=== PATIENT | male | born 1950 | race Caucasian/White ===

== ENCOUNTER 2018-01-07 09:46 | Outpatient (CLI) | payer BC, MEDICARE ==
--- NOTE | 2018-01-07 16:00 | MRI ---
MRI LUMBAR SPINE WITHOUT CONTRAST: HISTORY: Low back pain radiating down the right leg. FINDINGS: Vertebral body heights are maintained. There is a Schmorl's node at the superior endplate of the L4- L5 vertebral body. There are focal areas of slightly decreased T1 and increased T2 signal in the ann-marie tebral bodies at multiple levels, likely atypical hemangiomas. These are present in the setting of d iffuse T1 hypointensity. The conus medullaris ends at the L1 level. There are facet hypertrophic ch anges, most prominent at the L3-L4, L4-L5, and L5-S1 levels. No focal disk herniation, central canal stenosis, or neural foraminal stenosis is identified. The paraspinal musculature is normal. Incidental note is made of a 2.8 cm probably cystic mass arising from the left kidney. A 2 cm probabl e cyst is also seen in the left kidney. IMPRESSION: 1. Diffuse T1 hypointensity of the bone marrow may be due to anemia or infiltrative or neoplastic di sorders. 2. No evidence of focal disk herniation, central canal stenosis, or neural foraminal stenosis. 3. Left renal masses, likely cysts. Evaluation with bilateral renal ultrasound is recommended. This study was interpreted in consultation with Dr. Speedy Delgado, who concurs. POS: [facility]
== END 2018-01-07 09:47 | disposition home or self-care (01) ==
LOC: SCSMRI 09:46
PROVIDERS: ATTEND Internal Medicine
DX: M54.41 Lumbago with sciatica, right side (principal); R93.7 Abnormal findings on diagnostic imaging of other parts of musculoskeletal system; N28.89 Other specified disorders of kidney and ureter
CPT/HCPCS: 72148

== ENCOUNTER 2018-01-15 18:34 | Inpatient (IN) | payer BC, MEDICARE ==
[2018-01-15] MEDS ORDERED: Ondansetron ODT 4 MG TAB SL PRN (22:13)
[2018-01-15] MEDS ORDERED: Acetaminophen 325 MG TAB PO PRN (22:13)
[2018-01-15] MEDS ORDERED: Ondansetron HCl/PF 4 MG/2 ML Vial IVP PRN (22:13)
[2018-01-15 22:19] VITALS: BMI 33.0
[2018-01-15] MEDS ORDERED: hydrALAZINE 20 MG/ML VIAL SLOW IVP PRN (23:27)
[2018-01-16] MEDS ORDERED: Sodium Chloride 0.9% 1,000 ML IV SCH (02:00)
[2018-01-16] MEDS ORDERED: Prevnar 13-Val Conj/PF 0.5 ML SYRINGE IM ONE ×2 (09:00→13:00)
[2018-01-16] MEDS ORDERED: Nitroglycerin 0.4 MG TAB (25 Tab Bottle) SL PRN (09:16)
[2018-01-16] MEDS ORDERED: traZODone HCl 50 MG TAB PO PRN (09:16)
[2018-01-16] MEDS ORDERED: Calcium Carbonate 500 MG ChewTAB PO PRN (09:16)
[2018-01-16] MEDS ORDERED: Diabetic Tussin 200 MG/10 ML UDCUP PO PRN (09:16)
[2018-01-16] MEDS ORDERED: traMADol HCl 50 MG TAB PO PRN (09:16)
[2018-01-16] MEDS ORDERED: Mag-Al 1200 mg/1200 mg/30 ML UDCUP PO PRN (09:16)
[2018-01-16] MEDS ORDERED: Benzonatate 100 MG CAP PO PRN (09:16)
[2018-01-16] MEDS ORDERED: cloNIDine 0.1 MG TAB PO PRN (09:16)
[2018-01-16] MEDS ORDERED: Loratadine 10 MG TAB PO PRN (09:16)
[2018-01-16] MEDS ORDERED: hydrALAZINE 20 MG/ML VIAL SLOW IVP PRN (09:16)
[2018-01-16] MEDS ORDERED: Ondansetron HCl/PF 4 MG/2 ML Vial IVP PRN (09:16)
[2018-01-16] MEDS ORDERED: Amlodipine 5 MG TAB PO SCH (09:30)
[2018-01-16] MEDS ORDERED: traMADol HCl 50 MG TAB PO SCH (09:30)
[2018-01-16] MEDS ORDERED: Hydrochlorothiazide 25 MG TAB PO SCH (09:45)
[2018-01-16] MEDS ORDERED: Vancomycin HCl 1.5 GM in Sodium Chloride 0.9% 250 ML 300 ML IVPB SCH (10:15)
[2018-01-16 10:28] LABS: ALT (SGPT) 86 U/L (8-55); AST (SGOT) 26 U/L (5-34); Albumin 3.3 g/dL (3.4-4.8); Alkaline Phosphatase 144 U/L (40-150); Anion Gap 11 mmol/L (10-20); BUN (Urea Nitrogen) 15 mg/dL (8.4-25.7); Bilirubin, Total 2.2 mg/dL (0.2-1.2); Calc. Creatinine Clearance 120 mL/min (70-130); Calcium 9.4 mg/dL (7.8-10.44); Carbon Dioxide 26 mmol/L (23-31); Chloride 102 mmol/L (98-107); Estimated GFR-MDRD Greater than 90; Globulin 3.2 g/dL (2.4-3.5); Glucose 133 mg/dL (80-115); Magnesium 2.1 mg/dL (1.6-2.6); Potassium 4.1 mmol/L (3.5-5.1); Protein, Total 6.5 g/dL (5.8-8.1); Sodium 135 mmol/L (136-145)
[2018-01-16 10:33] LABS: Band 1 % (5-11); Hemoglobin 13.5 g/dL (14.0-18.0); Lymphocytes 5 % (21-51); MDiff Complete? YES; Mean Corpuscular HGB CONC 31.9 g/dL (32.0-36.0); Mean Corpuscular Hemoglobin 29.8 pg (27.0-31.0); Mean Corpuscular Volume 93.2 fL (78.0-98.0); Mean Platelet Volume 8.8 fL (7.4-10.4); Monocytes 25 % (0-10); Neutrophil 69 % (42-75); PLT Morphology Comment PLT SLIGHTLY DECREASED; Platelet Count 114 thou/uL (130-400); RBC Distribution Width 13.6 % (11.5-14.5); Red Blood Cell (RBC) Count 4.53 mill/uL (4.70-6.10); White Blood Cell (WBC) Count 20.6 thou/uL (4.8-10.8)
--- NOTE | 2018-01-16 10:38 | HP ---
DATE OF ADMISSION: 01/16/2018 PRIMARY CARE PHYSICIAN: Evna Flynn M.D. CHIEF COMPLAINT: Fatigue, fever, abdominal pain and night sweats of 4 days duration. HISTORY OF PRESENTING ILLNESS: Mr. Calle is a very pleasant 67-year-old male with past medical histo ry of enlarged prostate, status post prostate biopsy, otherwise healthy, who came to the emergency ro om in [place] with the above-mentioned complaint. History is mainly obtained by the patient himsel f and records from [place] and our own emergency room reviewed extensively. According to Ms. Calle, he has been feeling fine up until Friday that was about 4 days ago. On morning, he woke up feeling really tired and fatigued. Since then he has been having on and of f high grade fevers as well as a dull abdominal pain that is diffuse in nature. He is constipated si nce then as well. He also noticed that he has been having excessive night sweats. He denies any rec ent weight gain or weight loss. 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 He denies any risk factors for HIV or hepatitis. He does report that about few weeks ago, he sneezed too hard and instantly felt a pull on one of the back muscles. Since then he has been having some pain that is traveling down to his leg. He has bee n treated with multiple rounds of steroids by his primary care physician as well as pain medications and it is somewhat better. He also underwent a lumbar spinal MRI on 01/07/2018 for this complaint an d it was negative for any disk herniation, central canal stenosis or neural foraminal stenosis. Left renal mass is likely cysts were seen. However, there is a diffuse T1 hypointensity of the bone deena ow, which may be due to anemia versus infiltrative process versus neoplasm. In the [place] emergency room, his initial examination showed leukocytosis with WBC count of 23,[address] scan of the abdomen and pelvis was done and I do not have the results of the test, but it stat es that it showed hypodense lesions in the spleen with phlegmonous changes characteristic of abscess. He received vancomycin and Rocephin and 2 liters normal saline in [place] and was transferred to our facility. In our emergency room upon presentation, he was hypertensive with blood pressure of 176/81, otherwise hemodynamically stable, temperature 98.3. He was stable and is now being admitted for further evalu ation and care. He has received pneumococcal vaccine since then and more IV fluids. He denies any chest pain, shortness of breath, cough, rhinorrhea, or sore throat. He denies any bloo d in his stools or black tarry stools. He denies any muscle weakness or paresthesias. He denies any headache or vision changes. Blood cultures were obtained over at the outside Emergency Room. PAST MEDICAL HISTORY: Benign prostatic hypertrophy. PAST SURGICAL HISTORY: Prostate biopsy. SOCIAL HISTORY: He works in a residential and quit smoking about 50 years ago. He does occasionally smoke a cigar or two a day. No history of drug or alcohol abuse. FAMILY HISTORY: Significant for valve replacement and lung cancer in his father who was also a smoke r. He also had atherosclerotic disease. No family history of any cancer, bleeding or clotting disor ders. ALLERGIES: PENICILLIN. CURRENT MEDICATIONS: Tamsulosin 0.4 mg daily, Benicar 40/12.5 one tablet daily. REVIEW OF SYSTEMS: A 12 point review of systems was done. It is negative except for those mentioned in the history and physical. LABORATORY DATA AND IMAGING DATA: Labs are reviewed from the [place] [facility]. His CBC wyatt ws WBCs of 27.20, hemoglobin 15.4, platelet 142, neutrophils 73%. Serum chemistry shows sodium 135, potassium 4, chloride 98, bicarbonate 25, anion gap 16. Blood sugar 101, BUN 17, creatinine 0.9, bentley cium 10.35, total bilirubin 2.8, alkaline phosphate is elevated to 159. AST and ALT are normal. Tot al protein is 7.6 with 3.7 grams per deciliter of the albumin. Lactic acid is less than 1.5, CK-MB i s 0.60, troponin 0.015. Urinalysis unremarkable. Chest x-ray report is negative for any acute cardi opulmonary process. Twelve lead EKG by my review shows normal sinus rhythm without any acute ST or T -wave changes. QTC is 469 milliseconds. PHYSICAL EXAMINATION: VITAL SIGNS: Most recent T-max of 99.7, heart rate 80, respirations 20, saturating 91% on room air, blood pressure 148/70. GENERAL APPEARANCE: No acute distress. He does appear ill and sweaty, but otherwise no acute distre ss. HEENT: Mucous membrane is moist and pink. No oropharyngeal exudate or erythema. No candidiasis. N o oral thrush. No scleral icterus. No conjunctival pallor. Head is normocephalic, atraumatic. Pup ils are equal, reactive to light and accommodation. NECK: Supple without any lymphadenopathy, JVD or bruit. CHEST: Clear to auscultation without any wheezing, rales or rhonchi. CARDIOVASCULAR: Rate and rhythm is regular without any murmur, rubs or gallops. ABDOMEN: Tender to palpation diffusely without any obvious bruises. EXTREMITIES: Free of any cyanosis, clubbing, or edema. BACK/MUSCULOSKELETAL: No point tenderness to spinal examination. No CVA tenderness. NEUROLOGIC: Examination is nonfocal. SKIN: Free of any rashes or bruises. I feel warm and dry to touch. PSYCHIATRIC: Normal affect. IMPRESSION AND PLAN: 1. Sepsis, likely secondary to splenic abscess. Bacteremia is suspected from an unknown source. Th e patient will be started on broad spectrum empiric IV antibiotics and we will repeat the labs includ ing CBC, CMP, magnesium, phosphorus. Check for HIV status as well. Check for urinalysis. We will also repeat the blood cultures. Given the possibility of bacteremia; infective endocarditis will als o be ruled out by a transthoracic echocardiogram. Clinical suspicion is low as there is no delta sig ns or symptoms to suggest endocarditis. Possibility of osteomyelitis versus diskitis can also not be ruled out, especially given the fact that he had even hypodensities seen in the lumbar spine. He mi ght need MRI of the thoracic and cervical spine as well. We will consult Infectious Disease, Dr. Ed evans for further recommendations with regards to that. I am trying to get the read of the CT scan done at the [place] [facility] for our EMR. Continue symptomatic and supportive care. 2. Hypertension. Resume his home medication of olmesartan/hydrochlorothiazide and add p.r.n. antihy pertensives. 3. Benign prostatic hypertrophy. Continue Flomax. 4. Code status: FULL CODE. Discussed with the patient. 5. Deep venous thrombosis and gastrointestinal prophylaxis and p.r.n. medications. DISPOSITION: Mr. Calle is currently being admitted for sepsis and splenic abscess of unknown origin. Estimated length of stay is at least 2-3 midnights. He is hemodynamically stable. Further managem ent will depend upon his clinical course in the hospital.
[2018-01-16 10:47] LABS: HIV (1/2) Antibody/Antigen Non-Reactive (NonReactive); HIV 1/2 INDEX 0.12 S/CO (<1.00)
[2018-01-16 10:53] LABS: Bilirubin Negative (Negative); Blood, Urine Negative (Negative); Clarity CLEAR (Clear); Glucose, Urine (Dipstick) Negative (Negative); Leukocyte Negative (Negative); Nitrite Negative (Negative); Protein, Urine (Dipstick) Negative (Neg-Trace); Specific Gravity, Urine 1.007 (1.002-1.036)
[2018-01-16 10:55] LABS: Bacteria/HPF None Seen HPF (None Seen); Hyaline Casts/LPF 0-3 HYALINE CAST LPF (0-3 Hyaline); Pathc Cast-AUWi Flag 0.14 (0-2.49); RBC/HPF 0-3 HPF (0-3); Squamous Epithelial None Seen HPF (0-3); WBC/HPF None Seen HPF (0-3)
[2018-01-16] MEDS ORDERED: VANCOMYCIN IVPB PRN (11:57)
[2018-01-16] MEDS ORDERED: Meropenem 1 GM in Sodium Chloride 0.9% 100 ML IVPB SCH (12:00)
[2018-01-16] MEDS: HYDROcodone/Acetaminophen 5/325 mg Tablet PO PRN ×2 (14:23→20:59)
[2018-01-16] MEDS: Sodium Chloride 0.9% 1,000 ML IV SCH ×2 (14:27→18:35)
[2018-01-16] MEDS: MEROPENEM 1 GM/50 ML 1 GM in Premix Bag 1 BAG IVPB SCH (19:35)
[2018-01-16] MEDS ORDERED: Vancomycin HCl 1 GM in Premix Bag 1 BAG IVPB SCH (21:00)
[2018-01-16] MEDS: Acetaminophen 325 MG TAB PO PRN (21:12)
[2018-01-16] MEDS: Vancomycin HCl 1.5 GM in Sodium Chloride 0.9% 250 ML 300 ML IVPB SCH (22:05)
--- NOTE | 2018-01-16 22:19 | CON ---
DATE OF CONSULTATION: 01/16/2018 REASON FOR CONSULTATION: Splenic lesions. HISTORY OF PRESENT ILLNESS: A 67-year-old with a history of BPH with a recent prostate biopsy with b enign pathology, who has developed fairly sudden onset of general malaise, fever, sweats, and abdomin al pain across the upper abdomen and left flank for the past 4 days and some respiratory symptoms, th e week prior to this with some sneezing and felt to have pulled some of his back muscles. He has rec eived corticosteroids for management of his presumed muscle sprain. He also had a lumbar spine MRI, which was not remarkable. He went to [place] [facility], because of this new development and i nitial evaluation showed white cell count 23,[address] of abdomen and pelvis, which demonstrated h ypodense lesions in the spleen. I do not have copy of the study, so other details are not available at this time. Patient has been given broad spectrum coverage and transferred. He is awake and alert . Family in the room with patient. He appears to be in no acute distress, but chronically ill, feel ing unwell. No headaches, visual symptoms, sore throat, odynophagia, dysphagia. No toothache, no ba ck pain, no dyspnea or cough. No diarrhea, no genitourinary symptoms, no joint symptoms or skin diso rder. No neurological symptoms. PAST MEDICAL HISTORY: BPH, prostate biopsy with benign pathology. SOCIAL HISTORY: Works as a general practitioner. Former smoker, quit 50 years ago. FAMILY HISTORY: Not remarkable. ALLERGIES: PENICILLIN with rash. CURRENT MEDICATIONS: Maalox, Tessalon, Dulcolax, Tums, Catapres, Lovenox, Robitussin, Apresoline, hy drochlorothiazide, Claritin, Ativan, meropenem, nitroglycerin, Senokot, vancomycin. PHYSICAL EXAMINATION: VITAL SIGNS: T-max 99.7, blood pressure 140/70, pulse 80, respirations 20, O2 sat 92%. SKIN: Not remarkable. No lymphadenopathy. HEENT: Ocular movements conjugate. Sclerae white. Pupils are equal, conjunctivae normal. Nasal pa ssages are patent. Oral cavity not remarkable. NECK: Supple. LUNGS: Symmetric air entry without any wheezing or crackles. HEART: S1, S2, regular rate without murmurs. There is tenderness in the left flank back area. I wo uld say at least moderate and sometimes marked tenderness. ABDOMEN: Not distended, no ascites. No bladder distention. : No genital abnormalities. EXTREMITIES: No joint inflammatory activity. Pulses are 1+ in dorsalis pedis. Plantar responses ar e flexure, moves extremities equally. NEUROLOGIC: Cognitive function appears to be intact. LABORATORY DATA: White cell count 20.6, hemoglobin 13.5, platelets 140,000 with 69% neutrophils, 1% bands, 5% lymphocytes, 25% monocytes. Sodium 135, creatinine 0.83, glucose 133. Bilirubin 2.2, ALT 86, albumin 3.3. Urinalysis normal. HIV nonreactive. Influenza was nonreactive. The images from [facility] CT done in [place] are not available yet and lumbar spine MRI done on 01/07/2018 with left renal masses likely cysts, diffuse T1 hypointensity bone marrow, possible anemia or infiltrative or neopla stic disorder. ASSESSMENT: 1. Benign prostatic hypertrophy. 2. Abnormalities on CT of abdomen indicative of splenic abscess. 3. Neutrophilia and fever of acute onset. DISCUSSION: Differential diagnosis includes splenic abscesses secondary to various infectious etiolo gies. Splenic abscesses are usually either hematogenous or secondary to contiguous spread from organ s in the vicinity of the spleen including possibility of kidney, pancreas, and colon. In the episode of hematogenous dissemination, the usual culprits include Staphylococcus aureus, Gram-negative rods, Bartonella, Salmonella, Brucella, and Mycobacterium tuberculosis. Contiguous spread typically with enteropathogens and anaerobes. Ideally, one would like to do a percutaneous aspirate for cultures to identify the organism and I would recommend that consultation with Radiology. Echocardiogram has al ready been performed. I do not see the interpretation yet of the echo, but if blood cultures remain negative, then though endocarditis would be unlikely. Continue current antimicrobials for the time b eisuzi.
[2018-01-17] MEDS: Acetaminophen 325 MG TAB PO PRN (02:19)
[2018-01-17] MEDS: MEROPENEM 1 GM/50 ML 1 GM in Premix Bag 1 BAG IVPB SCH ×3 (03:25→19:39)
[2018-01-17 05:35] LABS: Anion Gap 8 mmol/L (10-20); BUN (Urea Nitrogen) 12 mg/dL (8.4-25.7); Calc. Creatinine Clearance 123 mL/min (70-130); Calcium 8.8 mg/dL (7.8-10.44); Carbon Dioxide 30 mmol/L (23-31); Chloride 103 mmol/L (98-107); Estimated GFR-MDRD Greater than 90; Glucose 120 mg/dL (80-115); Potassium 3.6 mmol/L (3.5-5.1); Sodium 137 mmol/L (136-145)
[2018-01-17 06:15] LABS: Hemoglobin 12.1 g/dL (14.0-18.0); Hypochromia SLIGHT = 6-15 cells (100X) (0-5/hpf); Lymphocytes 5 % (21-51); MDiff Complete? YES; Mean Corpuscular HGB CONC 30.7 g/dL (32.0-36.0); Mean Corpuscular Hemoglobin 28.6 pg (27.0-31.0); Mean Corpuscular Volume 93.2 fL (78.0-98.0); Mean Platelet Volume 8.8 fL (7.4-10.4); Monocytes 30 % (0-10); Neutrophil 65 % (42-75); PLT Morphology Comment Appears Decreased; Platelet Count 98 thou/uL (130-400); RBC Distribution Width 13.2 % (11.5-14.5); Red Blood Cell (RBC) Count 4.22 mill/uL (4.70-6.10); White Blood Cell (WBC) Count 21.5 thou/uL (4.8-10.8)
[2018-01-17] MEDS: Hydrochlorothiazide 25 MG TAB PO SCH (08:51)
[2018-01-17] MEDS: Tamsulosin HCl 0.4 MG CAP PO SCH (08:52)
[2018-01-17] MEDS: Enoxaparin Sodium 40 MG/0.4 ML SYRINGE SC SCH (08:52)
[2018-01-17] MEDS ORDERED: Amlodipine 5 MG TAB PO SCH (09:00)
[2018-01-17] MEDS: HYDROcodone/Acetaminophen 5/325 mg Tablet PO PRN ×3 (09:55→20:26)
[2018-01-17] MEDS: Vancomycin HCl 1.5 GM in Sodium Chloride 0.9% 250 ML 300 ML IVPB SCH ×2 (11:37→22:36)
[2018-01-17] MEDS: Sodium Chloride 0.9% 1,000 ML IV SCH (17:00)
[2018-01-17] MEDS: Bisacodyl 5 MG TAB PO PRN (20:30)
[2018-01-17 22:29] LABS: Vancomycin, Trough 9.9 ug/mL
[2018-01-18] MEDS: Lorazepam 1 MG TAB PO PRN ×2 (00:44→12:09)
[2018-01-18] MEDS: HYDROcodone/Acetaminophen 5/325 mg Tablet PO PRN ×5 (00:44→21:55)
[2018-01-18] MEDS: MEROPENEM 1 GM/50 ML 1 GM in Premix Bag 1 BAG IVPB SCH ×3 (03:11→19:22)
[2018-01-18] MEDS: Sodium Chloride 0.9% 1,000 ML IV SCH ×2 (06:02→21:59)
[2018-01-18] MEDS: Vancomycin HCl 1.5 GM in Sodium Chloride 0.9% 250 ML 300 ML IVPB SCH ×3 (07:38→23:54)
[2018-01-18] MEDS: Hydrochlorothiazide 25 MG TAB PO SCH (07:40)
[2018-01-18] MEDS: Tamsulosin HCl 0.4 MG CAP PO SCH (07:40)
[2018-01-18] MEDS: Enoxaparin Sodium 40 MG/0.4 ML SYRINGE SC SCH (07:41)
[2018-01-18 09:31] LABS: Hemoglobin 12.2 g/dL (14.0-18.0); Mean Corpuscular HGB CONC 32.2 g/dL (32.0-36.0); Mean Corpuscular Hemoglobin 30.2 pg (27.0-31.0); Mean Corpuscular Volume 93.6 fL (78.0-98.0); Mean Platelet Volume 9.1 fL (7.4-10.4); Platelet Count 90 thou/uL (130-400); RBC Distribution Width 13.1 % (11.5-14.5); Red Blood Cell (RBC) Count 4.03 mill/uL (4.70-6.10); White Blood Cell (WBC) Count 13.5 thou/uL (4.8-10.8)
[2018-01-18 09:48] LABS: Anion Gap 9 mmol/L (10-20); BUN (Urea Nitrogen) 10 mg/dL (8.4-25.7); Calc. Creatinine Clearance 123 mL/min (70-130); Carbon Dioxide 30 mmol/L (23-31); Chloride 101 mmol/L (98-107); Estimated GFR-MDRD Greater than 90; Glucose 102 mg/dL (80-115); Potassium 3.4 mmol/L (3.5-5.1); Sodium 137 mmol/L (136-145)
[2018-01-18 10:07] LABS: Band 2 % (5-11); Hypochromia SLIGHT = 6-15 cells (100X) (0-5/hpf); Large Platelets SLIGHT; Lymphocytes 8 % (21-51); MDiff Complete? YES; Monocytes 30 % (0-10); Neutrophil 58 % (42-75); PLT Morphology Comment Appears Decreased; Polychromasia SLIGHT = 2-3 cells (100X) (0-2/hpf); Reactive Lymphocytes 2 % (0-10)
[2018-01-18] MEDS: Senokot 8.6 MG TAB PO PRN (12:09)
--- NOTE | 2018-01-18 18:52 | RAD ---
KUB AND UPRIGHT AND PA CHEST: HISTORY: Splenic abscess. Sepsis. Increased abdominal pain. COMPARISON: CT study from 01/15/2018. FINDINGS: ABDOMEN: The bowel gas pattern shows air within some mildly distended small bowel loops and some gas eous distention in the colon. No free air is demonstrated. No radiopaque calculi are visualized. CHEST: Heart size is within normal limits. There are some linear parenchymal changes within the rig ht base, suggesting some minimal atelectasis. No confluent infiltrate. Calcified hilar lymph nodes are noted. IMPRESSION: Gaseous distention of the abdomen without signs of obstruction. POS: [facility]
[2018-01-18 23:47] LABS: Vancomycin, Trough 19.9 ug/mL
[2018-01-19] MEDS: Lorazepam 1 MG TAB PO PRN (03:58)
[2018-01-19] MEDS: HYDROcodone/Acetaminophen 5/325 mg Tablet PO PRN ×3 (03:58→21:24)
[2018-01-19] MEDS: MEROPENEM 1 GM/50 ML 1 GM in Premix Bag 1 BAG IVPB SCH ×3 (04:01→19:37)
[2018-01-19 04:45] LABS: Anion Gap 16 mmol/L (10-20); BUN (Urea Nitrogen) 13 mg/dL (8.4-25.7); Calc. Creatinine Clearance 118 mL/min (70-130); Calcium 9.8 mg/dL (7.8-10.44); Carbon Dioxide 28 mmol/L (23-31); Chloride 98 mmol/L (98-107); Estimated GFR-MDRD 89; Glucose 104 mg/dL (80-115); Potassium 3.6 mmol/L (3.5-5.1); Sodium 138 mmol/L (136-145)
[2018-01-19 04:50] LABS: Hemoglobin 13.1 g/dL (14.0-18.0); Hypochromia SLIGHT = 6-15 cells (100X) (0-5/hpf); Lymphocytes 5 % (21-51); MDiff Complete? YES; Mean Corpuscular HGB CONC 31.7 g/dL (32.0-36.0); Mean Corpuscular Hemoglobin 29.7 pg (27.0-31.0); Mean Corpuscular Volume 93.8 fL (78.0-98.0); Mean Platelet Volume 9.6 fL (7.4-10.4); Monocytes 22 % (0-10); Neutrophil 73 % (42-75); PLT Morphology Comment Appears Adequate; Platelet Count 131 thou/uL (130-400); Red Blood Cell (RBC) Count 4.42 mill/uL (4.70-6.10); White Blood Cell (WBC) Count 13.9 thou/uL (4.8-10.8)
[2018-01-19] MEDS: Enoxaparin Sodium 40 MG/0.4 ML SYRINGE SC SCH (08:32)
[2018-01-19] MEDS: Vancomycin HCl 1.25 GM in Sodium Chloride 0.9% 250 ML 250 ML IVPB SCH ×3 (08:32→23:41)
[2018-01-19] MEDS: Hydrochlorothiazide 25 MG TAB PO SCH (08:33)
[2018-01-19] MEDS: Tamsulosin HCl 0.4 MG CAP PO SCH (08:33)
[2018-01-19] MEDS: Bisacodyl 5 MG TAB PO PRN (08:35)
--- NOTE | 2018-01-19 08:55 | PDOC.PN ---
- Subjective Encounter Start Date: 01/17/18 Encounter Start Time: 12:50 -: old records requested/rev Pt seen and examined, chart reviewed inits entirety, this is my first visit with this patient follow up for splenic lesions, thought be abscesses. Seen by ID, Meropenem continued. Dr Hsieh favors getting a biopsy or aspirate. Pt has tmax decreasing, 100.1 overnight. abs pain persists, controlled somewhat. NO N/V, no CP or SOB, no Diarrhea. No BM since last friday All systems reviewed and neg x as above - Objective Resuscitation Status: Resuscitation Status FULL:Full Resuscitation MAR Reviewed: Yes Vital Signs & Weight: Vital Signs (12 hours) Temp Pulse Resp BP Pulse Ox 01/19/18 07:35 98.3 F 74 14 135/77 93 L Weight Weight 223 lb 4.8 oz I&O: 01/18/18 01/19/18 01/20/18 06:59 06:59 06:59 Intake Total 4730 4085 Output Total 3600 3775 Balance 1130 310 Result Diagrams: 01/19/18 03:56 01/19/18 03:56 Additional Labs: WBC 20.1 to 21.5. Radiology Reviewed by me: Yes EKG Reviewed by me: Yes Phys Exam - Physical Examination Constitutional: NAD HEENT: PERRLA, moist MMs, sclera anicteric, oral pharynx no lesions Neck: no nodes, no JVD, supple, full ROM Respiratory: no wheezing, no rales, no rhonchi, clear to auscultation bilateral Cardiovascular: RRR, no significant murmur, no rub Gastrointestinal: positive bowel sounds tense, distended and tympanitic, mild diffuse tenderness, no rebound Musculoskeletal: edema present Neurological: non-focal, normal sensation, moves all 4 limbs Lymphatic: no nodes Psychiatric: normal affect, A&O x 3 Skin: no rash, normal turgor, cap refill <2 seconds Dx/Plan (1) Splenic abscess Code(s): D73.3 - ABSCESS OF SPLEEN Status: Acute Comment: meropenem, BCx neg to date, [facility] (2) Sepsis Code(s): A41.9 - SEPSIS, UNSPECIFIED ORGANISM Status: Acute Qualifiers: Sepsis type: sepsis due to unspecified organism Qualified Code(s): A41.9 - Sepsis, unspecified organism Comment: met criteria on admit. improving (3) HTN (hypertension) Code(s): I10 - ESSENTIAL (PRIMARY) HYPERTENSION Status: Chronic Qualifiers: Hypertension type: essential hypertension Qualified Code(s): I10 - Essential (primary) hypertension (4) BPH (benign prostatic hyperplasia) Code(s): N40.0 - BENIGN PROSTATIC HYPERPLASIA WITHOUT LOWER URINRY TRACT SYMP Status: Chronic Qualifiers: Lower urinary tract symptom presence: symptoms absent Qualified Code(s): N40.0 - Benign prostatic hyperplasia without lower urinary tract symptoms (5) Back pain Code(s): M54.9 - DORSALGIA, UNSPECIFIED Status: Acute Qualifiers: Back pain location: low back pain Chronicity: acute Back pain laterality : bilateral Sciatica presence: with sciatica Sciatica laterality: sciatica of right side Qualified Code(s): M54.41 - Lumbago with sciatica, right side - Plan cont current plan of care, plan discussed w/ family, continue antibiotics, PT/OT , out of bed/ambulate * .
--- NOTE | 2018-01-19 09:04 | PDOC.PN ---
- Subjective Encounter Start Date: 01/18/18 Encounter Start Time: 16:15 afebrile overnight, but increased bdominal pain. pt reports he is not passing gas, and pain is diffuse and more severe. No F/C,no N/V, still constipated. ion po though. No CP or SOB Akll systems reviewed and neg except as above. - Objective Resuscitation Status: Resuscitation Status FULL:Full Resuscitation MAR Reviewed: Yes Vital Signs & Weight: Vital Signs (12 hours) Temp Pulse Resp BP Pulse Ox 01/19/18 07:35 98.3 F 74 14 135/77 93 L Weight Weight 223 lb 4.8 oz I&O: 01/18/18 01/19/18 01/20/18 06:59 06:59 06:59 Intake Total 4730 4085 Output Total 3600 3775 Balance 1130 310 Result Diagrams: 01/19/18 03:56 01/19/18 03:56 Phys Exam - Physical Examination look in acute discomfort HEENT: PERRLA, moist MMs, sclera anicteric, oral pharynx no lesions Neck: no nodes, no JVD, supple, full ROM Respiratory: no wheezing, no rales, no rhonchi Cardiovascular: RRR, no rub tense, distended, scant bowel sounds. diffusely tender. no rebound Musculoskeletal: edema present Neurological: non-focal, normal sensation, moves all 4 limbs Lymphatic: no nodes Psychiatric: normal affect, A&O x 3 Skin: no rash, normal turgor, cap refill <2 seconds Dx/Plan (1) Splenic abscess Code(s): D73.3 - ABSCESS OF SPLEEN Status: Acute Comment: meropenem, BCx neg to date, [facility], concerning with quiet belly and increased tenderness. AAS ordered (2) Sepsis Code(s): A41.9 - SEPSIS, UNSPECIFIED ORGANISM Status: Acute Qualifiers: Sepsis type: sepsis due to unspecified organism Qualified Code(s): A41.9 - Sepsis, unspecified organism Comment: met criteria on admit. improving, WBC down (3) HTN (hypertension) Code(s): I10 - ESSENTIAL (PRIMARY) HYPERTENSION Status: Chronic Qualifiers: Hypertension type: essential hypertension Qualified Code(s): I10 - Essential (primary) hypertension (4) BPH (benign prostatic hyperplasia) Code(s): N40.0 - BENIGN PROSTATIC HYPERPLASIA WITHOUT LOWER URINRY TRACT SYMP Status: Chronic Qualifiers: Lower urinary tract symptom presence: symptoms absent Qualified Code(s): N40.0 - Benign prostatic hyperplasia without lower urinary tract symptoms (5) Back pain Code(s): M54.9 - DORSALGIA, UNSPECIFIED Status: Acute Qualifiers: Back pain location: low back pain Chronicity: acute Back pain laterality : bilateral Sciatica presence: with sciatica Sciatica laterality: sciatica of right side Qualified Code(s): M54.41 - Lumbago with sciatica, right side - Plan cont current plan of care, continue antibiotics * . follow up on ID recs
--- NOTE | 2018-01-19 09:07 | PDOC.PN ---
- Subjective Encounter Start Date: 01/19/18 Encounter Start Time: 09:06 Has lower abdominal pain. Believes it is constipation. Has not had BM in a week. Very atypical for him. He has had a laxative and believes it will work soon. Otherwise, no new complaints. - Objective Resuscitation Status: Resuscitation Status FULL:Full Resuscitation Vital Signs & Weight: Vital Signs (12 hours) Temp Pulse Resp BP Pulse Ox 01/19/18 07:35 98.3 F 74 14 135/77 93 L Weight Weight 223 lb 4.8 oz I&O: 01/18/18 01/19/18 01/20/18 06:59 06:59 06:59 Intake Total 4730 4085 Output Total 3600 3775 Balance 1130 310 Result Diagrams: 01/19/18 03:56 01/19/18 03:56 Phys Exam - Physical Examination Constitutional: NAD Respiratory: no wheezing, no rales, no rhonchi Cardiovascular: RRR, no significant murmur, no rub Gastrointestinal: soft, positive bowel sounds Tender across lower abdomen. Musculoskeletal: no edema Psychiatric: normal affect, A&O x 3 Skin: normal turgor Dx/Plan (1) Splenic abscess Code(s): D73.3 - ABSCESS OF SPLEEN Status: Acute (2) BPH (benign prostatic hyperplasia) Code(s): N40.0 - BENIGN PROSTATIC HYPERPLASIA WITHOUT LOWER URINRY TRACT SYMP Status: Chronic Qualifiers: Lower urinary tract symptom presence: symptoms absent Qualified Code(s): N40.0 - Benign prostatic hyperplasia without lower urinary tract symptoms (3) HTN (hypertension) Code(s): I10 - ESSENTIAL (PRIMARY) HYPERTENSION Status: Chronic Qualifiers: Hypertension type: essential hypertension Qualified Code(s): I10 - Essential (primary) hypertension (4) Constipation Code(s): K59.00 - CONSTIPATION, UNSPECIFIED Status: Acute - Plan * Getting updated report on blood cultures from [place]. If negative, will likely need an aspiration of the one of the splenic lesions. Discussed with Radiologist. Lesions are small, but may be amenable to US guided FNA. * Encouraged ambulation. * WBC are better, but patient had been on steroids prior to admission. Unclear Leukocytosis was related to that or the infection. Fever has resolved. Source is still unclear.
--- NOTE | 2018-01-19 15:21 | ULT ---
SPLEEN ULTRASOUND: HISTORY: Abnormal hypodensities noted in the spleen on recent CT performed at the [facility]. Evaluate for possible lesions that can be drained or biopsied. COMPARISON: None. TECHNIQUE: Sagittal and transverse imaging of the spleen is performed. FINDINGS: There are multiple ill-defined, subcentimeter, hypoechoic lesions scattered throughout the spleen. O verall, the spleen measures 6.8 x 13.9 x 12.6 cm. IMPRESSION: Multiple subcentimeter, ill-defined hypoechoic lesions throughout the spleen. Given the size of the lesions and their overall ill-defined nature, percutaneous aspiration/biopsy is not recommended at th is time. Should these lesions grow or the blood cultures come out inconclusive, follow-up imaging ca n be performed, and percutaneous aspiration/biopsy can be performed once these lesions become bigger in size and allow for percutaneous aspiration/biopsy. The results of the study were discussed with Dr. Celestin on 01/19/2018 at 3:00 p.m. CODE CR POS: [facility]
[2018-01-19] MEDS: Senokot 8.6 MG TAB PO PRN (15:29)
[2018-01-19] MEDS: Sodium Chloride 0.9% 1,000 ML IV SCH ×2 (19:37→22:01)
[2018-01-19 23:38] LABS: Vancomycin, Trough 18.4 ug/mL
[2018-01-20] MEDS: HYDROcodone/Acetaminophen 5/325 mg Tablet PO PRN ×4 (02:40→23:14)
[2018-01-20] MEDS: MEROPENEM 1 GM/50 ML 1 GM in Premix Bag 1 BAG IVPB SCH ×3 (03:51→20:03)
--- NOTE | 2018-01-20 07:23 | PRG ---
DATE OF SERVICE: 01/19/2018 HISTORY: Mr. Calle is not back to normal yet. He feels a little better, still with a little bit of pain, particularly in the abdominal area or periumbilical region when he lays on his side, either the right and left lateral decubitus. No respiratory symptoms, no genitourinary symptoms, no neurological symptoms. PHYSICAL EXAMINATION: VITAL SIGNS: Temperature max 98.3, blood pressure 127/64, pulse 85. LUNGS: Symmetric. GENERAL: Awake, alert. HEART: S1, S2. ABDOMEN: Soft with mild to moderate tenderness, the likely region left upper quadrant. LABORATORY DATA: White cell count is at 13.9, hemoglobin 13, platelets 131, 72 % neutrophils. Microbiology with negative blood cultures thus far. The patient had a splenic ultrasound done that showed multiple sessile, ill- defined hypoechoic lesions of the spleen. Aspiration is not feasible because of the size. ASSESSMENT AND DISCUSSION: Benign prostatic hypertrophy. Multiples small splenic abscesses with fever. The patient most likely has hematogenous splenic abscesses, they are not amenable to percutaneous aspirate, I recommend continuation of broad spectrum coverage for a protracted period of time and follow up CT images. Check Bartonella serology. ARNULFOD
[2018-01-20] MEDS: Hydrochlorothiazide 25 MG TAB PO SCH (08:13)
[2018-01-20] MEDS: Tamsulosin HCl 0.4 MG CAP PO SCH (08:14)
[2018-01-20] MEDS: Saccharomyces boulardii 250 MG CAP PO SCH ×2 (08:14→20:02)
[2018-01-20] MEDS: Vancomycin HCl 1.25 GM in Sodium Chloride 0.9% 250 ML 250 ML IVPB SCH ×3 (08:14→23:35)
[2018-01-20] MEDS: Bisacodyl 5 MG TAB PO PRN (08:15)
[2018-01-20] MEDS: Enoxaparin Sodium 40 MG/0.4 ML SYRINGE SC SCH (08:15)
[2018-01-20] MEDS: Sodium Chloride 0.9% 1,000 ML IV SCH (12:02)
--- NOTE | 2018-01-20 12:28 | PQF ---
CLINICAL DOCUMENTATION IMPROVEMENT CLARIFICATION FORM: ICD-10 Updated PLEASE DO AN ADDENDUM TO THE PROGRESS NOTE WITH ANY DOCUMENTATION UPDATES OR ADDITIONS AND CARRY THROUGH TO DC SUMMARY. THANK YOU. DATE: 01/20/18; 01/21/18 ATTN: Dr. Celestin Please exercise your independent, professional judgment in responding to the clarification form. Clinical indicators are provided on the bottom of this form for your review Please check appropriate box(s) to clarify if the following diagnosis has been ruled in or ruled out: SEPSIS [ x] Ruled in diagnosis [ x] Continue to treat [ ] Resolved [ ] Ruled out diagnosis [ ] Cannot rule out diagnosis [ ] Other diagnosis [ ] Unable to determine In addition, please specify: Present on Admission (POA): [ x] Yes [ ] No [ ] Unable to determine For continuity of documentation, please document condition throughout progress notes and discharge summary. Thank You. CLINICAL INDICATORS - SIGNS / SYMPTOMS / LABS H&P 01/16: LABS FROM [facility]: WBCS 27.2 VS: T-MAX 99.7 HR 80, RESP 20 , SAT 91% RA. BP 148/70 SEPSIS, LIKELY SECONDARY TO SPLENIC ABSCESS. LABS 01/16: WBC 20.6 NURSING VS 01/16: TEMP 101.7 PN 01/18: SEPSIS DUE TO UNSPECIFIED ORGANISM. RISKS: H&P: WORKS IN A LONG TERM. MEDICAL HX OF ENLARGED PROSTATE, S/P BIOPSY. FATIGUE, FEVER, ABD PAIN AND NIGHT SWEATS 4 DAYS DURATION. SPLENIC ABSCESS TREATMENT: H&P 01/16: STARTED ON BROAD SPECTRUM EMPIRIC IV ANTIBIOTICS. ID CONSULT Thank you, Lliliana (This form is maintained as a part of the permanent medical record) 2014 [employer]. All Rights Reserved Lilliana Baird RN, BSN [email or web address] Office: [phone] [facility] HOSPITALDennis
[2018-01-20] MEDS ORDERED: Fleet Enema 133 ML BOT PR PRN (14:43)
[2018-01-20] MEDS ORDERED: Polyethylene Glycol 3350 17 GM Packet PO SCH (14:45)
--- NOTE | 2018-01-20 15:47 | PDOC.PN ---
- Subjective Encounter Start Date: 01/20/18 Encounter Start Time: 12:00 Still feels very constipated. That is his primary complaint. No significant BM yesterday. - Objective Resuscitation Status: Resuscitation Status FULL:Full Resuscitation Vital Signs & Weight: Vital Signs (12 hours) Temp Pulse Resp BP Pulse Ox 01/20/18 09:16 97.9 F 78 16 164/78 H 91 L Weight Weight 223 lb 4.8 oz I&O: 01/19/18 01/20/18 01/21/18 06:59 06:59 06:59 Intake Total 4085 3205 Output Total 3775 2500 800 Balance 310 705 -800 Result Diagrams: 01/19/18 03:56 01/19/18 03:56 Phys Exam - Physical Examination Constitutional: NAD HEENT: oral pharynx no lesions Respiratory: no wheezing, no rales, no rhonchi, clear to auscultation bilateral Cardiovascular: RRR, no significant murmur Gastrointestinal: soft, positive bowel sounds Slightly distended. TTP on Right abdomen. Palpation of RUQ causes some referred pain in lower abdomen. Psychiatric: normal affect, A&O x 3 Dx/Plan (1) Splenic abscess Code(s): D73.3 - ABSCESS OF SPLEEN Status: Acute Comment: Unclear source. Too small for FNA. WBC coming down. Fever resolved. Current regimen appears to be working. Will not have cultures to help guide therapy. Will need prolonged course of IV abx (current regimen Vanc/Meropenem). PICC. (2) BPH (benign prostatic hyperplasia) Code(s): N40.0 - BENIGN PROSTATIC HYPERPLASIA WITHOUT LOWER URINRY TRACT SYMP Status: Chronic Qualifiers: Lower urinary tract symptom presence: symptoms absent Qualified Code(s): N40.0 - Benign prostatic hyperplasia without lower urinary tract symptoms Comment: Home meds. (3) HTN (hypertension) Code(s): I10 - ESSENTIAL (PRIMARY) HYPERTENSION Status: Chronic Qualifiers: Hypertension type: essential hypertension Qualified Code(s): I10 - Essential (primary) hypertension Comment: Stable. Home meds. (4) Constipation Code(s): K59.00 - CONSTIPATION, UNSPECIFIED Status: Acute Comment: Miralax, Fleets PRN. - Plan * Will need to arrange outpatient IV therapy. Discussed with CM. Discussed with ID. He will order PICC.
[2018-01-20 23:20] LABS: Vancomycin, Trough 19.3 ug/mL
[2018-01-21] MEDS: MEROPENEM 1 GM/50 ML 1 GM in Premix Bag 1 BAG IVPB SCH ×2 (04:21→12:42)
[2018-01-21] MEDS: Sodium Chloride 0.9% 1,000 ML IV SCH ×2 (05:32→15:27)
[2018-01-21 06:29] LABS: Anion Gap 13 mmol/L (10-20); BUN (Urea Nitrogen) 11 mg/dL (8.4-25.7); Calc. Creatinine Clearance 130 mL/min (70-130); Calcium 9.3 mg/dL (7.8-10.44); Carbon Dioxide 27 mmol/L (23-31); Chloride 103 mmol/L (98-107); Estimated GFR-MDRD Greater than 90; Glucose 102 mg/dL (80-115); Potassium 3.2 mmol/L (3.5-5.1); Sodium 140 mmol/L (136-145)
[2018-01-21 06:47] LABS: Hemoglobin 11.4 g/dL (14.0-18.0); MDiff Complete? YES; Mean Corpuscular Hemoglobin 29.7 pg (27.0-31.0); Mean Platelet Volume 8.6 fL (7.4-10.4); Platelet Count 123 thou/uL (130-400); RBC Distribution Width 12.9 % (11.5-14.5); Red Blood Cell (RBC) Count 3.82 mill/uL (4.70-6.10); White Blood Cell (WBC) Count 9.1 thou/uL (4.8-10.8)
[2018-01-21 06:48] LABS: Band 1 % (5-11); Hypochromia SLIGHT = 6-15 cells (100X) (0-5/hpf); Lymphocytes 10 % (21-51); Monocytes 18 % (0-10); Neutrophil 71 % (42-75); PLT Morphology Comment Appears Decreased
[2018-01-21] MEDS: HYDROcodone/Acetaminophen 5/325 mg Tablet PO PRN (07:38)
[2018-01-21] MEDS: Saccharomyces boulardii 250 MG CAP PO SCH (07:39)
[2018-01-21] MEDS: Tamsulosin HCl 0.4 MG CAP PO SCH (07:40)
[2018-01-21] MEDS: Hydrochlorothiazide 25 MG TAB PO SCH (07:40)
[2018-01-21] MEDS: Vancomycin HCl 1.25 GM in Sodium Chloride 0.9% 250 ML 250 ML IVPB SCH (07:41)
--- NOTE | 2018-01-21 07:45 | PDOC.PN ---
- Subjective Encounter Start Date: 01/21/18 Encounter Start Time: 07:43 Still no BM. Still uncomfortable in lower abdomen with radiation to the lower back. Has ambulated. Not passing much gas. Had the Miralax yesterday, but not the enema. No other complaints. - Objective Resuscitation Status: Resuscitation Status FULL:Full Resuscitation Vital Signs & Weight: Vital Signs (12 hours) Temp Pulse Resp BP Pulse Ox 01/20/18 20:00 98.0 F 83 20 157/81 H 94 L Weight Weight 223 lb 4.8 oz I&O: 01/20/18 01/21/18 01/22/18 06:59 06:59 06:59 Intake Total 3205 3840 Output Total 2500 2650 Balance 705 1190 Result Diagrams: 01/21/18 06:01 01/21/18 06:01 Phys Exam - Physical Examination Constitutional: NAD Respiratory: no wheezing, no rales, no rhonchi, clear to auscultation bilateral Cardiovascular: RRR, no significant murmur Gastrointestinal: soft, no distention, positive bowel sounds Tender in lower abdomen. Modest voluntary guarding at times Psychiatric: normal affect, A&O x 3 Dx/Plan (1) Splenic abscess Code(s): D73.3 - ABSCESS OF SPLEEN Status: Acute Comment: Unclear source. Too small for FNA. WBC coming down. Fever resolved. Current regimen appears to be working. Will not have cultures to help guide therapy. Will need prolonged course of IV abx (current regimen Vanc/Meropenem). PICC. (2) BPH (benign prostatic hyperplasia) Code(s): N40.0 - BENIGN PROSTATIC HYPERPLASIA WITHOUT LOWER URINRY TRACT SYMP Status: Chronic Qualifiers: Lower urinary tract symptom presence: symptoms absent Qualified Code(s): N40.0 - Benign prostatic hyperplasia without lower urinary tract symptoms Comment: Home meds. (3) HTN (hypertension) Code(s): I10 - ESSENTIAL (PRIMARY) HYPERTENSION Status: Chronic Qualifiers: Hypertension type: essential hypertension Qualified Code(s): I10 - Essential (primary) hypertension Comment: Stable. Home meds. (4) Constipation Code(s): K59.00 - CONSTIPATION, UNSPECIFIED Status: Acute Comment: Enema this morning after the PICC placed. Has normal and active bowel sounds. If no relief with enema, will check KUB, but nothing to suggest more sinister pathology on exam. (5) Hypokalemia Code(s): E87.6 - HYPOKALEMIA Status: Acute Comment: PO potassium - Plan * Get bowels to move. * PICC. * Work on setting up outpatient abx.
[2018-01-21] MEDS: Enoxaparin Sodium 40 MG/0.4 ML SYRINGE SC SCH (07:46)
[2018-01-21] MEDS ORDERED: Potassium Chloride 20 MEQ TAB PO SCH (08:00)
[2018-01-21] MEDS: Bisacodyl 5 MG TAB PO PRN (09:52)
[2018-01-21] MEDS: Senokot 8.6 MG TAB PO PRN (09:52)
[2018-01-21 10:03] VITALS: BP 176/87; TEMP 97.8
--- NOTE | 2018-01-21 10:27 | SPC ---
ULTRASOUND GUIDED LEFT UPPER EXTREMITY PICC LINE PLACEMENT: DATE: 01/21/18. HISTORY: Splenic abscesses. The patient needs long-term IV antibiotics. TECHNIQUE: The procedure including risks and complications were explained to the patient and informed consent wa s obtained. The patient was placed on the angiography table in the supine position. The left upper extremity was meticulously prepped and draped in the usual sterile fashion. Ultrasound guidance was utilized to evaluate appropriate access site. The skin and subcutaneous tiss ues were infiltrated with buffered 1% Lidocaine for local anesthesia at the intended puncture site. The left basilic vein was accessed utilizing micropuncture technique and concurrent real-time ultraso und guidance. A 5 Gabonese peelaway sheath was placed. The catheter was measured and cut to the appropriate length. The catheter was placed over the guidew stella with the tip positioned overlying the cavoatrial junction. Guidewire and peelaway sheath were re moved. The catheter was accessed/flushed easily. The catheter was secured in place utilizing a dry sterile dressing. The patient tolerated the procedure well and without immediate complication. FLUOROSCOPY: Total fluoroscopy time is 0 minutes with a total dose of 78 mGy*^cm2. FINDINGS: Technically successful placement of a single lumen 5 Gabonese 42 cm PICC line via the left basilic vein . The tip of the catheter overlies the cavoatrial junction. IMPRESSION: Technically successful left upper extremity PICC line placement. POS: JAMES
--- NOTE | 2018-01-21 13:41 | DIS ---
DATE OF ADMISSION: 01/15/2018 DATE OF DISCHARGE: 01/21/2018 DISCHARGE DIAGNOSES: 1. Sepsis. 2. Multiple small splenic abscesses. 3. T1 hypodensity of the bone marrow. 4. Hypertension. 4. History of benign prostatic hyperplasia. HISTORY: The patient is a 67-year-old male, who started feeling generally fatigued. Subsequently, d eveloped some high-grade fever and a dull abdominal pain, which was fairly diffuse. He subsequently developed some back discomfort and had an MRI of the spine through his PCP on 01/07/2018, which was n egative except showed some diffuse T1 hypodensities in the bone marrow. The patient presented to the [facility] on the day of admission with the above symptoms and was noted to have a white count of 23,000. CT scan of his abdomen and pelvis revealed evidence of a splenic abscesses . He was started on Rocephin and vancomycin and transferred to this facility with a septic-like pict ure. Blood cultures had been obtained, which were pending here. HOSPITAL COURSE: The patient was admitted to the hospital and continued on broad-spectrum IV antibio tics. Infectious Disease consult was obtained. He tolerated the antibiotics, vancomycin and meropen em, appropriately. Patient had an echocardiogram, which revealed normal cardiac function and no evid ence of vegetations. 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 Patient's fever did resolve. His white count did improve and he was feeling better in g eneral. He did continue to have some lower abdominal pain, which he felt was due to constipation. I t took a couple of days, we were able to get him to have a bowel movement that resolved his symptoms substantially. Given the fact that we had no culture results to guide us, it was felt the patient wo uld need a prolonged course of IV antibiotics. A PICC line was placed and the patient was felt to be stable for discharge to home. PHYSICAL EXAMINATION: VITAL SIGNS: On day of discharge, temperature was 97.8, pulse 83, respirations 18, O2 sat 94% on vel m air, BP 176/87. GENERAL: The patient was awake, alert, oriented, pleasant, cooperative. HEART: Regular rate and rhythm without murmurs. LUNGS: Clear bilaterally. ABDOMEN: Soft, was slightly tender in the lower abdomen, nondistended. Positive bowel sounds. No m asses, no organomegaly. EXTREMITIES: Warm and dry. LABORATORY DATA: White count was 9.1, hemoglobin 11.4. Sodium 140, potassium 3.2. DISPOSITION: The patient is discharged to home. He is to have a regular diet and a normal activity level. He will have home vancomycin and meropenem set up through Dr. Hsieh' office and he will follo w up with Dr. Hsieh tomorrow and will continue to follow up with him twice a week until he is comfort able backing down to once weekly. Otherwise, the patient will continue with his usual medications in cluding tamsulosin 0.8 mg p.o. at bedtime, tramadol 50 mg q.6 hours, and olmesartan/HCTZ 40-12.5 one p.o. daily. He should return to the emergency department should he have any problems prior to the ti me of his followup.
[2018-01-22 12:19] LABS: Bartonella henselae IgG Negative titer (Neg:<1:320); Bartonella henselae IgM Negative titer (Neg:<1:100); Bartonella quintana IgG Negative titer (Neg:<1:320); Bartonella quintana IgM Negative titer (Neg:<1:100)
== END 2018-01-21 15:41 | disposition home or self-care (01) | DRG 872 ==
LOC: ERS 18:34 → ONC 20:25
PROVIDERS: ADMIT Internal Medicine; ATTEND Internal Medicine
PROC: 02HV33Z Insertion of Infusion Device into Superior Vena Cava, Percutaneous Approach (ICD-10-PCS; principal; 2018-01-21)
DX: A41.9 Sepsis, unspecified organism (principal); D73.3 Abscess of spleen; I10 Essential (primary) hypertension; E87.6 Hypokalemia; K59.00 Constipation, unspecified; M54.41 Lumbago with sciatica, right side; R93.7 Abnormal findings on diagnostic imaging of other parts of musculoskeletal system; Z23 Encounter for immunization; N40.0 Benign prostatic hyperplasia without lower urinary tract symptoms; F17.290 Nicotine dependence, other tobacco product, uncomplicated; Z88.0 Allergy status to penicillin
CPT/HCPCS: 36415; 36569; 74022; 76705; 80048; 80053; 80202; 81001; 83735; 84100; 85025; 86611; 87040; 87389; 87804; 90471; 90670; 93306; 99285; G0009; J1650; J2185; J3370; J7050

== ENCOUNTER 2018-01-29 18:26 | Inpatient (IN) | payer BC, MEDICARE ==
[2018-01-29] MEDS ORDERED: MEROPENEM 1 GM/50 ML 1 GM in Premix Bag 1 BAG IVPB SCH (20:00)
[2018-01-29] MEDS ORDERED: Vancomycin HCl 1 GM in Premix Bag 1 BAG IVPB SCH (20:00)
[2018-01-29] MEDS ORDERED: Acetaminophen 325 MG TAB PO PRN (22:01)
[2018-01-29] MEDS ORDERED: Ondansetron PF 4 MG/2 ML Vial IVP PRN (22:01)
[2018-01-29] MEDS: Sodium Chloride 0.9% 1,000 ML IV SCH (22:48)
--- NOTE | 2018-01-30 02:42 | HP ---
CHIEF COMPLAINT: Abdominal pain. HISTORIAN: The patient. HISTORY OF PRESENT ILLNESS: This is a 67-year-old male with past medical history of hypertension, en larged prostate, pus noted in spleen, presenting with chief complaint of abdominal pain. Per the pat ient, his abdominal pain has been there and is now getting worse. Patient stated the pain has now pr ogressively gotten worse to the point that sometimes when he moves, he feels abdominal pain. Patient states that the pain is 10/10 when he went to go see Dr. Hsieh and currently is 3/10. Patient state d that he actually went to go see his Infectious Disease doctor, Dr. Hsieh, who is treating him with antibiotics as an outpatient. Patient states he is receiving vancomycin and meropenem as an outpatie nt. During the time of the visit, the patient was experiencing severe abdominal pain, therefore geno ent was referred to [facility] and a CT scan was done. The CT scan of the abdomen and pelvis , which was done showed that there might be a possible metastatic disease. Therefore, patient was tr ansferred from [facility] to our hospital to be further evaluated. The patient at this point denies a ny headaches, nausea, vomiting, chest pain, or palpitations. REVIEW OF SYSTEMS: Positive for abdominal pain, otherwise as documented in the HPI. All other syste ms are reviewed and are negative. PAST MEDICAL HISTORY: Hypertension, BPH, splenic lesions. FAMILY HISTORY: Reviewed and noncontributory to this visit. PAST SURGICAL HISTORY: Prostate biopsy. SOCIAL HISTORY: The patient drinks occasionally. Denies illicit drug use. Patient smokes tobacco d aily, 1 cigar a day. The patient lives at home alone. ALLERGIES: The patient is allergic to PENICILLIN. CURRENT MEDICATIONS: The patient takes tamsulosin 0.4 mg, Benicar 40 mg/12.5 mg, vancomycin and Merr em. PHYSICAL EXAMINATION: VITAL SIGNS: Patient's blood pressure 155/104, pulse 100, respiratory rate of 18, temperature of 97. 5, oxygen saturation of 94% on room air. GENERAL: The patient is lying in bed, does not appear to be in any acute distress. The patient is s peaking in full sentences. HEENT: Normocephalic, atraumatic. Pupils are equal, round, and react to light. Extraocular movemen ts are intact. No scleral icterus. NECK: Supple. No JVDs. Trachea is midline. LUNGS: Clear to auscultation bilaterally. No wheezing, no rales, no rhonchi appreciated. CARDIOVASCULAR: Positive S1, S2. Regular rate and rhythm. No murmurs, no gallops, no rubs apprecia william. ABDOMEN: Patient has diffused abdominal tenderness with mild palpation. Positive bowel sounds noted . EXTREMITIES: The patient has 5/5 upper extremity strength and 5/5 lower extremity strength. No irina a noted. NEUROLOGIC: Cranial nerves II through XII are grossly intact. No neurologic deficits noted. SKIN: Warm, dry, and intact. ED COURSE: The patient received meropenem, vancomycin, and normal saline. IMAGING: CT of the abdomen and pelvis showed possible metastatic process or inflammation in the abdo men. LABORATORY DATA: Pertinent labs from [facility], CEA is 10.96, total bilirubin is 1.6, alkaline phosp hatase is 203. WBC 17.17, hemoglobin is 11.9. Urinalysis is negative. ASSESSMENT AND PLAN: This is a 67-year-old male who was recently in our hospital and was treated for abdominal pain, currently receiving vancomycin and Merrem as an outpatient, being admitted for: 1. Abdominal pain, etiology unclear at this time. CT of the abdomen and pelvis shows that there is some inflammation and lesions seen in the abdomen per radiologist read, there might be possible metas tatic lesions in the abdomen. At this point, we have consulted heme/oncologist. We have consulted G I physician. We will continue patient on his home medication of vancomycin and Merrem. We will cont inue patient on these medications and we will monitor the patient and follow up with GI and heme/onco logist's recommendation. We will also consult Palliative Care for goals of care. We will give morph ine p.r.n. for pain. 2. Hypertension, currently uncontrolled. We will monitor the patient's blood pressure and give geno ent blood pressure medication as needed. 3. BPH. Restart patient on his home medications. 4. Deep venous thrombosis and gastrointestinal prophylaxis.
[2018-01-30] MEDS: Morphine 2 MG/ML SYRINGE SLOW IVP PRN ×7 (04:03→21:42)
[2018-01-30 04:58] LABS: ALT (SGPT) 65 U/L (8-55); AST (SGOT) 39 U/L (5-34); Albumin 2.7 g/dL (3.4-4.8); Alkaline Phosphatase 175 U/L (40-150); Anion Gap 10 mmol/L (10-20); BUN (Urea Nitrogen) 15 mg/dL (8.4-25.7); Bilirubin, Total 1.6 mg/dL (0.2-1.2); Calc. Creatinine Clearance 103 mL/min (70-130); Calcium 10.5 mg/dL (7.8-10.44); Carbon Dioxide 29 mmol/L (23-31); Chloride 103 mmol/L (98-107); Estimated GFR-MDRD 83; Globulin 3.3 g/dL (2.4-3.5); Glucose 87 mg/dL (80-115); Potassium 3.9 mmol/L (3.5-5.1); Sodium 138 mmol/L (136-145)
[2018-01-30 05:16] LABS: Band 2 % (5-11); Hemoglobin 10.8 g/dL (14.0-18.0); Hypochromia SLIGHT = 6-15 cells (100X) (0-5/hpf); Lymphocytes 13 % (21-51); MDiff Complete? YES; Mean Corpuscular HGB CONC 31.5 g/dL (32.0-36.0); Mean Corpuscular Hemoglobin 28.6 pg (27.0-31.0); Mean Corpuscular Volume 90.6 fL (78.0-98.0); Mean Platelet Volume 8.4 fL (7.4-10.4); Monocytes 14 % (0-10); Neutrophil 71 % (42-75); PLT Morphology Comment Appears Adequate; Platelet Count 159 thou/uL (130-400); RBC Distribution Width 13.4 % (11.5-14.5); Red Blood Cell (RBC) Count 3.76 mill/uL (4.70-6.10); White Blood Cell (WBC) Count 16.6 thou/uL (4.8-10.8)
[2018-01-30] MEDS: MEROPENEM 1 GM/50 ML 1 GM in Premix Bag 1 BAG IVPB SCH ×3 (05:21→21:40)
[2018-01-30] MEDS: Vancomycin HCl 1.5 GM in Sodium Chloride 0.9% 250 ML 300 ML IVPB SCH ×2 (07:50→19:41)
[2018-01-30] MEDS: Enoxaparin Sodium 40 MG/0.4 ML SYRINGE SC SCH (07:50)
[2018-01-30] MEDS ORDERED: Hydrochlorothiazide 25 MG TAB PO SCH (09:00)
[2018-01-30] MEDS: Famotidine/PF 20 mg/2ml Vial SLOW IVP SCH ×2 (10:13→21:41)
[2018-01-30] MEDS: Dextrose 5 %-0.45 % NaCl 1,000 ML IV SCH (11:36)
[2018-01-30 13:07] VITALS: BMI 30.8
[2018-01-30] MEDS ORDERED: GoLYTELY 4,000 ml Bottle PO SCH (15:00)
--- NOTE | 2018-01-30 15:14 | CON ---
DATE OF CONSULTATION: 01/30/2018 HISTORY OF PRESENT ILLNESS: A 67-year-old has been readmitted. I saw him in , about 2 weeks ago when he presented with a history of BPH and recent prostate biopsy with benign pathology who developed sudden onset of general malaise, fever, sweats, abdominal pain across the upper abdomen with CT scan findings suggestive of hypodense lesions in the spleen. He was given broad spectrum coverage and continued on broad spectrum antimicrobial therapy with improvement in pain resolution of fever and resolution of leukocytosis. We consulted Radiology for possible aspirate/biopsy of the splenic lesions, but that was felt to be not safe due to the small size of the lesions. The patient was discharged with a PICC line and I was contacted yesterday because of worsening pain in the abdominal area, particularly in the right upper quadrant. We directed him to go to [facility] and there CT scan was repeated which showed new findings in the lungs with nodular lesions, possible osteolytic lesion right rib cage area and colonic finding which was not present in the previous study in the transverse colon with possible stricture and some stranding around the transverse colon area. The patient was admitted again. He is currently in the Oncology unit and he is up and appears apprehensive, but no acute distress except for intermittent pain and it is not clear if it is in the right rib cage costal margin or if it is in the right upper quadrant of the abdomen. No headaches, visual symptoms, sore throat, odynophagia, dysphagia. No dyspnea, no chest pain. No vomiting, no hematemesis or melena. Had a bowel movement yesterday which was formed, voiding without difficulty. No joint symptoms outside the area of involvement. No neurological symptoms. PAST MEDICAL HISTORY: BPH, prostate biopsy with benign pathology, in the recent admission with a splenic lesions associated with fever, general malaise of acute onset. 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 Former smoker, quit 50 years ago. FAMILY HISTORY: Not remarkable. ALLERGIES: PENICILLIN with a rash. CURRENT MEDICATIONS: Include dextrose, Lovenox, Pepcid, hydralazine, meropenem , ondansetron, tamsulosin, vancomycin. PHYSICAL EXAMINATION: VITAL SIGNS: T-max 98.2, blood pressure 170/80, pulse 76, respirations 18, O2 sat 96%. SKIN: Shows the PICC line as noted before in the upper extremity. No Espinoza catheter. HEENT: Ocular movements conjugate. Oral cavity normal. NECK: Supple, no jugular distention, no back tenderness. LUNGS: With symmetric air entry without crackles or wheezing. HEART: S1, S2, regular rate. No murmurs. ABDOMEN: Tender in the right upper quadrant, but I am not clear if this reflects costal margin tenderness or related to the osteolytic lesion detected on the recent CT scan or if this is an actual abdominal area of tenderness. He may have also tenderness, related to the colonic process that was identified on CT scan. GENITOURINARY: No genital abnormalities. No bladder distention. EXTREMITIES: No joint inflammatory activity. NEUROLOGIC: Nonfocal. LABORATORY DATA: White cell count 17k and this is an increase from prior visits. His white cell count had gone down from 20,000-9000 after antimicrobials were started in the latest hospital stay and has steadily been going up since then. His hemoglobin 10.8, platelets 159. Differential shows a normal neutrophil percentage of most of the increase in white cells is related to monocytosis actually. The chemistry showed a creatinine of 0.91, calcium is mildly elevated at 10.5, bilirubin 1.6 and AST 39, ALT 65 with alkaline phosphatase 175, albumin 2.7. The previous calcium was within normal limits at 9.3. The previous AST was normal at 26 and a previous ALT was elevated at 86 and alkaline phosphatase was 144. The previous blood cultures have been negative x4 different sets. The recent CT of the abdomen shows the areas in the spleen, which are about the same. He has some possible early small lesions in the liver and he has multiple three or four nodules in the lungs both sides measuring anywhere from 0.8-1.5 cm and those were not present previously. He also has an osteolytic lesion in the rib cage area and possible mass in the transverse colon which was not identified in the previous imaging study. ASSESSMENT: History of benign prostatic hypertrophy with acute onset of fever with left upper quadrant pain with splenic lesions which have improved with antimicrobial therapy and now there has been recrudescence of pain with those findings and the latest CT scan which was about 2 weeks following the initial one. DISCUSSION: The differential diagnosis includes metastatic malignancy from colon versus lymphoma. He may have a superimposed hematogenous splenic abscesses since there had seen improvement in his inflammatory process including resolution of fever and improvement in leukocyte count with treatments. A fungal infection with tropism for bone and soft tissues such as Blastomycosis is less likely, although not completely ruled out. I believe GI consultation has been obtained for endoscopy to see if he has a primary lesion in the transverse colon that would be diagnostic. If that is not diagnostic, then may consider a bone marrow examination in view of the findings in the lumbosacral spine MRI recently completed with evidence of a marrow infiltrative process. Continue antimicrobial therapy as planned before. Serum protein electrophoresis. MTDD
--- NOTE | 2018-01-30 20:26 | PDOC.PN ---
- Subjective Encounter Start Date: 01/30/18 Encounter Start Time: 14:00 Patient seen and examined for abd pain/Abn CT. Abd pain +. No overnight events - Objective Resuscitation Status: Resuscitation Status FULL:Full Resuscitation MAR Reviewed: Yes Vital Signs & Weight: Vital Signs (12 hours) Temp Pulse Resp BP Pulse Ox 01/30/18 16:00 98.2 F 95 22 H 166/85 H 95 01/30/18 12:00 98.1 F 88 22 H 176/80 H 96 Weight Admit Weight 209 lb Weight 209 lb I&O: 01/29/18 01/30/18 01/31/18 06:59 06:59 06:59 Intake Total 592 1320 Output Total 650 1420 Balance -58 -100 Result Diagrams: 01/30/18 03:54 01/30/18 03:54 Radiology Reviewed by me: Yes (CT abd - ?malignancy) Phys Exam - Physical Examination Constitutional: NAD Neck: no JVD Respiratory: no wheezing, no rales Cardiovascular: RRR, no rub Gastrointestinal: soft, positive bowel sounds gen tender +, no guarding/rigidity Musculoskeletal: no edema Neurological: non-focal, normal sensation, moves all 4 limbs Psychiatric: normal affect, A&O x 3 Dx/Plan - Plan DVT proph w/SCDs IMPRESSION: 1. Gen abd pain 2. Abn CT abd ?malignancy 3. Recent splenic abscess 4. Obesity BMI 30.9 5. HTN / Abn LFTs/ Other issues per previous notes PLAN: Colonoscopy in AM IV Morphine AM labs Gentle IV hydration Cont Atbx DC HCTZ Review of Systems - Review of Systems Respiratory: negative: Cough, Dry, Shortness of Breath, Hemoptysis, SOB with Excertion, Pleuritic Pain, Sputum, Wheezing Cardiovascular: negative: chest pain, palpitations, orthopnea, paroxysmal nocturnal dyspnea, edema, light headedness, other Gastrointestinal: Abdominal Pain. negative: Nausea, Vomiting, Diarrhea, Constipation, Melena, Hematochezia - Medications/Allergies Allergies/Adverse Reactions: Allergies Allergy/AdvReac Type Severity Reaction Status Date / Time penicillamine Allergy Verified 01/29/18 23:51 Penicillins Allergy Verified 01/29/18 23:51 Medications: Current Medications Acetaminophen (Tylenol) 650 mg PO Q4H PRN PRN Reason: Headache/Fever/Mild Pain (1-3) Last Admin: 01/29/18 22:46 Dose: 650 mg Enoxaparin Sodium (Lovenox) 40 mg SC 0900 [facility] Last Admin: 01/30/18 07:50 Dose: 40 mg Famotidine (Pepcid) 20 mg SLOW IVP Q12HR [facility] Last Admin: 01/30/18 10:13 Dose: Not Given Hydralazine HCl (Apresoline) 10 mg SLOW IVP Q4H PRN PRN Reason: SBP Greater Than 180 Meropenem 1 gm/ Device 50 mls @ 50 mls/hr IVPB Q8HR [facility] Last Admin: 01/30/18 15:09 Dose: 50 mls Vancomycin HCl 1.5 gm/ Sodium (Chloride) 300 mls @ 200 mls/hr IVPB 0800,2000 [facility] Last Admin: 01/30/18 19:41 Dose: 300 mls Dextrose/Sodium Chloride (D5 1/2 Ns) 1,000 mls @ 50 mls/hr IV .Q20H [facility] Last Admin: 01/30/18 11:36 Dose: 1,000 mls Miscellaneous Medication (Pharmacy To Dose) 1 each IVPB PRN PRN PRN Reason: Pharmacy to dose Morphine Sulfate (Morphine) 2 mg SLOW IVP Q4H PRN PRN Reason: Moderate to Severe Pain (6-10) Last Admin: 01/30/18 19:41 Dose: 2 mg Morphine Sulfate (Morphine) 4 mg SLOW IVP Q4H PRN PRN Reason: Severe Pain (7-10) Last Admin: 01/30/18 16:50 Dose: 4 mg Olmesartan (Benicar) 40 mg PO DAILY [facility] Last Admin: 01/30/18 10:15 Dose: Not Given Ondansetron HCl (Zofran) 4 mg IVP Q6H PRN PRN Reason: Nausea/Vomiting Sodium Chloride (Flush - Normal Saline) 10 ml IVF Q12HR PRN PRN Reason: Saline Flush Last Admin: 01/30/18 19:43 Dose: 10 ml Sodium Chloride (Flush - Normal Saline) 10 ml IVF PRN PRN PRN Reason: Saline Flush Last Admin: 01/30/18 04:05 Dose: 10 ml Tamsulosin HCl (Flomax) 0.8 mg PO HS [facility]
--- NOTE | 2018-01-30 21:39 | CON ---
DATE OF CONSULTATION: 01/30/2018 GI INPATIENT CONSULTATION NOTE REQUESTING PHYSICIAN: Dr. Collier. REASON FOR CONSULTATION: Abnormal CT, abdominal pain. HISTORY OF PRESENT ILLNESS: Drake Calle is a 67-year-old man with a prior history of BPH and hyperte nsion. I met him back in 08/2015 for surveillance colonoscopy. He had had a prior history of colon polyps with prior colonoscopy in 2009. My 2016 colonoscopy showed only internal hemorrhoids and a fe w tiny terminal ileal erosions, not thought to be clinically significant. Notably, there were no aarti yps on that examination. I had recommended followup colonoscopy at a 5-year interval. Mr. Calle evidently underwent a prostate biopsy in 10/2017, which was evidently benign. He reports t hat in 11/2017 he had a fairly sudden onset of severe stabbing abdominal pain after a coughing episod e. This acutely improved, but never got completely better. Then, last month over just a few days he had the onset of severe pain in the upper abdomen, primarily in the left upper quadrant and then spr eading to be generalized. He also presented with a lot of fevers at that time. He was evaluated and a CT scan on 01/16/2018 demonstrated innumerable hypodensities of the spleen. There were also some lucencies throughout the skeleton concerning for osseous metastatic disease. He was evaluated by Dr. Hsieh given the fevers. It was felt that these lesions likely represented splenic abscesses. This was not amenable to percutaneous aspiration, so he has been treated with broad spectrum antibiotics f or the past few weeks including vancomycin and meropenem through a PICC line. Unfortunately, he has not really clinically improved. He is afebrile now, but he has had progressive worsening abdominal p ain. He has been requiring pain medications. Aside from the abdominal pain, he does tell me that hi s bowel habits have declined and he has been essentially constipated; however, when he does have a shine wel movement every few days, he denies any melena or hematochezia. His appetite has gone down and or al intake has declined through all this as well. He had repeat imaging yesterday by CT and this demo nstrated again numerous lesions throughout the spleen, but also some possible subtle liver lesions in the right and left lobes, an expansile lesion within the eighth rib on the right suggesting patholog ic fracture on the basis of metastatic disease and other extensive osseous lytic lesions as well as b ilateral pulmonary nodules. In addition to that, there is a new small volume of free fluid in the ri ght upper quadrant and concerningly there is a new focal area of severe colonic wall thickening and p ericolonic fat stranding in the distal transverse colon, possibly representing a new focal colitis ve rsus aggressive malignancy. REVIEW OF SYSTEMS: Full review of systems including constitutional, head, eyes, ears, nose, throat, GI, , cardiovascular, respiratory, musculoskeletal, and neurologic systems is negative except as no william in the HPI. PAST MEDICAL HISTORY: Hypertension, BPH, splenic lesions. FAMILY HISTORY: Noncontributory. PAST SURGICAL HISTORY: Prostate biopsy. SOCIAL HISTORY: Alcohol use is occasional. No drug use. He will have one cigar per day. He lives at home alone. ALLERGIES: PENICILLIN. OUTPATIENT MEDICATIONS: Flomax, Benicar, IV vancomycin, IV meropenem. PHYSICAL EXAMINATION: VITAL SIGNS: Temperature 98.1, pulse 88, blood pressure 176/80, 96% oxygen saturation on 2 liters na grabiel cannula. GENERAL: A 67-year-old man, lying in bed, in mild to moderate distress from abdominal pain . SKIN: No jaundice, no rash visible or palpable. EYES: No scleral icterus. Extraocular movements intact. ENT: Mucous membranes moist, no oral lesions. LYMPH: No submandibular or supraclavicular lymphadenopathy. THYROID: Nontender to palpation. HEART: Regular rate and rhythm. LUNGS: Clear to auscultation bilaterally. ABDOMEN: Nondistended. Bowel sounds are hypoactive, soft, but tender to palpation diffusely through out the abdomen. No guarding or rebound tenderness. EXTREMITIES: No peripheral edema. NEUROLOGICAL: Cranial nerves II-XII intact bilaterally. No focal deficits. VESSELS: Radial pulses 2+ bilaterally. LABORATORY STUDIES: WBC elevated to 16.6, hemoglobin 10.8, platelets 159. Sodium 138, potassium 3.9 , BUN 15, creatinine 0.91, calcium elevated at 10.5, total bilirubin 1.6, alkaline phosphatase 175, A ST 39, ALT 65, albumin 2.7. Per admission note, the patient also had an outside CEA level which was elevated to 10.96. IMAGING STUDIES: CT of the abdomen and pelvis from 01/16/[address] of the abdomen and pelvi s from 01/29/2018, as detailed in the HPI. ASSESSMENT AND PLAN: 1. Generalized abdominal pain. 2. Abnormal CT scan of the colon, suggestive of aggressive malignancy versus focal colitis in the di stal transverse colon. 3. Concern for metastatic disease to spleen, liver, lung, and bone. The patient's overall presentat ion is quite concerning for aggressive metastatic disease. Primary source of this is unknown at this time. Given the abnormal CT scan showing this possible lesion in the distal transverse colon, this would be a prime candidate. Though notably, he had a normal colonoscopy just 2 years ago and this le elliott was not apparent on recent CT scan from just a few weeks ago. Further investigation is certainl y warranted. We will administer bowel preparation this evening and plan for diagnostic colonoscopy t omorrow. If this colonoscopy is unrevealing, we would also perform EGD at that time. Thank you for the consultation. Please call any time with questions or concerns.
[2018-01-30] MEDS: Tamsulosin HCl 0.4 MG CAP PO SCH (21:49)
--- NOTE | 2018-01-30 21:52 | CON ---
DATE OF CONSULTATION: 01/30/2018 REASON FOR CONSULTATION: Possible metastatic disease. HISTORY OF PRESENT ILLNESS: Mr. Calle is a 67-year-old male who presented to the emergency room with worsening abdominal pain. He was recently discharged from this facility in late December where he was treated for splenic abscesses. During that hospitalization, he had a scan which showed innumerable hyperdensities of the spleen. Unfortunately, they were so small and they were unable to obtain fluid from the area on the same CT scan. He had lucent foci throughout the skeleton concerni ng for metastatic disease. He also had marked prostatomegaly. I did have a negative prostate biopsy earlier in the year. In the emergency room in [place] yesterday, he had a repeat CT scan of the a bdomen which showed severe colonic thickening and pericolonic fat stranding in the distal transverse colon. It again showed the extensive osseous lytic lesions. There were also small 3 subcentimeter p ulmonary nodules. The lesions in spleen were stable. He has been on antibiotics since discharged fr om this facility and is being cared for by Dr. Hsieh. The patient had leukocytosis on his prior admi ssion which resolved by time of discharge. His WBCs were elevated in the emergency room yesterday wi th a 16.6, his hemoglobin was 10.8 and his platelet count was 159,000. He had 71% neutrophils, 2% ba nds, and 13% lymphocytes. His calcium was mildly elevated at 10.5. He also had mildly elevated live r enzymes and a protein that was normal. His antibiotics have been continued on this admission. He recently received a dose of IV morphine just prior to my arrival and patient was very somnolent and h istory was mostly obtained from chart review. PAST MEDICAL HISTORY: 1. Recent sepsis. 2. Splenic abscesses/lesions. 3. T1 hypodensity of the bone marrow. 4. Hypertension. 5. Benign prostatic hypertrophy. PAST SURGICAL HISTORY: PICC line placement. ALLERGIES: PENICILLIN. HOME MEDICATIONS: 1. Olmesartan and hydrochlorothiazide daily. 2. Flomax daily. 3. Tramadol p.r.n. FAMILY HISTORY: Noncontributory. SOCIAL HISTORY: , lives with his spouse. No alcohol or illicit drug use. REVIEW OF SYSTEMS: Unable to see him secondary to somnolence. PHYSICAL EXAMINATION: VITAL SIGNS: Temperature is 98.1, pulse is 88, respiratory rate 22, BP is 176/80, he is 96% on 2 lit ers. GENERAL: Well-developed and well-nourished male in mild pain. HEENT: Normocephalic, atraumatic. Pupils are equal and reactive to light. NECK: Supple. CARDIOVASCULAR: Regular rate and rhythm. LUNGS: Clear. ABDOMEN: Exquisitely tender to palpation. EXTREMITIES: No clubbing, cyanosis or edema. SKIN: No rash. HEMATOLOGIC: No petechia or purpura. NEUROLOGICAL: Nonfocal. PERTINENT LABORATORY DATA AND IMAGING DATA: Current WBCs are 16.6, hemoglobin 10.8, hematocrit 34.1, platelet count 159,000, 71% neutrophils, 13% lymphocytes. Sodium is 138, potassium 3.9, chloride 10 3, CO2 is 29, BUN is 15, creatinine 0.91, calcium is 10.5, total bilirubin is 1.6, AST is 39, ALT 65, alkaline phosphatase is 175, serum total protein 6, albumin 2.7, globulin 3.3. IMPRESSION: 1. Abdominal pain with transverse colon wall thickening. 2. Splenic lesions. 3. Lytic lesions. 4. Mild hypercalcemia. DISCUSSION: The patient's antibiotics have been resumed. He is on IV fluids and pain control. Dr. Miller has seen the patient and endoscopy is planned for tomorrow. We will check an SPEP, CEA and a PS A and further recommendations will be based on the above results.
[2018-01-31] MEDS: Morphine 2 MG/ML SYRINGE SLOW IVP PRN ×7 (00:19→21:37)
[2018-01-31] MEDS: MEROPENEM 1 GM/50 ML 1 GM in Premix Bag 1 BAG IVPB SCH ×3 (04:51→21:39)
[2018-01-31 05:45] LABS: ALT (SGPT) 56 U/L (8-55); AST (SGOT) 33 U/L (5-34); Albumin 2.8 g/dL (3.4-4.8); Alkaline Phosphatase 180 U/L (40-150); Anion Gap 11 mmol/L (10-20); BUN (Urea Nitrogen) 14 mg/dL (8.4-25.7); Bilirubin, Total 1.8 mg/dL (0.2-1.2); Calc. Creatinine Clearance 111 mL/min (70-130); Calcium 10.4 mg/dL (7.8-10.44); Carbon Dioxide 33 mmol/L (23-31); Chloride 100 mmol/L (98-107); Estimated GFR-MDRD Greater than 90; Globulin 3.8 g/dL (2.4-3.5); Glucose 119 mg/dL (80-115); Magnesium 1.9 mg/dL (1.6-2.6); Potassium 3.7 mmol/L (3.5-5.1); Protein, Total 6.6 g/dL (5.8-8.1); Sodium 140 mmol/L (136-145)
[2018-01-31] MEDS ORDERED: Bisacodyl 10 MG SUPP PR SCH ×2 (07:15)
[2018-01-31] MEDS ORDERED: Morphine 4 MG/ML VIAL SLOW IVP SCH (07:15)
[2018-01-31] MEDS: Dextrose 5 %-0.45 % NaCl 1,000 ML IV SCH (07:30)
[2018-01-31] MEDS: Vancomycin HCl 1.5 GM in Sodium Chloride 0.9% 250 ML 300 ML IVPB SCH ×2 (08:07→20:15)
[2018-01-31] MEDS ORDERED: Bisacodyl 5 MG TAB PO SCH ×2 (09:45→10:00)
[2018-01-31] MEDS: Enoxaparin Sodium 40 MG/0.4 ML SYRINGE SC SCH (10:09)
[2018-01-31] MEDS: Famotidine/PF 20 mg/2ml Vial SLOW IVP SCH ×2 (10:09→21:35)
[2018-01-31 11:12] LABS: Band 6 % (5-11); Hemoglobin 11.7 g/dL (14.0-18.0); Hypochromia SLIGHT = 6-15 cells (100X) (0-5/hpf); MDiff Complete? YES; Mean Corpuscular Hemoglobin 28.5 pg (27.0-31.0); Mean Platelet Volume 9.1 fL (7.4-10.4); Microcytosis SLIGHT = 6-15 cells (100X) (0-5/hpf); Monocytes 39 % (0-10); Neutrophil 55 % (42-75); PLT Morphology Comment Appears Adequate; Platelet Count 160 thou/uL (130-400); Polychromasia SLIGHT = 2-3 cells (100X) (0-2/hpf); RBC Distribution Width 13.6 % (11.5-14.5); White Blood Cell (WBC) Count 20.2 thou/uL (4.8-10.8)
--- NOTE | 2018-01-31 11:55 | CT ---
CT CHEST WITH IV COTNRAST: HISTORY: Abdominal masses. Metastatic disease. FINDINGS: Within the left lateral lung base near the left cardiac margin, a 1.1 cm noncalcified nodule is appar ent. Multiple smaller soft tissue density nodules are present throughout each lung. A small amount of bilateral pleural fluid and mild bibasilar atelectasis. Fluid distention of the esophagus. There is calcification throughout the arterial structures. Nonenlarged lymph nodes are scattered about th e mediastinum. Pathologic fracture with mild displacement involves the posterolateral aspect of the right 8th rib. There are innumerable ill-defined lytic lesions throughout the thoracic spine and ribs. IMPRESSION: 1. Metastatic lesions throughout each lung and the osseous structures of the chest. 2. Atherosclerosis. 3. A large amount of gastroesophageal reflux. POS: JAMES
[2018-01-31] MEDS ORDERED: ISOVUE-370 76%-LOCM 1 ML ONE (13:33)
--- NOTE | 2018-01-31 15:11 | PDOC.PN ---
- Subjective Encounter Start Date: 01/31/18 Encounter Start Time: 15:09 Mr. Calle was seen today in follow-up of abdominal pain. He says he has been able to rest some today, so therefore he believes the abdominal pain is a bit better. He does not have any other complaints. - Objective Resuscitation Status: Resuscitation Status FULL:Full Resuscitation MAR Reviewed: Yes Vital Signs & Weight: Vital Signs (12 hours) Temp Pulse Resp BP Pulse Ox 01/31/18 11:06 97.7 F 94 18 171/88 H 96 01/31/18 08:00 97.7 F 92 18 150/78 H 94 L Weight Admit Weight 209 lb Weight 209 lb I&O: 01/30/18 01/31/18 02/01/18 06:59 06:59 06:59 Intake Total 592 1320 Output Total 650 1420 Balance -58 -100 Result Diagrams: 01/31/18 05:20 01/31/18 05:20 Phys Exam - Physical Examination HEENT: PERRLA, sclera anicteric Respiratory: no wheezing, no rales, no rhonchi, clear to auscultation bilateral Cardiovascular: RRR, no significant murmur, no rub no gallop Gastrointestinal: soft, non-tender, no distention, positive bowel sounds Musculoskeletal: no edema Dx/Plan (1) Abdominal pain Code(s): R10.9 - UNSPECIFIED ABDOMINAL PAIN Status: Acute (2) Abnormal CT of the abdomen Code(s): R93.5 - ABN FINDINGS ON DX IMAGING OF ABD REGIONS, INC RETROPERITON Status: Acute (3) 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 Too small for FNA. WBC coming down. Fever resolved. Current regimen appears to be working. Will not have cultures to help guide therapy. Will need prolonged course of IV abx (current regimen Vanc/Meropenem). PICC. (4) HTN (hypertension) Code(s): I10 - ESSENTIAL (PRIMARY) HYPERTENSION Status: Chronic Qualifiers: Hypertension type: essential hypertension Qualified Code(s): I10 - Essential (primary) hypertension Comment: Stable. Home meds. - Plan * Abdominal Pain- ? due to metastatic disease- he is still drinking the bowel prep for colonoscopy- SPEP pending * Splenic Abscess- continue Vancomycin and Meropenem * HTN- blood pressure is elevated- Continue Hydralazine as needed until he is able to tolerate p.o..
[2018-01-31 19:33] LABS: Vancomycin, Trough 16.3 ug/mL
[2018-01-31] MEDS: Tamsulosin HCl 0.4 MG CAP PO SCH (23:31)
[2018-01-31] MEDS: Sodium Chloride 0.9% 1,000 ML IV SCH (23:37)
[2018-02-01] MEDS: Morphine 2 MG/ML SYRINGE SLOW IVP PRN ×3 (02:35→13:48)
[2018-02-01] MEDS: MEROPENEM 1 GM/50 ML 1 GM in Premix Bag 1 BAG IVPB SCH ×3 (05:45→22:10)
[2018-02-01 07:32] LABS: Hemoglobin 11.8 g/dL (14.0-18.0); Mean Corpuscular HGB CONC 30.4 g/dL (32.0-36.0); Mean Corpuscular Hemoglobin 28.7 pg (27.0-31.0); Mean Corpuscular Volume 94.3 fL (78.0-98.0); Mean Platelet Volume 8.8 fL (7.4-10.4); Platelet Count 125 thou/uL (130-400); RBC Distribution Width 13.7 % (11.5-14.5); Red Blood Cell (RBC) Count 4.13 mill/uL (4.70-6.10); White Blood Cell (WBC) Count 18.2 thou/uL (4.8-10.8)
[2018-02-01 08:03] LABS: Band 2 % (5-11); Hypochromia SLIGHT = 6-15 cells (100X) (0-5/hpf); Lymphocytes 8 % (21-51); MDiff Complete? YES; Monocytes 22 % (0-10); Neutrophil 68 % (42-75); PLT Morphology Comment Appears Adequate; Polychromasia SLIGHT = 2-3 cells (100X) (0-2/hpf)
[2018-02-01] MEDS ORDERED: Ondansetron HCl/PF 4 MG/2 ML Vial IVP PRN ×2 (09:19→11:02)
[2018-02-01] MEDS ORDERED: Promethazine HCl 25 MG/ML VIAL SLOW IVP PRN (11:02)
[2018-02-01] MEDS ORDERED: Promethazine HCl 25 MG/ML VIAL IM PRN (11:02)
[2018-02-01] MEDS: Enoxaparin Sodium 40 MG/0.4 ML SYRINGE SC SCH (12:14)
[2018-02-01] MEDS: Famotidine/PF 20 mg/2ml Vial SLOW IVP SCH ×2 (12:14→21:37)
[2018-02-01] MEDS: Vancomycin HCl 1.5 GM in Sodium Chloride 0.9% 250 ML 300 ML IVPB SCH ×2 (12:14→20:02)
[2018-02-01] MEDS: Dextrose 5 %-0.45 % NaCl 1,000 ML IV SCH (12:21)
[2018-02-01] MEDS: hydrALAZINE 20 MG/ML VIAL SLOW IVP PRN (13:42)
--- NOTE | 2018-02-01 14:25 | PDOC.PN ---
- Subjective Encounter Start Date: 02/01/18 Encounter Start Time: 14:23 Mr. Calle was seen today in follow-up of abdominal pain and abnormal CT scan. He is back for the colonoscopy and endoscopy. He has the return of fairly severe abdominal pain. He describes it as a cramping, amd similar to what he experienced before. - Objective Resuscitation Status: Resuscitation Status FULL:Full Resuscitation MAR Reviewed: Yes Vital Signs & Weight: Vital Signs (12 hours) Temp Pulse Resp BP BP Pulse Ox 02/01/18 13:42 99 189/89 H 02/01/18 12:37 97.9 F 99 18 189/89 H 94 L 02/01/18 12:07 94 22 H 184/86 H 96 02/01/18 11:27 97.5 F L 96 20 180/86 H 97 02/01/18 08:00 98.6 F 94 24 H 184/85 H 95 Weight Admit Weight 209 lb Weight 209 lb I&O: 01/31/18 02/01/18 02/02/18 06:59 06:59 06:59 Intake Total 1320 2600 Output Total 1420 1300 Balance -100 1300 Result Diagrams: 02/01/18 07:15 01/31/18 05:20 Phys Exam - Physical Examination HEENT: PERRLA, sclera anicteric Respiratory: no wheezing, no rales, no rhonchi, clear to auscultation bilateral Cardiovascular: RRR, no significant murmur, no rub Gastrointestinal: soft, positive bowel sounds + diffuse tenderness, mildly distended Musculoskeletal: edema present trace pedal edema Dx/Plan (1) Abdominal pain Code(s): R10.9 - UNSPECIFIED ABDOMINAL PAIN Status: Acute (2) Abnormal CT of the abdomen Code(s): R93.5 - ABN FINDINGS ON DX IMAGING OF ABD REGIONS, INC RETROPERITON Status: Acute (3) 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 Too small for FNA. WBC coming down. Fever resolved. Current regimen appears to be working. Will not have cultures to help guide therapy. Will need prolonged course of IV abx (current regimen Vanc/Meropenem). PICC. (4) HTN (hypertension) Code(s): I10 - ESSENTIAL (PRIMARY) HYPERTENSION Status: Chronic Qualifiers: Hypertension type: essential hypertension Qualified Code(s): I10 - Essential (primary) hypertension Comment: Stable. Home meds. - Plan * Abdominal Pain- ? etiology- EGD and Colonoscopy were essentially negative with the exception of a small duodenal ulcer * Will give a trial of Carafate before meals and Bentyl prn, await further recommendations * He may need a short course of TPN if he is not able to tolerate p.o. * Splenic abscess- continue IV antibiotics ( Meropenem and Vancomycin) * HTN- blood pressure is elevated- will add a Catapres patch, and PRN hydralazine
[2018-02-01] MEDS ORDERED: PHENYLEPHRINE-NS 100 MCG/ML 10 ML SYRINGE ONE (14:31)
[2018-02-01] MEDS ORDERED: Succinylcholine Chloride 20 MG/ML 10 ml SYRINGE FS ONE (14:31)
[2018-02-01] MEDS ORDERED: Ondansetron PF 4 MG/2 ML Vial ONE (14:31)
[2018-02-01] MEDS ORDERED: PROPOFOL 200 MG/20 ML VIAL ONE (14:31)
[2018-02-01] MEDS ORDERED: Lidocaine 1% PF 5 ML VIAL ONE (14:31)
[2018-02-01] MEDS ORDERED: Dicyclomine 10 MG CAP PO PRN (14:31)
[2018-02-01] MEDS ORDERED: ePHEDrine/0.9% NaCl/PF SYRINGE 50 mg/10 ml ONE (14:31)
[2018-02-01] MEDS: Sucralfate 1 GM TAB PO SCH ×2 (16:08→21:38)
[2018-02-01] MEDS: cloNIDine 0.1mg/24 Hour PATCH TD SCH (16:08)
--- NOTE | 2018-02-01 17:30 | OP ---
DATE OF PROCEDURE: 02/01/2018. OPERATIVE PROCEDURE: Esophagogastroduodenoscopy with biopsy. PREOPERATIVE DIAGNOSES: Abdominal pain, abnormal CAT scan. POSTOPERATIVE DIAGNOSIS: Duodenal polyp with ulceration. PROCEDURE IN DETAIL: The patient was placed on his left lateral position and was given sedation by A nesthesia Department. A Pentax video gastroscope under direct vision was passed down the oropharynx, past the GE junction, into the stomach. The esophageal mucosa appeared normal. The patient has lalo e mild mucosal edema at the GE junction. Retroflexion failed to show any pathology in the fundus or cardia. There are few small hiatus hernia. Over the proximal gastric body, there was erythematous a nd edematous mucosa focal gastritis. gastric body, incisura angularis, antrum, no pathol ogy seen. The scope advanced into the duodenal bulb. He has an ulceration with a polyp. The polyp was biopsied. The descending duodenum, no pathology seen. The stomach was decompressed and the scop e removed. RECOMMENDATIONS: 1. Discontinue n.p.o. 2. Clear liquid diet. 3. Possible surgical consult for a laparoscopy.
[2018-02-01] MEDS: Morphine 4 MG/ML VIAL SLOW IVP PRN ×2 (17:36→22:09)
[2018-02-01] MEDS ORDERED: Sterile Water 10 ML VIAL IVP SCH (20:06)
[2018-02-01] MEDS ORDERED: Activase 2 MG VIAL CATH SCH (20:06)
[2018-02-01] MEDS: Tamsulosin HCl 0.4 MG CAP PO SCH (21:38)
[2018-02-02] MEDS: Morphine 4 MG/ML VIAL SLOW IVP PRN ×4 (02:53→19:07)
[2018-02-02] MEDS: MEROPENEM 1 GM/50 ML 1 GM in Premix Bag 1 BAG IVPB SCH ×3 (06:27→22:48)
[2018-02-02 07:10] LABS: Vancomycin, Trough 16.2 ug/mL
[2018-02-02] MEDS: Sucralfate 1 GM TAB PO SCH ×5 (09:36→21:08)
[2018-02-02] MEDS: Famotidine/PF 20 mg/2ml Vial SLOW IVP SCH ×2 (09:36→21:09)
[2018-02-02] MEDS: Enoxaparin Sodium 40 MG/0.4 ML SYRINGE SC SCH (09:36)
[2018-02-02] MEDS: Vancomycin HCl 1.5 GM in Sodium Chloride 0.9% 250 ML 300 ML IVPB SCH ×2 (09:36→20:02)
[2018-02-02] MEDS: Dextrose 5 %-0.45 % NaCl 1,000 ML IV SCH ×2 (09:37→19:53)
[2018-02-02] MEDS: Labetalol HCl 100 MG/20 ML VIAL SLOW IVP PRN ×2 (10:19→13:32)
--- NOTE | 2018-02-02 10:42 | PDOC.PN ---
- Subjective Encounter Start Date: 02/02/18 Encounter Start Time: 10:40 Mr. Calle was seen today in follow-up of abdominal pain and abnormal CT. He continues to have abdominal pain which is not completely relieved with Morphine. - Objective Resuscitation Status: Resuscitation Status FULL:Full Resuscitation MAR Reviewed: Yes Vital Signs & Weight: Vital Signs (12 hours) Temp Pulse Resp BP BP Pulse Ox 02/02/18 10:19 92 189/92 H 02/02/18 04:00 99.3 F 102 H 18 161/75 H 93 L 02/02/18 00:13 98.4 F 107 H 18 158/78 H 94 L Weight Admit Weight 209 lb Weight 209 lb I&O: 02/01/18 02/02/18 02/03/18 06:59 06:59 06:59 Intake Total 2600 2876 Output Total 1300 1050 Balance 1300 1826 Result Diagrams: 02/01/18 07:15 01/31/18 05:20 Phys Exam - Physical Examination HEENT: PERRLA Respiratory: no wheezing, no rales, no rhonchi, clear to auscultation bilateral Cardiovascular: RRR, no significant murmur, no rub Gastrointestinal: soft, positive bowel sounds + diffuse tenderness, no rebound or guarding, + mild distention Musculoskeletal: no edema Dx/Plan (1) Abdominal pain Code(s): R10.9 - UNSPECIFIED ABDOMINAL PAIN Status: Acute (2) Abnormal CT of the abdomen Code(s): R93.5 - ABN FINDINGS ON DX IMAGING OF ABD REGIONS, INC RETROPERITON Status: Acute (3) 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 Too small for FNA. WBC coming down. Fever resolved. Current regimen appears to be working. Will not have cultures to help guide therapy. Will need prolonged course of IV abx (current regimen Vanc/Meropenem). PICC. (4) HTN (hypertension) Code(s): I10 - ESSENTIAL (PRIMARY) HYPERTENSION Status: Chronic Qualifiers: Hypertension type: essential hypertension Qualified Code(s): I10 - Essential (primary) hypertension Comment: Stable. Home meds. - Plan * Abdominal Pain- ? etiology. He continues to have significant pain which is not well relieved with the current dose of Morphine- will increase the dose. It is noted that GI is recommending considering Surgical evaluation and possible exploratory lap * I also spoke with Dr. Hsieh, and he recommends proceeding with bone marrow biopsy. I also spoke with Dr. Hughes to notify him of the situation * HTN - blood pressure is elevated, but trending down- will continue Catapres patch. * Splenic Abscess- continue IV Vancomycin and Meropenem
[2018-02-02 11:20] LABS: INR-International Normal Ratio 1.2; PTT 50.3 SEC (22.9-36.1); Prothrombin Time 14.9 SEC (12.0-14.7)
--- NOTE | 2018-02-02 14:09 | PRG ---
DATE OF SERVICE: 01/31/2018 This is a cross coverage for Dr. Tyrone Miller. Mr. Drake Calle is a 67-year-old male with abdominal pain, abdominal CAT scan. The patient had abdominal CAT scan, which revealed possible mass in the distal transverse colon area and also multiple tiny lesions in the liver. The patient was set up to have colonoscopy today. He drank only half a bottle of GoLYTELY last night and every time he drank GoLYTELY, he started having abdominal pain. There is no nausea, no vomiting. The pain is cramping in nature and . I added some Dulcolax suppositories this morning and he had Dulcolax suppositories, but he has not had results with suppositories. I have encouraged him to drink the GoLYTELY as much as possible. He also was given 2 Dulcolax tablets. I saw him multiple times throughout the day. However, in spite of Dulcolax suppositories and Dulcolax tablets and GoLYTELY, he had only 1 soft stool late in the afternoon. The patient has cramping pain every time he drank GoLYTELY. PHYSICAL EXAMINATION: GENERAL: Appears comfortable. He is in no distress. VITAL SIGNS: Stable. CARDIOVASCULAR SYSTEM: First and second heart sounds normal. LUNGS: Clear to auscultation. ABDOMEN: Soft and mildly distended. Abdomen is not firm or tight. He is nontender at the present time. PLAN: I have encouraged Mr. Calle to drink the GoLYTELY quickly so colonoscopy can be done today. However, he is drinking very, very slowly. I gave a cup of GoLYTELY this morning. When I came to see him at 12:00, he drank only half the cup of GoLYTELY. He has had more than 1/2 of the GoLYTELY. I encouraged him to drink the GoLYTELY as much as possible and maybe plan for colonoscopy and EGD tomorrow. MTDD
--- NOTE | 2018-02-02 18:03 | PRG ---
DATE OF SERVICE: 02/02/2018 SUBJECTIVE: Mr. Calle is still with the pain in the abdominal area. Seems to be a little bit more d iffuse today. He also has complained of difficulty in completing his voiding attempts. No headaches . No visual symptoms, sore throat, or vomiting. No diarrhea. OBJECTIVE: VITAL SIGNS: T-max 99.3, blood pressure 180/90, pulse 87, respirations 18, O2 sat 92%. GENERAL: Appears in some distress from the abdominal tenderness, particularly when he tries to get u p from bed. He is able to stand up. Still with some back pain. SKIN: Not changed. No lymphadenopathy. LUNGS: Symmetric clear breath sounds. HEART: S1, S2 regular rate. ABDOMEN: Moderately distended and diffuse tenderness, which is moderate. Question of rebound tender ness. The patient had an EGD and colonoscopy and none of those were diagnostic of any obvious malignancy. As previously noted, the CT of chest showed metastatic lesions throughout each lung and osseous struc tures of the chest, some fluid distention of the esophagus. There is a pathologic fracture with mild displacement in posterolateral aspect of the right 8th rib and innumerable ill-defined lytic lesions throughout the thoracic spine and ribs. LABORATORY DATA: His prostatic antigen was mildly elevated at 6.6 and latest sodium 140, creatinine 0.84. White cell count is 18.2, hemoglobin 11.8, platelets 125,000, 68% neutrophils, 2% bands, 8% ly mphocytes, and 22% monocytes. ASSESSMENT AND DISCUSSION: History of benign prostatic hyperplasia, acute onset of fever, left upper quadrant pain, splenic lesions with improvement in white cell count and pain with antimicrobial ther apy and now recrudescence of pain in the more diffuse abdominal location, associated with lesions in the lung and thoracic lumbar spine, suggestive of metastatic disease. Main concern is with a solid m alignancy with metastases versus a lymphoma or less likely myeloproliferative disorder. Bone marrow exam or another approach would be a bone biopsy of the involved areas for pathology. Regarding the s plenic lesions, those could represent metastatic lesions rather than abscesses. It could not be biop sied previously because of the size. At one point, we will have to consider discontinuing all antimi crobial therapy.
--- NOTE | 2018-02-02 18:10 | PRG ---
DATE OF SERVICE: 02/02/2018 SUBJECTIVE: Dr. Cha was able to take the patient for EGD and colonoscopy yesterday. The colon oscopy did not show any evidence of any mass lesion. On the EGD, he had some gastritis as well as a duodenal polyp with ulceration in the bulb. This was biopsied and pathology is still pending on this . However, per Dr. Cha, it did not appear to have a malignant appearance. The patient continu es to have generalized abdominal pain, worse with oral intake. He is tolerating liquids. It appears the plan is for a bone marrow biopsy in the next day or two. OBJECTIVE: VITAL SIGNS: Temperature 99.3, pulse 87, blood pressure 181/90, 93% oxygen saturation on 2 liters na grabiel cannula. GENERAL: No acute distress. HEART: Regular rate and rhythm. LUNGS: Clear to auscultation bilaterally. ABDOMEN: Bowel sounds are present, but hypoactive. The abdomen is nondistended. He is tender to pa lpation throughout the abdomen, but no guarding or rebound tenderness. EXTREMITIES: No peripheral edema. LABORATORY STUDIES: Sodium 140, potassium 3.7, BUN 14, creatinine 0.84. INR is 1.2. WBC 18.2, hemo globin 11.8, platelets 125. ASSESSMENT AND PLAN: 1. 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 2. Generalized abdominal pain. 3. Duodenal polyp with ulceration, awaiting pathology results. The patient really did not have any evidence of primary gastrointestinal malignancy on EGD and colono scopy from yesterday. We are awaiting pathology on the duodenal polyp, but endoscopically, this evid ently appeared benign. Note also the normal CEA level. No further gastrointestinal endoscopic mell p is planned. We would defer to Oncology and Surgical recommendations in terms of further search for primary malignancy. I would have the patient on a daily proton pump inhibitor given this duodenal ulcer. GI will follow at a distance, but please feel free to call back anytime with questions or concerns.
[2018-02-02] MEDS: Tamsulosin HCl 0.4 MG CAP PO SCH (21:08)
[2018-02-03] MEDS: Morphine 4 MG/ML VIAL SLOW IVP PRN ×2 (01:29→17:19)
--- NOTE | 2018-02-03 02:30 | HP ---
HISTORY OF PRESENT ILLNESS: Mr. Drake Calle is a 67-year-old from [place], presents with abdominal pain. He has had two CAT scans of abdomen and pelvis in [place], demonstrating diffuse metastases most likely right eighth rib associated with pathological fracture, left lower lobe nodules x2, pulm onary nodule within the left lobe 1.1 cm. This is suspicious for metastatic disease and subtle liver lesions right lobe and left lobe, 8 mm and 1.1 cm in the left lobe, 1 cm. There are diffuse lesions throughout the spleen with normal adrenal glands, pancreas, and kidneys. The patient had a CAT scan on 01/29/2018 and then another CAT scan of abdomen and pelvis with p.o. and IV contrast in late Dec in [place]. CEA levels have been normal. PSA has been 6. CAT scan of abdomen and pelvis wi th p.o. and IV contrast on 01/15/2018, revealed the same spleen densities. Metastatic findings throu ghout the skeleton L5 vertebral body, L2 vertebral body, L1 multiple lower thoracic verte brae. He has been seen in the hospital with Dr. Hsieh; AMBERLY Montoya; Dr. Miller, he has had upper and lower endoscopies by Dr. Cha both of which did not reveal anything, fissures or pain. Gloria ent has severe abdominal pain. White count has been 16,000, 20,000, 18,000 in the last three days. Hemoglobin 11, bilirubin slightly elevated at 1.8. PSA 6.6. CEA 0.65. CAT scan of the chest dedica william 01/31/2018, revealed metastatic lesions throughout each lung and osseous structure of the chest. ALLERGIES: PENICILLIN. TOBACCO: None for more than 15 years. PAST MEDICAL HISTORY: Hypertension, BPH. SOCIAL HISTORY: He occasionally smokes cigar. He lives at home alone. MEDICATIONS: Flomax 0.4 mg a day, tramadol. REVIEW OF SYSTEMS: Noncontributory otherwise. PHYSICAL EXAMINATIONS: VITAL SIGNS: 5 feet, 209 pounds, 30 BMI, 181/90, heart rate 87. HEAD, EYES, EARS, NOSE, AND THROAT: Unremarkable. LUNGS: Clear to auscultation. CARDIAC: Regular rate and rhythm without murmur or gallop. ABDOMEN: Tender diffusely with guarding. EXTREMITIES: Unremarkable. ASSESSMENT AND PLAN: Elevated white count, tender abdomen. X-rays unrevealing except for the above findings. We cannot explain his abdominal pain. We would recommend laparoscopy tomorrow. Risks and benefits explained. He consents.
[2018-02-03] MEDS ORDERED: Morphine 4 MG/ML VIAL IV SCH (04:50)
[2018-02-03] MEDS: MEROPENEM 1 GM/50 ML 1 GM in Premix Bag 1 BAG IVPB SCH ×3 (05:00→22:23)
[2018-02-03] MEDS ORDERED: Fentanyl 250 MCG/5 ML VIAL ONE (07:23)
[2018-02-03] MEDS ORDERED: Bupivacaine HCl 0.5%/Epinephrine 1:200,000/PF 30 ml Vial ONE (08:27)
[2018-02-03] MEDS: Vancomycin HCl 1.5 GM in Sodium Chloride 0.9% 250 ML 300 ML IVPB SCH ×2 (10:09→19:49)
[2018-02-03] MEDS: Sucralfate 1 GM TAB PO SCH ×4 (10:09→21:25)
[2018-02-03] MEDS: Enoxaparin Sodium 40 MG/0.4 ML SYRINGE SC SCH (10:10)
[2018-02-03] MEDS: Famotidine/PF 20 mg/2ml Vial SLOW IVP SCH ×2 (10:10→21:23)
--- NOTE | 2018-02-03 10:10 | OP ---
DATE OF PROCEDURE: 02/01/2018 PROCEDURE: Colonoscopy. PREOPERATIVE DIAGNOSIS: A 67-year-old male with abdominal pain, abdominal CAT scan showing a transverse colon mass. The patient underwent coloscopy. POSTOPERATIVE DIAGNOSES: No transverse colon mass done, the exam was done to the cecum, no pathology seen. However, the prep was not satisfactory. Retained stool in the colon, aside from the rectum, all the way to the cecum. However, the exam is reasonably good and I do not see any mass lesion in t he colon. PROCEDURE IN DETAIL: The patient was placed on his left lateral position and was given sedation by A nesthesia Department. A rectal exam was done before the scope was advanced into the rectum. No lesi on felt on rectal exam, but dark colored stool was seen on exam finger. A Pentax video colonoscope w as introduced into the rectum. There was a large amount of stool coating the mucosa, but no solid st ool seen. Water was irrigated and washed out extensively. Quite a bit of time was spent in the colo n, almost 5 hour. This was done because of the stool not able to clean out the patient properly. I was able to reach the cecum without difficulty. Again, water was irrigated and washed out and cleane d out right colon. pathology in the cecum or the right colon. The scope was carefully withdra wn and water irrigates over the colon and washed out. pathology in the transverse colon. The scope was advanced back one more time to cecum and were carefully withdrawn again. Did not see any m ass lesion in right colon, also transverse colon. The descending colon, sigmoid colon and rectum, no pathology seen. ENDOSCOPIC IMPRESSION: No mass lesions seen at endoscopy.
[2018-02-03] MEDS ORDERED: hydrALAZINE 20 MG/ML VIAL ONE (10:37)
--- NOTE | 2018-02-03 11:10 | OP ---
DATE OF PROCEDURE: 02/03/2018 PREOPERATIVE DIAGNOSES: Diffuse osseous and rib metastasis, abdominal pain, leukocytosis. POSTOPERATIVE DIAGNOSES: Diffuse osseous and rib metastasis, abdominal pain, leukocytosis. PROCEDURE: Diagnostic laparoscopy, laparoscopic evacuation of perisplenic subdiaphragmatic yellow fl uid sent for culture and cytology. Laparoscopic biopsy of peritoneal implants. Laparoscopic left lo be of the liver, biopsy wedge for permanent sections. Photographs taken in chart. SURGEON: Dr. Gustavo Sepulveda ANESTHESIA: General. Local 0.5% Marcaine with epinephrine 30 mL. PROCEDURE IN DETAIL: The patient was taken to the operating room where under general anesthesia, abd omen was prepared with ChloraPrep, draped in routine fashion. Left lateral subcostal incision made a nd pneumoperitoneum to 15 mmHg obtained with a Veress needle and a 5 mm port placed. Remaining ports placed under laparoscopic visualization. In the left lower quadrant lateral incision made and 11.1 mm port placed. Left mid lateral abdominal incision made and a 5 port placed. Abdominal cavity was a small volume. There was an inflammatory process in the left upper quadrant with omentum taken down from the abdominal wall bluntly and perisplenic fluid, yellow serous in nature, sent for culture and cytology. A small whitish implants on the peritoneal cavity multiple, which were biopsied. There w ere multiple irregularities over the surface of the liver and a sample taken from the left lobe with a wedge resection, incised with scissors, resecting it, submitted to pathology. Gained hemostasis wi th the cautery. Irrigant and pneumoperitoneum evacuated. All this instruments removed and all skin incisions approximated with interrupted subdermal 4-0 Monocryl and DermaGlue applied.
[2018-02-03] MEDS ORDERED: Sodium Bicarbonate 2.5 MEQ/5 ML VIAL ONE (11:28)
[2018-02-03] MEDS ORDERED: PROPOFOL 200 MG/20 ML VIAL ONE (11:49)
[2018-02-03] MEDS ORDERED: Dexamethasone 20 MG/5 ML VIAL ONE (11:49)
[2018-02-03] MEDS ORDERED: Lidocaine 1% PF 5 ML VIAL ONE (11:49)
[2018-02-03] MEDS ORDERED: PHENYLEPHRINE-NS 100 MCG/ML 10 ML SYRINGE ONE (11:49)
[2018-02-03] MEDS ORDERED: Ondansetron PF 4 MG/2 ML Vial ONE (11:49)
[2018-02-03] MEDS ORDERED: Succinylcholine Chloride 20 MG/ML 10 ml SYRINGE FS ONE (11:49)
[2018-02-03] MEDS ORDERED: Ketorolac Tromethamine 30 MG/ML VIAL ONE (11:49)
[2018-02-03] MEDS ORDERED: Glycopyrrolate 0.2 MG/ML 5 ML SYRINGE ONE (11:49)
[2018-02-03] MEDS ORDERED: ePHEDrine/0.9% NaCl/PF SYRINGE 50 mg/10 ml ONE (11:49)
[2018-02-03] MEDS ORDERED: traMADol HCl 50 MG TAB PO PRN (12:52)
[2018-02-03 13:07] LABS: Mean Corpuscular HGB CONC 31.1 g/dL (32.0-36.0); Mean Corpuscular Hemoglobin 28.7 pg (27.0-31.0); Mean Corpuscular Volume 92.2 fL (78.0-98.0); Mean Platelet Volume 9.4 fL (7.4-10.4); Platelet Count 123 thou/uL (130-400); RBC Distribution Width 13.8 % (11.5-14.5); Red Blood Cell (RBC) Count 3.83 mill/uL (4.70-6.10); White Blood Cell (WBC) Count 20.8 thou/uL (4.8-10.8)
[2018-02-03 13:25] LABS: Band 8 % (5-11); Lymphocytes 5 % (21-51); MDiff Complete? YES; Metamyelocyte 2 % (0-0); Monocytes 20 % (0-10); Myelocyte 1 % (0-0); Neutrophil 64 % (42-75)
--- NOTE | 2018-02-03 14:12 | PDOC.PN ---
- Subjective Encounter Start Date: 02/03/18 Encounter Start Time: 14:11 Mr Calle was seen today in follow-up of Abdominal pain and Abnormal CT scan. He has returned from the Exploratory Lap, and Bone Marrow biopsy. He says the abdominal pain is better since the Exploratory Lap, and is now " manageable and rates it a 5/10). He wants to try something to eat. - Objective Resuscitation Status: Resuscitation Status FULL:Full Resuscitation MAR Reviewed: Yes Vital Signs & Weight: Vital Signs (12 hours) Temp Pulse Resp BP Pulse Ox 02/03/18 13:25 97.8 F 98 18 163/87 H 95 02/03/18 12:55 98.0 F 92 18 174/89 H 97 02/03/18 12:25 98.0 F 91 18 173/90 H 97 02/03/18 11:55 97.8 F 94 20 173/91 H 95 02/03/18 03:10 99.4 F 86 16 143/85 H 97 Weight Admit Weight 209 lb Weight 209 lb I&O: 02/02/18 02/03/18 02/04/18 06:59 06:59 06:59 Intake Total 2876 210 Output Total 1050 700 Balance 1826 -490 Result Diagrams: 02/03/18 12:26 01/31/18 05:20 Phys Exam - Physical Examination HEENT: PERRLA Respiratory: no wheezing, no rales, no rhonchi, clear to auscultation bilateral Cardiovascular: RRR, no significant murmur, no rub no gallop, Gastrointestinal: soft, non-tender, no distention, positive bowel sounds Musculoskeletal: edema present tracepedal edema Psychiatric: normal affect, A&O x 3 Dx/Plan (1) Abdominal pain Code(s): R10.9 - UNSPECIFIED ABDOMINAL PAIN Status: Acute (2) Abnormal CT of the abdomen Code(s): R93.5 - ABN FINDINGS ON DX IMAGING OF ABD REGIONS, INC RETROPERITON Status: Acute (3) 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 Too small for FNA. WBC coming down. Fever resolved. Current regimen appears to be working. Will not have cultures to help guide therapy. Will need prolonged course of IV abx (current regimen Vanc/Meropenem). PICC. (4) HTN (hypertension) Code(s): I10 - ESSENTIAL (PRIMARY) HYPERTENSION Status: Chronic Qualifiers: Hypertension type: essential hypertension Qualified Code(s): I10 - Essential (primary) hypertension Comment: Stable. Home meds. - Plan * Abdominal Pain- . Op- note noted. Pathology results are pending from the peritoneal implant, and wedge resection from the liver. * HTN- blood pressure is still a bit elevated- will add Amlodipine, and consider discontinuing Catapres patch * Splenic Abscess- it appears that the area in the spleen may a focus of metastatic disease, and not infectious. There is consideration by Dr. Hsieh to discontinue antibiotics- will defer to ID * Ambulate
--- NOTE | 2018-02-03 14:42 | CT ---
CT GUIDED PERCUTANEOUS BONE MARROW BIOPSY AND ATTEMPTED BONE MARROW ASPIRATION: Date: 02-03-18 History: Extensive osseous metastatic lesions as well as splenic lesions. Technique: The procedure including risks and complications were explained to the patient and informed consent wa s obtained. The patient was placed on the CT scan table in the prone position. Limited noncontrast CT scan was obtained through the iliac bones with grid localizer in place. An area overlying the right iliac bone was marked and the area of meticulously prepped and draped in the usual sterile fashion. Skin subcutaneous tissues were infiltrated with buffered 1% Lidocaine for local anesthesia. Small skin incision was made. An 11 gauge biopsy needle was then advanced utilizing a drill just through the cortex of the right il iac bone. However, several attempts at bone marrow was unable to be aspirated. Three axial noncontras t CT images were obtained to confirm placement within the iliac bone which confirmed the needle throu gh the cortex but again, no bone marrow aspirate was able to be obtained. As a result, an approximate ly 2 cm length bone biopsy was obtained. The needle was again replaced and placed just through the cortex of the right iliac bone and aspirati on was again tempted, but again, no bone marrow was able to be aspirated. Needle was removed. Hemosta sis was achieved with direct pressure. Dry sterile dressing was placed. Patient tolerated the procedu re well and without immediate complication. IMPRESSION: Technically successful CT guided bone marrow biopsy of the right iliac bone. Bone marrow aspirate was unable to be obtained after two separate attempts. POS: JAMES
[2018-02-03 15:21] LABS: A/G Ratio 0.7 (0.7-1.7); Albumin 2.3 g/dL (2.9-4.4); Alpha 1 0.3 g/dL (0.0-0.4); Alpha 2 0.9 g/dL (0.4-1.0); Beta 0.8 g/dL (0.7-1.3); Globulin, Total 3.1 g/dL (2.2-3.9); M-Spike Not Observed g/dL (Not Observed)
[2018-02-03] MEDS: Tamsulosin HCl 0.4 MG CAP PO SCH (21:25)
[2018-02-03] MEDS: Dextrose 5 %-0.45 % NaCl 1,000 ML IV SCH (22:23)
[2018-02-04] MEDS: Morphine 4 MG/ML VIAL SLOW IVP PRN ×5 (01:36→21:59)
[2018-02-04] MEDS: MEROPENEM 1 GM/50 ML 1 GM in Premix Bag 1 BAG IVPB SCH ×3 (05:19→21:50)
[2018-02-04 07:08] LABS: Band 14 % (5-11); Hemoglobin 10.7 g/dL (14.0-18.0); Lymphocytes 11 % (21-51); MDiff Complete? YES; Mean Corpuscular HGB CONC 32.1 g/dL (32.0-36.0); Mean Corpuscular Hemoglobin 29.5 pg (27.0-31.0); Mean Platelet Volume 9.2 fL (7.4-10.4); Metamyelocyte 2 % (0-0); Monocytes 27 % (0-10); Neutrophil 46 % (42-75); PLT Morphology Comment Appears Adequate; Platelet Count 131 thou/uL (130-400); RBC Distribution Width 13.7 % (11.5-14.5); Red Blood Cell (RBC) Count 3.62 mill/uL (4.70-6.10); White Blood Cell (WBC) Count 26.5 thou/uL (4.8-10.8)
[2018-02-04] MEDS: Famotidine/PF 20 mg/2ml Vial SLOW IVP SCH ×2 (07:44→21:50)
[2018-02-04] MEDS: Vancomycin HCl 1.5 GM in Sodium Chloride 0.9% 250 ML 300 ML IVPB SCH ×2 (07:46→19:23)
[2018-02-04] MEDS: Sucralfate 1 GM TAB PO SCH ×4 (07:46→21:49)
[2018-02-04] MEDS: Amlodipine 5 MG TAB PO SCH (07:49)
[2018-02-04] MEDS: Enoxaparin Sodium 40 MG/0.4 ML SYRINGE SC SCH (10:52)
--- NOTE | 2018-02-04 13:05 | PDOC.PN ---
- Subjective Encounter Start Date: 02/04/18 Encounter Start Time: 13:03 Mr. Calle was seen today in follow-up of Abdominal pain and abnormal CT scan. He says he is hurting pretty bad today. He says the pain is slightly different from what he experienced before. He denies any nausea. - Objective Resuscitation Status: Resuscitation Status FULL:Full Resuscitation MAR Reviewed: Yes Vital Signs & Weight: Vital Signs (12 hours) Temp Pulse Pulse Resp BP BP BP 02/04/18 10:08 91 168/80 H 02/04/18 10:00 87 144/87 H 02/04/18 08:00 02/04/18 07:49 88 186/84 H 02/04/18 07:37 97.6 F 88 18 186/84 H Pulse Ox 02/04/18 10:08 02/04/18 10:00 02/04/18 08:00 96 02/04/18 07:49 02/04/18 07:37 96 Weight Admit Weight 209 lb Weight 209 lb I&O: 02/03/18 02/04/18 02/05/18 06:59 06:59 06:59 Intake Total 210 700 Output Total 700 650 Balance -490 50 Result Diagrams: 02/04/18 06:29 01/31/18 05:20 Phys Exam - Physical Examination HEENT: PERRLA Respiratory: no wheezing, no rales, no rhonchi, clear to auscultation bilateral Cardiovascular: RRR, no significant murmur, no rub no gallop Gastrointestinal: soft, positive bowel sounds + diffuse tenderness, no rebound orguarding Musculoskeletal: edema present + non-pitting edema bilaterally Dx/Plan (1) Abdominal pain Code(s): R10.9 - UNSPECIFIED ABDOMINAL PAIN Status: Acute (2) Abnormal CT of the abdomen Code(s): R93.5 - ABN FINDINGS ON DX IMAGING OF ABD REGIONS, INC RETROPERITON Status: Acute (3) 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 Too small for FNA. WBC coming down. Fever resolved. Current regimen appears to be working. Will not have cultures to help guide therapy. Will need prolonged course of IV abx (current regimen Vanc/Meropenem). PICC. (4) HTN (hypertension) Code(s): I10 - ESSENTIAL (PRIMARY) HYPERTENSION Status: Chronic Qualifiers: Hypertension type: essential hypertension Qualified Code(s): I10 - Essential (primary) hypertension Comment: Stable. Home meds. - Plan * Abdominal pain- unknown etiology- still awaiting the results of the biopsy- continue symptom management- will need to try transitioning him to oral pain medications soon. * HTN- blood pressure is still elevated- Amlodipine was just started today- will monitor, continue catapres patch. If continued elevation over the next few days then will titrate /adjust medications * ? Splenic abscess- continue IV Meropenem and Vancomycin pending biopsy results * Continue to encourage increased oral intake
[2018-02-04] MEDS ORDERED: HYDROcodone/Acetaminophen 5/325 mg Tablet PO PRN (13:07)
[2018-02-04] MEDS: Dextrose 5 %-0.45 % NaCl 1,000 ML IV SCH ×2 (16:30→21:52)
[2018-02-04] MEDS: Tamsulosin HCl 0.4 MG CAP PO SCH (21:49)
[2018-02-05] MEDS: Morphine 4 MG/ML VIAL SLOW IVP PRN ×2 (02:23→08:23)
[2018-02-05] MEDS: MEROPENEM 1 GM/50 ML 1 GM in Premix Bag 1 BAG IVPB SCH (06:06)
[2018-02-05 07:56] LABS: Vancomycin, Trough 18.5 ug/mL
[2018-02-05] MEDS: Sucralfate 1 GM TAB PO SCH ×4 (08:22→21:11)
[2018-02-05] MEDS: Famotidine/PF 20 mg/2ml Vial SLOW IVP SCH ×2 (08:22→20:35)
[2018-02-05] MEDS: Amlodipine 5 MG TAB PO SCH (08:22)
[2018-02-05] MEDS: Vancomycin HCl 1.5 GM in Sodium Chloride 0.9% 250 ML 300 ML IVPB SCH (08:23)
[2018-02-05] MEDS: Enoxaparin Sodium 40 MG/0.4 ML SYRINGE SC SCH (08:23)
[2018-02-05] MEDS: Acetaminophen 500 MG TAB PO PRN (09:47)
[2018-02-05] MEDS: traMADol HCl 50 MG TAB PO PRN (09:48)
--- NOTE | 2018-02-05 15:46 | PDOC.PN ---
- Subjective Encounter Start Date: 02/05/18 Encounter Start Time: 15:44 Mr. Calle was seen today in follow-up of abdominal pain. He continues to have some intermittent pain. His appetite has been marginal. - Objective Resuscitation Status: Resuscitation Status FULL:Full Resuscitation MAR Reviewed: Yes Vital Signs & Weight: Vital Signs (12 hours) Temp Pulse Resp BP Pulse Ox 02/05/18 12:26 97.7 F 82 14 135/70 97 02/05/18 08:22 97 02/05/18 08:00 97.8 F 92 24 H 168/86 H 98 Weight Admit Weight 209 lb Weight 209 lb I&O: 02/04/18 02/05/18 02/06/18 06:59 06:59 06:59 Intake Total 700 1920 878 Output Total 650 2750 Balance 50 -830 878 Result Diagrams: 02/04/18 06:29 01/31/18 05:20 Phys Exam - Physical Examination HEENT: PERRLA Respiratory: no wheezing, no rales, no rhonchi, clear to auscultation bilateral Cardiovascular: RRR, no significant murmur, no rub Gastrointestinal: soft, positive bowel sounds + mildly distended, + diffuse tenderness Musculoskeletal: no edema Dx/Plan (1) Abdominal pain Code(s): R10.9 - UNSPECIFIED ABDOMINAL PAIN Status: Acute (2) Abnormal CT of the abdomen Code(s): R93.5 - ABN FINDINGS ON DX IMAGING OF ABD REGIONS, INC RETROPERITON Status: Acute (3) 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 Too small for FNA. WBC coming down. Fever resolved. Current regimen appears to be working. Will not have cultures to help guide therapy. Will need prolonged course of IV abx (current regimen Vanc/Meropenem). PICC. (4) HTN (hypertension) Code(s): I10 - ESSENTIAL (PRIMARY) HYPERTENSION Status: Chronic Qualifiers: Hypertension type: essential hypertension Qualified Code(s): I10 - Essential (primary) hypertension Comment: Stable. Home meds. - Plan * Abdominal Pain- This is likely cancer related pain- His pathology results have returned. 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 I have informed the patient and his about the results * Splenic abscess vs. metastatic lesion- will continue antibiotics, due to rising WBC count, and peritoneal fluid growing a gram negative panchito- further recommendations from ID * HTN- blood pressure is overall in acceptable range * Continue to ambulate, and encourage oral intake..
[2018-02-05] MEDS: HYDROcodone/Acetaminophen 10/325 mg Tablet PO PRN (16:03)
[2018-02-05] MEDS: Dextrose 5 %-0.45 % NaCl 1,000 ML IV SCH (17:53)
[2018-02-05] MEDS: Tamsulosin HCl 0.4 MG CAP PO SCH (20:34)
[2018-02-05] MEDS: Morphine ER 15 MG TAB PO SCH (20:35)
--- NOTE | 2018-02-06 04:13 | PRG ---
DATE OF SERVICE: 02/05/2018 SUBJECTIVE: Mr. Calle is about the same, feeling intermittent pain. OBJECTIVE: VITAL SIGNS: He is afebrile. Other vital signs are not particularly remarkable. O2 sat 98% on nasal cannula. LUNGS: Symmetric air entry. HEART: S1, S2. ABDOMEN: Tenderness diffusely and spread out in the abdominal wall. LABORATORY DATA: White cell count is 26,000, hemoglobin 10.7, platelets 131 with 46% neutrophils and 14% bands. Creatinine 0.84, bilirubin 1.8, ALT 56, AST 33, alkaline phosphatase slightly elevated, albumin 2.8. We have pathology of the bone biopsy with a poorly differentiated malignant neoplasm, same likewise in the peritoneal implants and portion of the liver. ASSESSMENT AND DISCUSSION: History of benign prostatic hypertrophy, acute onset of fever and left upper quadrant pain with splenic lesions initially treated as abscesses, but due to the relapse patient has been readmitted. Now, there is diagnostic information to demonstrate the presence of metastatic undifferentiated malignancy in lungs, widespread metastasis in bone and liver as well as peritoneal implants. We will discontinue antimicrobial therapy at this point in time. PHIL
[2018-02-06] MEDS: Sucralfate 1 GM TAB PO SCH ×4 (08:17→20:42)
[2018-02-06] MEDS: Famotidine/PF 20 mg/2ml Vial SLOW IVP SCH ×2 (08:17→20:41)
[2018-02-06] MEDS: Amlodipine 5 MG TAB PO SCH (08:17)
[2018-02-06] MEDS: Enoxaparin Sodium 40 MG/0.4 ML SYRINGE SC SCH (08:17)
[2018-02-06] MEDS: Dextrose 5 %-0.45 % NaCl 1,000 ML IV SCH (12:36)
--- NOTE | 2018-02-06 14:44 | PDOC.PN ---
- Subjective Encounter Start Date: 02/06/18 Encounter Start Time: 07:20 Pt seen for followup re: abdo pain. denies chest pain, shortness of breath, fevers or chills. - Objective Resuscitation Status: Resuscitation Status FULL:Full Resuscitation MAR Reviewed: Yes Vital Signs & Weight: Vital Signs (12 hours) Temp Pulse Resp BP Pulse Ox 02/06/18 08:17 87 02/06/18 08:00 97.5 F L 87 16 175/91 H 97 Weight Admit Weight 209 lb Weight 209 lb I&O: 02/05/18 02/06/18 02/07/18 06:59 06:59 06:59 Intake Total 1920 2578 Output Total 2750 700 Balance -830 1878 Result Diagrams: 02/04/18 06:29 01/31/18 05:20 Additional Labs: Labs reviewed by me Phys Exam - Physical Examination Obese HEENT: moist MMs Neck: supple Respiratory: clear to auscultation bilateral Cardiovascular: RRR Gastrointestinal: soft Neurological: moves all 4 limbs Psychiatric: normal affect Skin: no rash Dx/Plan (1) Abdominal pain Code(s): R10.9 - UNSPECIFIED ABDOMINAL PAIN Status: Acute Comment: start PRN IV morphine (2) Metastatic cancer Code(s): C79.9 - SECONDARY MALIGNANT NEOPLASM OF UNSPECIFIED SITE Status: Acute Comment: primary unknown, await oncology opinion (3) BPH (benign prostatic hyperplasia) Code(s): N40.0 - BENIGN PROSTATIC HYPERPLASIA WITHOUT LOWER URINRY TRACT SYMP Status: Chronic Qualifiers: Lower urinary tract symptom presence: symptoms absent Qualified Code(s): N40.0 - Benign prostatic hyperplasia without lower urinary tract symptoms Comment: stable (4) HTN (hypertension) Code(s): I10 - ESSENTIAL (PRIMARY) HYPERTENSION Status: Chronic Qualifiers: Hypertension type: essential hypertension Qualified Code(s): I10 - Essential (primary) hypertension Comment: continue to monitor vital signs and titrate antihypertensives as needed (5) Splenic abscess Code(s): D73.3 - ABSCESS OF SPLEEN Status: Ruled-out Comment: Antibiotics have been discontinued - Plan * . Review of Systems - Review of Systems Constitutional: negative: fever, chills, sweats, weakness, malaise Cardiovascular: negative: chest pain, palpitations, orthopnea, paroxysmal nocturnal dyspnea, edema, light headedness Gastrointestinal: Abdominal Pain - Medications/Allergies Allergies/Adverse Reactions: Allergies Allergy/AdvReac Type Severity Reaction Status Date / Time penicillamine Allergy Verified 01/29/18 23:51 Penicillins Allergy Verified 01/29/18 23:51 Medications: Current Medications Acetaminophen (Tylenol) 1,000 mg PO Q6H PRN PRN Reason: Mild Pain (1-3) Last Admin: 02/05/18 09:47 Dose: 1,000 mg Hydrocodone Bitart/Acetaminophen ([place] 10/325) 1 tab PO Q4H PRN PRN Reason: Pain 4-6 Last Admin: 02/05/18 16:03 Dose: 1 tab Amlodipine Besylate (Norvasc) 5 mg PO DAILY [facility] Last Admin: 02/06/18 08:17 Dose: 5 mg Clonidine (Jdgynbri-Ndp-3 Patch) 0.1 mg TD Q7DAYS@1600 [facility] Last Admin: 02/01/18 16:08 Dose: 0.1 mg Dicyclomine HCl (Bentyl) 10 mg PO QID PRN PRN Reason: Abdominal Distention Enoxaparin Sodium (Lovenox) 40 mg SC 0900 [facility] Last Admin: 02/06/18 08:17 Dose: 40 mg Famotidine (Pepcid) 20 mg SLOW IVP Q12HR [facility] Last Admin: 02/06/18 08:17 Dose: 20 mg Hydralazine HCl (Apresoline) 10 mg SLOW IVP Q4H PRN PRN Reason: SBP Greater Than 180 Last Admin: 02/01/18 13:42 Dose: 10 mg Dextrose/Sodium Chloride (D5 1/2 Ns) 1,000 mls @ 50 mls/hr IV .Q20H [facility] Last Admin: 02/06/18 12:36 Dose: 1,000 mls Labetalol HCl (Normodyne) 20 mg SLOW IVP Q4H PRN PRN Reason: Systolic BP > 180 Last Admin: 02/02/18 13:32 Dose: 20 mg Miscellaneous Medication (Pharmacy To Dose) 1 each IVPB PRN PRN PRN Reason: Pharmacy to dose Morphine Sulfate (Ms Contin) 15 mg PO Q12HR [facility] Last Admin: 02/05/18 20:35 Dose: 15 mg Olmesartan (Benicar) 40 mg PO DAILY [facility] Last Admin: 02/06/18 08:17 Dose: 40 mg Ondansetron HCl (Zofran) 4 mg IVP Q6H PRN PRN Reason: Nausea/Vomiting Pantoprazole Sodium (Protonix) 40 mg PO DAILY [facility] Last Admin: 02/06/18 08:17 Dose: 40 mg Sodium Chloride (Flush - Normal Saline) 10 ml IVF Q12HR PRN PRN Reason: Saline Flush Last Admin: 02/05/18 20:35 Dose: 10 ml Sodium Chloride (Flush - Normal Saline) 10 ml IVF PRN PRN PRN Reason: Saline Flush Last Admin: 02/05/18 02:23 Dose: 10 ml Sucralfate (Carafate) 1 gm PO ACHS [facility] Last Admin: 02/06/18 12:38 Dose: 1 gm Tamsulosin HCl (Flomax) 0.8 mg PO HS [facility] Last Admin: 02/05/18 20:34 Dose: 0.8 mg Tramadol HCl (Ultram) 100 mg PO Q6H PRN PRN Reason: Severe Pain (7-10) Last Admin: 02/05/18 09:48 Dose: 100 mg
[2018-02-06] MEDS: Morphine ER 15 MG TAB PO SCH ×2 (15:29→20:41)
[2018-02-06 15:51] LABS: Band 12 % (5-11); Hemoglobin 10.2 g/dL (14.0-18.0); Lymphocytes 2 % (21-51); MDiff Complete? YES; Mean Corpuscular HGB CONC 30.7 g/dL (32.0-36.0); Mean Corpuscular Hemoglobin 28.8 pg (27.0-31.0); Mean Corpuscular Volume 93.7 fL (78.0-98.0); Mean Platelet Volume 10.3 fL (7.4-10.4); Metamyelocyte 3 % (0-0); Monocytes 10 % (0-10); Neutrophil 73 % (42-75); Platelet Count 124 thou/uL (130-400); RBC Distribution Width 13.7 % (11.5-14.5); Red Blood Cell (RBC) Count 3.53 mill/uL (4.70-6.10); White Blood Cell (WBC) Count 22.9 thou/uL (4.8-10.8)
[2018-02-06 15:52] LABS: PLT Morphology Comment Appears Decreased
[2018-02-06] MEDS: Morphine 4 MG/ML VIAL IV PRN (16:13)
[2018-02-06] MEDS: HYDROcodone/Acetaminophen 10/325 mg Tablet PO PRN (17:58)
[2018-02-06] MEDS: Tamsulosin HCl 0.4 MG CAP PO SCH (20:42)
[2018-02-06] MEDS: Acetaminophen 500 MG TAB PO PRN (20:43)
[2018-02-07] MEDS: Dextrose 5 %-0.45 % NaCl 1,000 ML IV SCH (05:59)
[2018-02-07] MEDS: Sucralfate 1 GM TAB PO SCH ×4 (08:11→20:29)
[2018-02-07] MEDS: Amlodipine 5 MG TAB PO SCH (08:11)
[2018-02-07] MEDS: Enoxaparin Sodium 40 MG/0.4 ML SYRINGE SC SCH (08:11)
[2018-02-07] MEDS: Morphine ER 15 MG TAB PO SCH ×2 (08:13→20:29)
[2018-02-07 09:28] LABS: Band 7 % (5-11); Eosinophils 1 % (0-10); Lymphocytes 11 % (21-51); MDiff Complete? YES; Mean Corpuscular HGB CONC 30.9 g/dL (32.0-36.0); Mean Corpuscular Hemoglobin 28.7 pg (27.0-31.0); Mean Corpuscular Volume 92.9 fL (78.0-98.0); Mean Platelet Volume 9.6 fL (7.4-10.4); Monocytes 22 % (0-10); Neutrophil 59 % (42-75); Nucleated RBC 1 % (0); Platelet Count 141 thou/uL (130-400); Red Blood Cell (RBC) Count 3.84 mill/uL (4.70-6.10); White Blood Cell (WBC) Count 25.1 thou/uL (4.8-10.8)
[2018-02-07 09:49] LABS: ALT (SGPT) 51 U/L (8-55); AST (SGOT) 41 U/L (5-34); Albumin 2.3 g/dL (3.4-4.8); Alkaline Phosphatase 178 U/L (40-150); BUN (Urea Nitrogen) 13 mg/dL (8.4-25.7); Bilirubin, Total 1.3 mg/dL (0.2-1.2); Calc. Creatinine Clearance 110 mL/min (70-130); Calcium 10.1 mg/dL (7.8-10.44); Carbon Dioxide 30 mmol/L (23-31); Chloride 102 mmol/L (98-107); Estimated GFR-MDRD 89; Globulin 3.4 g/dL (2.4-3.5); Glucose 103 mg/dL (80-115); Potassium 3.4 mmol/L (3.5-5.1); Protein, Total 5.7 g/dL (5.8-8.1); Sodium 141 mmol/L (136-145)
[2018-02-07 09:58] LABS: Anion Gap 12 mmol/L (10-20)
--- NOTE | 2018-02-07 11:06 | CT ---
BRAIN CT WITHOUT IV CONTRAST: Date: 02/07/18 HISTORY: 67-year-old male with history of altered mental status and confusion. FINDINGS: No focal mass or midline shift. No intra or extra-axial hemorrhage. Mild sinus mucosal changes. The m astoids are clear. IMPRESSION: Mild atrophy and chronic white matter ischemic change. No mass, bleed, or other acute process. Mild s inus mucosal disease. POS: [facility]
--- NOTE | 2018-02-07 11:27 | CT ---
CT ANGIOGRAM CHEST WITH 3D RENDERING: Date: 02/07/18 HISTORY: 67-year-old male with history of chest pain and shortness of breath, with concern for pulmonary embol ism. FINDINGS: Again noted are multiple pulmonary metastases, as well as extensive bone metastases involving the axi al skeleton and ribs. Bilateral pleural effusions, larger on the right side. Extensive ascites with s ome nodular increased density within the upper mesentery. Small hiatal hernia. IMPRESSION: No convincing CT evidence for acute pulmonary embolism. Evidence for pulmonary metastasis and extensi ve bone metastasis. Extensive ascites with some patchy nodular densities within the mesentery. Trace pericardial fluid. Small bilateral pleural effusions. Other findings as above. POS: [facility]
[2018-02-07] MEDS ORDERED: Potassium Chloride 20 MEQ TAB PO SCH (11:30)
[2018-02-07] MEDS: Famotidine/PF 20 mg/2ml Vial SLOW IVP SCH ×2 (11:43→20:29)
[2018-02-07] MEDS ORDERED: ALPRAZolam 0.5 MG TAB PO SCH (13:00)
--- NOTE | 2018-02-07 14:05 | PDOC.PN ---
- Subjective Encounter Start Date: 02/07/18 Encounter Start Time: 10:00 Pt seen for followup re: tachycardia. Denies chest pain, nausea or vomiting. Abdo pain better. - Objective Resuscitation Status: Resuscitation Status FULL:Full Resuscitation MAR Reviewed: Yes Vital Signs & Weight: Vital Signs (12 hours) Temp Pulse Resp BP BP Pulse Ox 02/07/18 12:00 98.6 F 110 H 24 H 106/59 L 95 02/07/18 09:44 116 H 96 02/07/18 08:11 155 H 138/86 02/07/18 08:00 95 02/07/18 07:30 97.8 F 153 H 20 138/86 95 Weight Admit Weight 209 lb Weight 209 lb I&O: 02/06/18 02/07/18 02/08/18 06:59 06:59 06:59 Intake Total 2578 1580 Output Total 700 875 Balance 1878 705 Result Diagrams: 02/07/18 08:58 02/07/18 08:58 Additional Labs: Labs reviewed by me EKG Reviewed by me: Yes Phys Exam - Physical Examination Obese HEENT: moist MMs Neck: supple Respiratory: clear to auscultation bilateral S1, S2, tachy, reg Gastrointestinal: soft Neurological: moves all 4 limbs Psychiatric: normal affect Dx/Plan (1) Sinus tachycardia Code(s): R00.0 - TACHYCARDIA, UNSPECIFIED Status: Acute Comment: etiology unclear. r/o PE with CTA. Check TSH. Check labs. If no improvement, transfer to telemetry. (2) Abdominal pain Code(s): R10.9 - UNSPECIFIED ABDOMINAL PAIN Status: Acute Comment: continue PRN IV morphine (3) Metastatic cancer Code(s): C79.9 - SECONDARY MALIGNANT NEOPLASM OF UNSPECIFIED SITE Status: Acute Comment: primary unknown (4) BPH (benign prostatic hyperplasia) Code(s): N40.0 - BENIGN PROSTATIC HYPERPLASIA WITHOUT LOWER URINRY TRACT SYMP Status: Chronic Qualifiers: Lower urinary tract symptom presence: symptoms absent Qualified Code(s): N40.0 - Benign prostatic hyperplasia without lower urinary tract symptoms Comment: stable (5) HTN (hypertension) Code(s): I10 - ESSENTIAL (PRIMARY) HYPERTENSION Status: Chronic Qualifiers: Hypertension type: essential hypertension Qualified Code(s): I10 - Essential (primary) hypertension Comment: controlled (6) Splenic abscess Code(s): D73.3 - ABSCESS OF SPLEEN Status: Ruled-out - Plan plan discussed w/ family, out of bed/ambulate, DVT proph w/lovenox * . Pt has difficulty moving in as well as into and out of bed, will likely need a hospital bed at home arranged at the time of discharge. Review of Systems - Review of Systems Cardiovascular: negative: chest pain, palpitations, orthopnea, paroxysmal nocturnal dyspnea, edema, light headedness Gastrointestinal: Abdominal Pain. negative: Nausea, Vomiting, Diarrhea, Constipation, Melena, Hematochezia - Medications/Allergies Allergies/Adverse Reactions: Allergies Allergy/AdvReac Type Severity Reaction Status Date / Time penicillamine Allergy Verified 01/29/18 23:51 Penicillins Allergy Verified 01/29/18 23:51 Medications: Current Medications Acetaminophen (Tylenol) 1,000 mg PO Q6H PRN PRN Reason: Mild Pain (1-3) Last Admin: 02/06/18 20:43 Dose: 1,000 mg Hydrocodone Bitart/Acetaminophen ([place] 10/325) 1 tab PO Q4H PRN PRN Reason: Pain 4-6 Last Admin: 02/06/18 17:58 Dose: 1 tab Alprazolam (Xanax) 0.5 mg PO ONE [facility] Stop: 02/07/18 15:00 Last Admin: 02/07/18 13:21 Dose: 0.5 mg Amlodipine Besylate (Norvasc) 5 mg PO DAILY [facility] Last Admin: 02/07/18 08:11 Dose: 5 mg Clonidine (Xlxscczc-Vkj-0 Patch) 0.1 mg TD Q7DAYS@1600 [facility] Last Admin: 02/01/18 16:08 Dose: 0.1 mg Dicyclomine HCl (Bentyl) 10 mg PO QID PRN PRN Reason: Abdominal Distention Enoxaparin Sodium (Lovenox) 40 mg SC 0900 [facility] Last Admin: 02/07/18 08:11 Dose: 40 mg Famotidine (Pepcid) 20 mg SLOW IVP Q12HR [facility] Last Admin: 02/07/18 11:43 Dose: Not Given Hydralazine HCl (Apresoline) 10 mg SLOW IVP Q4H PRN PRN Reason: SBP Greater Than 180 Last Admin: 02/01/18 13:42 Dose: 10 mg Dextrose/Sodium Chloride (D5 1/2 Ns) 1,000 mls @ 50 mls/hr IV .Q20H [facility] Last Admin: 02/07/18 05:59 Dose: Not Given Labetalol HCl (Normodyne) 20 mg SLOW IVP Q4H PRN PRN Reason: Systolic BP > 180 Last Admin: 02/02/18 13:32 Dose: 20 mg Miscellaneous Medication (Pharmacy To Dose) 1 each IVPB PRN PRN PRN Reason: Pharmacy to dose Morphine Sulfate (Ms Contin) 15 mg PO Q12HR [facility] Last Admin: 02/07/18 08:13 Dose: 15 mg Morphine Sulfate (Morphine) 2 mg IV Q6H PRN PRN Reason: PAIN 3-10 Last Admin: 02/06/18 16:13 Dose: 2 mg Olmesartan (Benicar) 40 mg PO DAILY [facility] Last Admin: 02/07/18 08:11 Dose: 40 mg Ondansetron HCl (Zofran) 4 mg IVP Q6H PRN PRN Reason: Nausea/Vomiting Pantoprazole Sodium (Protonix) 40 mg PO DAILY [facility] Last Admin: 02/07/18 08:13 Dose: 40 mg Sodium Chloride (Flush - Normal Saline) 10 ml IVF Q12HR PRN PRN Reason: Saline Flush Last Admin: 02/05/18 20:35 Dose: 10 ml Sodium Chloride (Flush - Normal Saline) 10 ml IVF PRN PRN PRN Reason: Saline Flush Last Admin: 02/05/18 02:23 Dose: 10 ml Sucralfate (Carafate) 1 gm PO ACHS [facility] Last Admin: 02/07/18 11:44 Dose: 1 gm Tamsulosin HCl (Flomax) 0.8 mg PO HS [facility] Last Admin: 02/06/18 20:42 Dose: 0.8 mg Tramadol HCl (Ultram) 100 mg PO Q6H PRN PRN Reason: Severe Pain (7-10) Last Admin: 02/05/18 09:48 Dose: 100 mg
[2018-02-07] MEDS ORDERED: ISOVUE-370 76%-LOCM 1 ML ONE (15:11)
[2018-02-07] MEDS: Tamsulosin HCl 0.4 MG CAP PO SCH (20:31)
[2018-02-08] MEDS: Dextrose 5 %-0.45 % NaCl 1,000 ML IV SCH ×2 (01:55→06:17)
[2018-02-08] MEDS: HYDROcodone/Acetaminophen 10/325 mg Tablet PO PRN (02:58)
[2018-02-08] MEDS: Morphine 4 MG/ML VIAL IV PRN (03:26)
[2018-02-08] MEDS: Acetaminophen 500 MG TAB PO PRN (03:39)
[2018-02-08] MEDS: Sucralfate 1 GM TAB PO SCH ×4 (08:44→20:06)
[2018-02-08] MEDS: Amlodipine 5 MG TAB PO SCH (08:44)
[2018-02-08] MEDS: Enoxaparin Sodium 40 MG/0.4 ML SYRINGE SC SCH (08:45)
[2018-02-08] MEDS: Famotidine/PF 20 mg/2ml Vial SLOW IVP SCH ×2 (08:45→20:06)
[2018-02-08] MEDS ORDERED: Lorazepam 0.5 MG TAB PO SCH (10:00)
[2018-02-08] MEDS ORDERED: Bisacodyl 5 MG TAB PO SCH (10:00)
[2018-02-08] MEDS: traMADol HCl 50 MG TAB PO PRN ×2 (11:35→22:16)
--- NOTE | 2018-02-08 13:08 | MRI ---
MRI OF BRAIN WITH AND WITHOUT CONTRAST: Date: 02/08/18 INDICATION: History of confusion and metastatic disease. FINDINGS: There is no ventriculomegaly, mass effect, midline shift, or acute territorial infarction. No enhanci ng intra-axial mass. There is a focal right frontal scalp nodule, demonstrating fat signal, which may be related to a lipoma. No significant parenchymal signal abnormalities of the brain. IMPRESSION: No acute territorial infarction or evidence of intracranial metastatic disease. POS: [facility]
[2018-02-08] MEDS: Ketorolac Tromethamine 30 MG/ML VIAL IVP PRN (14:16)
[2018-02-08] MEDS ORDERED: Gadobenate Dimeglumine 529 MG/1 ML (20ML VIAL) ONE (15:19)
--- NOTE | 2018-02-08 16:45 | PDOC.PN ---
- Subjective Encounter Start Date: 02/08/18 Encounter Start Time: 07:00 Pt seen for followup re: abdo pain. Reports pain is better. No nausea or vomiting. - Objective Resuscitation Status: Resuscitation Status FULL:Full Resuscitation MAR Reviewed: Yes Vital Signs & Weight: Vital Signs (12 hours) Temp Pulse Resp BP BP Pulse Ox 02/08/18 08:44 98 139/75 02/08/18 08:40 97.9 F 98 20 139/75 96 02/08/18 08:25 99 22 H 146/101 H 02/08/18 08:00 96 Weight Admit Weight 209 lb Weight 209 lb I&O: 02/07/18 02/08/18 02/09/18 06:59 06:59 06:59 Intake Total 1580 710 Output Total 875 575 Balance 705 135 Result Diagrams: 02/07/18 08:58 02/07/18 08:58 Additional Labs: Labs reviewed by me Phys Exam - Physical Examination Constitutional: NAD HEENT: moist MMs Neck: supple Respiratory: clear to auscultation bilateral Cardiovascular: RRR Gastrointestinal: soft Neurological: moves all 4 limbs Psychiatric: normal affect Dx/Plan (1) Abdominal pain Code(s): R10.9 - UNSPECIFIED ABDOMINAL PAIN Status: Acute Comment: pt is having episodes of confusion, d/c morphine and start toradol (2) Acute encephalopathy Code(s): G93.40 - ENCEPHALOPATHY, UNSPECIFIED Status: Acute Comment: on and off episodes of confusion. Likely due to narcotic use. Check MRI to r/o intracranial mets. (3) Poor nutrition Code(s): E63.9 - NUTRITIONAL DEFICIENCY, UNSPECIFIED Status: Acute Comment: Had a lengthy discussion with . They would like to discuss with GI service re: PEG tube placement. (4) Metastatic cancer Code(s): C79.9 - SECONDARY MALIGNANT NEOPLASM OF UNSPECIFIED SITE Status: Acute Comment: primary unknown (5) BPH (benign prostatic hyperplasia) Code(s): N40.0 - BENIGN PROSTATIC HYPERPLASIA WITHOUT LOWER URINRY TRACT SYMP Status: Chronic Qualifiers: Lower urinary tract symptom presence: symptoms absent Qualified Code(s): N40.0 - Benign prostatic hyperplasia without lower urinary tract symptoms Comment: stable (6) HTN (hypertension) Code(s): I10 - ESSENTIAL (PRIMARY) HYPERTENSION Status: Chronic Qualifiers: Hypertension type: essential hypertension Qualified Code(s): I10 - Essential (primary) hypertension Comment: controlled (7) Sinus tachycardia Code(s): R00.0 - TACHYCARDIA, UNSPECIFIED Status: Resolved - Plan * . Review of Systems - Review of Systems Gastrointestinal: Abdominal Pain. negative: Nausea, Vomiting, Diarrhea, Constipation, Melena, Hematochezia Neurological: Confusion. negative: Weakness, Numbness, Incoordination, Change in Speech, Seizures - Medications/Allergies Allergies/Adverse Reactions: Allergies Allergy/AdvReac Type Severity Reaction Status Date / Time penicillamine Allergy Verified 01/29/18 23:51 Penicillins Allergy Verified 01/29/18 23:51 Medications: Current Medications Acetaminophen (Tylenol) 1,000 mg PO Q6H PRN PRN Reason: Mild Pain (1-3) Last Admin: 02/08/18 03:39 Dose: 1,000 mg Amlodipine Besylate (Norvasc) 5 mg PO DAILY [facility] Last Admin: 02/08/18 08:44 Dose: 5 mg Bisacodyl (Dulcolax) 10 mg PO DAILY [facility] Clonidine (Daxwzyvd-Jyz-2 Patch) 0.1 mg TD Q7DAYS@1600 [facility] Last Admin: 02/01/18 16:08 Dose: 0.1 mg Dicyclomine HCl (Bentyl) 10 mg PO QID PRN PRN Reason: Abdominal Distention Last Admin: 02/07/18 23:41 Dose: 10 mg Enoxaparin Sodium (Lovenox) 40 mg SC 0900 [facility] Last Admin: 02/08/18 08:45 Dose: 40 mg Famotidine (Pepcid) 20 mg SLOW IVP Q12HR [facility] Last Admin: 02/08/18 08:45 Dose: 20 mg Hydralazine HCl (Apresoline) 10 mg SLOW IVP Q4H PRN PRN Reason: SBP Greater Than 180 Last Admin: 02/01/18 13:42 Dose: 10 mg Dextrose/Sodium Chloride (D5 1/2 Ns) 1,000 mls @ 50 mls/hr IV .Q20H [facility] Last Admin: 02/08/18 06:17 Dose: 1,000 mls Ketorolac Tromethamine (Toradol) 15 mg IVP Q6H PRN PRN Reason: Pain Stop: 02/13/18 08:34 Last Admin: 02/08/18 14:16 Dose: 15 mg Labetalol HCl (Normodyne) 20 mg SLOW IVP Q4H PRN PRN Reason: Systolic BP > 180 Last Admin: 02/02/18 13:32 Dose: 20 mg Lorazepam (Ativan) 0.5 mg PO WILLCALL [facility] Last Admin: 02/08/18 10:29 Dose: 0.5 mg Miscellaneous Medication (Pharmacy To Dose) 1 each IVPB PRN PRN PRN Reason: Pharmacy to dose Olmesartan (Benicar) 40 mg PO DAILY [facility] Last Admin: 02/08/18 08:45 Dose: 40 mg Ondansetron HCl (Zofran) 4 mg IVP Q6H PRN PRN Reason: Nausea/Vomiting Pantoprazole Sodium (Protonix) 40 mg PO DAILY [facility] Last Admin: 02/08/18 08:46 Dose: 40 mg Sodium Chloride (Flush - Normal Saline) 10 ml IVF Q12HR PRN PRN Reason: Saline Flush Last Admin: 02/05/18 20:35 Dose: 10 ml Sodium Chloride (Flush - Normal Saline) 10 ml IVF PRN PRN PRN Reason: Saline Flush Last Admin: 02/05/18 02:23 Dose: 10 ml Sucralfate (Carafate) 1 gm PO ACHS [facility] Last Admin: 02/08/18 11:36 Dose: 1 gm Tamsulosin HCl (Flomax) 0.8 mg PO HS [facility] Last Admin: 02/07/18 20:31 Dose: 0.8 mg Tramadol HCl (Ultram) 100 mg PO Q6H PRN PRN Reason: Severe Pain (7-10) Last Admin: 02/08/18 11:35 Dose: 100 mg
[2018-02-08] MEDS: cloNIDine 0.1mg/24 Hour PATCH TD SCH (17:53)
[2018-02-08] MEDS: Tamsulosin HCl 0.4 MG CAP PO SCH (20:06)
--- NOTE | 2018-02-08 23:10 | PRG ---
DATE OF SERVICE: 02/08/2018 REASON FOR CONSULTATION: Malnutrition. SUBJECTIVE: The patient states that he has been unable to eat a whole lot over the last few days due to significantly decreased appetite. With his decrease in his appetite, his family has been concern ed about him maintaining adequate nutrition in light of his diagnosis of metastatic cancer from unkno wn primary. At the current time, it is unknown what treatment options are available to the patient w ith bone marrow biopsy is still pending at this time. Currently, he denies any inability to swallow and has been able to tolerate both solids and liquids well without difficulty. He denies any nausea, vomiting, fevers, chills, abdominal pain, dysphagia, odynophagia, or GI bleeding. OBJECTIVE: VITAL SIGNS: Temperature 98.4, pulse 96, blood pressure 148/65, respiratory rate 20, satting 95% on 2 liters nasal cannula. GENERAL: Patient is lying in bed in no acute distress, alert and oriented x4; however, sometimes his speech is unintelligible. CARDIOVASCULAR: Tachycardic rate, but regular rhythm. RESPIRATORY: Clear to auscultation bilaterally. ABDOMEN: Normoactive bowel sounds, soft. Tenderness to palpation in all abdominal quadrants. EXTREMITIES: No cyanosis, clubbing, or edema. LABORATORY DATA: CBC on 02/07/2018 showing a white blood cell count of 25.1, hemoglobin 11, hematocr it 35.7, platelets 141. Chemistry with a sodium of 141, potassium 3.4, chloride 102, CO2 of 30, BUN 13, creatinine 0.85, glucose 103. AST 41, ALT 51, alkaline phosphatase 178, total bilirubin 1.3, alb umin 2.3. IMAGING DATA: CT angiography performed on 02/07/2018 showed multiple pulmonary metastases as well as extensive bone metastases involving the axial skeleton and ribs. In the meanwhile, there was eviden ce of bilateral pleural effusions with the right side greater than the left. There was no convincing evidence for acute pulmonary embolism. There was also extensive ascites with some nodularity and in creased density within the upper mesentery. ASSESSMENT AND PLAN: The patient is a 67-year-old male with past medical history of metastatic disea se of an unknown primary cancer, BPH, and hypertension presenting to the hospital for further diagnos tic evaluation and now with poor appetite and possible malnutrition. Malnutrition: The patient has been recently diagnosed with extensive metastatic disease from an unkn own primary source with metastatic disease present in the liver, lungs, bone, and spleen with the ons et of this diagnosis. He has been having increased abdominal pain with tenderness to palpation on ph ysical exam today. With this increased abdominal pain, he has had decreased appetite and has been un able to maintain adequate nutrition per family. At this time, family is requesting a PEG tube evalua tion for Mr. Calle to further supplement nutritional purposes in light of his recent diagnosis of can cer and possible chemotherapy in the near future. 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 At this time, I would recommend more optimization of his di etary status so that what little foods are being ingested are high in calories and/or protein to main tain adequate nutrition. RECOMMENDATIONS: 1. We would consult dietary services/nutrition for optimization of his nutrition in light of diagnos is of metastatic disease. 2. Would hold off on PEG placement at this time secondary to extensive ascites and increased complic ation with PEG tube placement with this condition. We will continue to follow. Please call with any questions.
[2018-02-09] MEDS: Ketorolac Tromethamine 30 MG/ML VIAL IVP PRN ×2 (00:38→19:14)
[2018-02-09] MEDS: Dextrose 5 %-0.45 % NaCl 1,000 ML IV SCH ×2 (00:38→20:10)
[2018-02-09] MEDS: Famotidine/PF 20 mg/2ml Vial SLOW IVP SCH ×2 (09:22→20:10)
[2018-02-09] MEDS: Bisacodyl 5 MG TAB PO SCH (09:22)
[2018-02-09] MEDS: Sucralfate 1 GM TAB PO SCH ×4 (09:22→20:10)
[2018-02-09] MEDS: Amlodipine 5 MG TAB PO SCH (09:22)
[2018-02-09] MEDS: Enoxaparin Sodium 40 MG/0.4 ML SYRINGE SC SCH (09:22)
--- NOTE | 2018-02-09 10:18 | PDOC.PN ---
- Subjective Encounter Start Date: 02/09/18 Encounter Start Time: 10:00 -: old records requested/rev Pt seen and examined, chart reviewed in its entirety, this is my first visit with this patient. follow up for metastatic CA of unknown primarym, abd pain, N/V, moderate protein -calorie malnutrition, acute Pt says pain is better and controlled, no N/V. ate breakfast better than he has in the past few days. Dietary to see again today. as recommended an appetite stimulant. No F/C, no N/V/D/C, no CP or sOB, no cough. All systems reviewed and neg x as above - Objective Resuscitation Status: Resuscitation Status FULL:Full Resuscitation MAR Reviewed: Yes Vital Signs & Weight: Vital Signs (12 hours) Temp Pulse Resp BP Pulse Ox 02/09/18 09:22 86 02/09/18 08:00 97.7 F 86 20 150/69 H 99 02/09/18 04:30 162/83 H 02/09/18 01:28 95 Weight Admit Weight 209 lb Weight 209 lb I&O: 02/08/18 02/09/18 02/10/18 06:59 06:59 06:59 Intake Total 710 1920 150 Output Total 575 1075 Balance 135 845 150 Result Diagrams: 02/07/18 08:58 02/07/18 08:58 Radiology Reviewed by me: Yes EKG Reviewed by me: Yes Phys Exam - Physical Examination Constitutional: NAD HEENT: PERRLA, moist MMs, sclera anicteric, oral pharynx no lesions Neck: no nodes, no JVD, supple, full ROM Respiratory: no wheezing, no rales, no rhonchi, clear to auscultation bilateral Cardiovascular: RRR, no rub Gastrointestinal: soft, positive bowel sounds tenses and dsitended, + shifting dullness Musculoskeletal: pulses present, edema present 1+ to mid tibia Neurological: non-focal, normal sensation, moves all 4 limbs Lymphatic: no nodes Psychiatric: normal affect, A&O x 3 Skin: no rash, normal turgor, cap refill <2 seconds Dx/Plan (1) Abdominal pain Code(s): R10.9 - UNSPECIFIED ABDOMINAL PAIN Status: Acute Qualifiers: Abdominal location: generalized Qualified Code(s): R10.84 - Generalized abdominal pain Comment: due to ascites and mets. controlled (2) Acute encephalopathy Code(s): G93.40 - ENCEPHALOPATHY, UNSPECIFIED Status: Resolved Comment: on and off episodes of confusion. Likely due to narcotic use. MRi neg for CVA or mets (3) Metastatic cancer Code(s): C79.9 - SECONDARY MALIGNANT NEOPLASM OF UNSPECIFIED SITE Status: Acute Comment: primary unknown (4) Poor nutrition Code(s): E63.9 - NUTRITIONAL DEFICIENCY, UNSPECIFIED Status: Acute Comment: GI said no PEG due to Ascites and risk of complications, Dietary to see. add in Megace (5) Sinus tachycardia Code(s): R00.0 - TACHYCARDIA, UNSPECIFIED Status: Resolved (6) BPH (benign prostatic hyperplasia) Code(s): N40.0 - BENIGN PROSTATIC HYPERPLASIA WITHOUT LOWER URINRY TRACT SYMP Status: Chronic Qualifiers: Lower urinary tract symptom presence: symptoms absent Qualified Code(s): N40.0 - Benign prostatic hyperplasia without lower urinary tract symptoms Comment: stable (7) HTN (hypertension) Code(s): I10 - ESSENTIAL (PRIMARY) HYPERTENSION Status: Chronic Qualifiers: Hypertension type: essential hypertension Qualified Code(s): I10 - Essential (primary) hypertension Comment: controlled - Plan cont current plan of care, PT/OT, social welfare administrator, out of bed/ambulate * .
[2018-02-09] MEDS ORDERED: Megestrol Acetate 800 MG/20 ML UDCUP PO SCH (10:45)
[2018-02-09] MEDS: Tamsulosin HCl 0.4 MG CAP PO SCH (20:10)
--- NOTE | 2018-02-09 22:48 | PRG ---
DATE OF SERVICE: 02/09/2018 SUBJECTIVE: Mr. Calle still complains of early satiety and poor appetite, abdominal discomfort, come s and goes. He gets nauseated with oral intake. OBJECTIVE: VITAL SIGNS: Temperature 97.8, pulse 110, blood pressure 141/91, 97% oxygen saturation on room air. GENERAL: No acute distress. HEART: Regular rate and rhythm. LUNGS: Clear to auscultation bilaterally. ABDOMEN: Tense with ascites. Bowel sounds are hypoactive, but present, soft, mild tenderness to pal pation throughout, but no guarding, rebound tenderness. EXTREMITIES: No peripheral edema. LABORATORY STUDIES: WBC 25.1, hemoglobin 11.0, platelets 141. ASSESSMENT AND PLAN: 1. Diffuse metastatic disease, with poorly differentiated carcinoma. 2. Failure to thrive, secondary to diffuse metastatic disease. I agree with Dr. Summers' recommendations from yesterday. I would try to avoid placing any kind of ent eral feeding tube in this patient with diffuse metastatic disease and ascites which is likely maligna nt. I do not think that the placement of any feeding tube would increase his quality of life and venkat ht only hasten his demise cause suffering in the meantime. He does not really have any oropharyngeal dysphagia, so there is no contraindication to oral intake. If he is not going to meet nutritional r equirements orally, a better solution would be parenteral nutrition. GI will sign off, but please call back with questions or concerns.
[2018-02-10] MEDS: Megestrol Acetate 800 MG/20 ML UDCUP PO SCH (08:02)
[2018-02-10] MEDS: Sucralfate 1 GM TAB PO SCH ×4 (08:02→20:39)
[2018-02-10] MEDS: Bisacodyl 5 MG TAB PO SCH (08:03)
[2018-02-10] MEDS: Amlodipine 5 MG TAB PO SCH (08:03)
[2018-02-10] MEDS: Enoxaparin Sodium 40 MG/0.4 ML SYRINGE SC SCH (08:03)
[2018-02-10] MEDS: Famotidine/PF 20 mg/2ml Vial SLOW IVP SCH ×2 (08:04→20:39)
[2018-02-10] MEDS: traMADol HCl 50 MG TAB PO PRN (08:04)
[2018-02-10 10:11] LABS: Anion Gap 11 mmol/L (10-20); BUN (Urea Nitrogen) 14 mg/dL (8.4-25.7); Calc. Creatinine Clearance 91 mL/min (70-130); Calcium 10.1 mg/dL (7.8-10.44); Carbon Dioxide 29 mmol/L (23-31); Chloride 104 mmol/L (98-107); Estimated GFR-MDRD 72; Glucose 144 mg/dL (80-115); Sodium 141 mmol/L (136-145)
[2018-02-10 10:19] LABS: Hemoglobin 9.8 g/dL (14.0-18.0); Mean Corpuscular HGB CONC 30.9 g/dL (32.0-36.0); Mean Corpuscular Hemoglobin 28.4 pg (27.0-31.0); Mean Corpuscular Volume 91.9 fL (78.0-98.0); Mean Platelet Volume 9.3 fL (7.4-10.4); Platelet Count 141 thou/uL (130-400); RBC Distribution Width 14.4 % (11.5-14.5); Red Blood Cell (RBC) Count 3.46 mill/uL (4.70-6.10); White Blood Cell (WBC) Count 24.6 thou/uL (4.8-10.8)
[2018-02-10 11:02] LABS: Band 8 % (5-11); Lymphocytes 10 % (21-51); MDiff Complete? YES; Metamyelocyte 4 % (0-0); Monocytes 19 % (0-10); Myelocyte 3 % (0-0); Neutrophil 56 % (42-75); Nucleated RBC 1 % (0); Polychromasia SLIGHT = 2-3 cells (100X) (0-2/hpf)
--- NOTE | 2018-02-10 13:31 | PDOC.PN ---
- Subjective Encounter Start Date: 02/10/18 Encounter Start Time: 13:29 Subjective: pt remains confused and tachycardic -: care discussed w in detail.Want to be transferred to MD Velasquez -: Tried transfer but declined- updated - Objective Resuscitation Status: Resuscitation Status FULL:Full Resuscitation MAR Reviewed: Yes Vital Signs & Weight: Vital Signs (12 hours) Temp Pulse Resp BP BP Pulse Ox 02/10/18 11:30 98.0 F 96 18 132/69 95 02/10/18 08:12 98.0 F 107 H 24 H 145/83 H 95 02/10/18 08:03 107 H 145/83 H 02/10/18 08:00 98.0 F 107 H 24 H 145/83 H 95 02/10/18 04:29 97.9 F 117 H 20 189/101 H 91 L Weight Admit Weight 209 lb Weight 209 lb I&O: 02/09/18 02/10/18 02/11/18 06:59 06:59 06:59 Intake Total 1920 1740 Output Total 1075 400 Balance 845 1340 Result Diagrams: 02/10/18 09:20 02/10/18 09:20 Additional Labs: Microbiology 02/03/18 09:26 Peritoneal fluid Body Fluid Culture - Final Presumptive Lactobacillus sp. 01/16/18 09:57 Venous blood - Right Hand Blood Culture - Final NO GROWTH IN 5 DAYS 01/16/18 09:56 Venous blood - Right Arm Blood Culture - Final NO GROWTH IN 5 DAYS 01/15/18 21:43 Nasal swab Influenza Types A,B Direct EIA - Final 01/15/18 13:40 Venous blood - Left Arm Blood Culture - Final NO GROWTH IN 5 DAYS 01/15/18 13:20 Venous blood - Left Arm Blood Culture - Final NO GROWTH IN 5 DAYS Phys Exam - Physical Examination Constitutional: NAD chronically ill looking HEENT: PERRLA, moist MMs, sclera anicteric, oral pharynx no lesions Neck: no nodes, no JVD, supple, full ROM Respiratory: no wheezing, no rales, no rhonchi, clear to auscultation bilateral Cardiovascular: RRR, no significant murmur Gastrointestinal: soft, non-tender, no distention, positive bowel sounds Musculoskeletal: no edema, pulses present Neurological: non-focal, normal sensation, moves all 4 limbs Deviation from normal: confused Skin: no rash Dx/Plan (1) Acute encephalopathy Code(s): G93.40 - ENCEPHALOPATHY, UNSPECIFIED Status: Resolved Comment: on and off episodes of confusion. Likely due to narcotic use. MRi neg for CVA or mets (2) Metastatic cancer Code(s): C79.9 - SECONDARY MALIGNANT NEOPLASM OF UNSPECIFIED SITE Status: Acute Comment: primary unknown (3) Poor nutrition Code(s): E63.9 - NUTRITIONAL DEFICIENCY, UNSPECIFIED Status: Acute Comment: GI said no PEG due to Ascites and risk of complications, Dietary to see. add in Megace (4) Sinus tachycardia Code(s): R00.0 - TACHYCARDIA, UNSPECIFIED Status: Resolved (5) Hypokalemia Code(s): E87.6 - HYPOKALEMIA Status: Acute Comment: PO potassium (6) BPH (benign prostatic hyperplasia) Code(s): N40.0 - BENIGN PROSTATIC HYPERPLASIA WITHOUT LOWER URINRY TRACT SYMP Status: Chronic Qualifiers: Lower urinary tract symptom presence: symptoms absent Qualified Code(s): N40.0 - Benign prostatic hyperplasia without lower urinary tract symptoms Comment: stable (7) HTN (hypertension) Code(s): I10 - ESSENTIAL (PRIMARY) HYPERTENSION Status: Chronic Qualifiers: Hypertension type: essential hypertension Qualified Code(s): I10 - Essential (primary) hypertension Comment: controlled - Plan plan discussed w/ family, PT/OT, out of bed/ambulate, DVT proph w/SCDs MD velasquez refused lateral transfer.Will optimize care for DC home eventua -: start TPN.Daily labs. minimal PO intake. -: Replace and recheck lytes -: Pathology report sent to [place]-still pending -: HD stable.Cont D5 1/2 NS.cont amlodpine & ARB. * . Review of Systems - Review of Systems Other: can not be obtained due to confusion and somnolence.RN reports Poor appetite and minimal mobility - Medications/Allergies Allergies/Adverse Reactions: Allergies Allergy/AdvReac Type Severity Reaction Status Date / Time penicillamine Allergy Verified 01/29/18 23:51 Penicillins Allergy Verified 01/29/18 23:51 Medications: Current Medications Acetaminophen (Tylenol) 1,000 mg PO Q6H PRN PRN Reason: Mild Pain (1-3) Last Admin: 02/08/18 03:39 Dose: 1,000 mg Amlodipine Besylate (Norvasc) 5 mg PO DAILY [facility] Last Admin: 02/10/18 08:03 Dose: 5 mg Bisacodyl (Dulcolax) 10 mg PO DAILY [facility] Last Admin: 02/10/18 08:03 Dose: Not Given Clonidine (Jnaggpyn-Suj-1 Patch) 0.1 mg TD Q7DAYS@1600 [facility] Last Admin: 02/08/18 17:53 Dose: 0.1 mg Dicyclomine HCl (Bentyl) 10 mg PO QID PRN PRN Reason: Abdominal Distention Last Admin: 02/07/18 23:41 Dose: 10 mg Enoxaparin Sodium (Lovenox) 40 mg SC 0900 [facility] Last Admin: 02/10/18 08:03 Dose: 40 mg Famotidine (Pepcid) 20 mg SLOW IVP Q12HR [facility] Last Admin: 02/10/18 08:04 Dose: 20 mg Hydralazine HCl (Apresoline) 10 mg SLOW IVP Q4H PRN PRN Reason: SBP Greater Than 180 Last Admin: 02/01/18 13:42 Dose: 10 mg Dextrose/Sodium Chloride (D5 1/2 Ns) 1,000 mls @ 50 mls/hr IV .Q20H [facility] Last Admin: 02/09/18 20:10 Dose: 1,000 mls Ketorolac Tromethamine (Toradol) 15 mg IVP Q6H PRN PRN Reason: Pain Stop: 02/13/18 08:34 Last Admin: 02/09/18 19:14 Dose: 15 mg Labetalol HCl (Normodyne) 20 mg SLOW IVP Q4H PRN PRN Reason: Systolic BP > 180 Last Admin: 02/02/18 13:32 Dose: 20 mg Lorazepam (Ativan) 0.5 mg PO WILLCALL [facility] Last Admin: 02/08/18 10:29 Dose: 0.5 mg Megestrol Acetate (Megace) 800 mg PO DAILY [facility] Last Admin: 02/10/18 08:02 Dose: 800 mg Miscellaneous Medication (Pharmacy To Dose) 1 each IVPB PRN PRN PRN Reason: Pharmacy to dose Olmesartan (Benicar) 40 mg PO DAILY [facility] Last Admin: 02/10/18 08:02 Dose: 40 mg Ondansetron HCl (Zofran) 4 mg IVP Q6H PRN PRN Reason: Nausea/Vomiting Pantoprazole Sodium (Protonix) 40 mg PO DAILY [facility] Last Admin: 02/10/18 08:04 Dose: 40 mg Sodium Chloride (Flush - Normal Saline) 10 ml IVF Q12HR PRN PRN Reason: Saline Flush Last Admin: 02/09/18 20:12 Dose: 10 ml Sodium Chloride (Flush - Normal Saline) 10 ml IVF PRN PRN PRN Reason: Saline Flush Last Admin: 02/05/18 02:23 Dose: 10 ml Sucralfate (Carafate) 1 gm PO ACHS [facility] Last Admin: 02/10/18 11:19 Dose: 1 gm Tamsulosin HCl (Flomax) 0.8 mg PO HS [facility] Last Admin: 02/09/18 20:10 Dose: 0.8 mg Tramadol HCl (Ultram) 100 mg PO Q6H PRN PRN Reason: Severe Pain (7-10) Last Admin: 02/10/18 08:04 Dose: 100 mg
[2018-02-10 16:19] LABS: ALT (SGPT) 41 U/L (8-55); AST (SGOT) 53 U/L (5-34); Albumin 2.1 g/dL (3.4-4.8); Alkaline Phosphatase 196 U/L (40-150); Bilirubin, Direct 0.5 mg/dL (0.1-0.3); Protein, Total 5.4 g/dL (5.8-8.1)
[2018-02-10 16:51] LABS: Bilirubin Negative (Negative); Blood, Urine Negative (Negative); Clarity CLEAR (Clear); Glucose, Urine (Dipstick) Negative (Negative); Leukocyte Negative (Negative); Nitrite Negative (Negative); Protein, Urine (Dipstick) Negative (Neg-Trace); Specific Gravity, Urine 1.008 (1.002-1.036)
[2018-02-10 16:53] LABS: Bacteria/HPF None Seen HPF (None Seen); Hyaline Casts/LPF 0-3 HYALINE CAST LPF (0-3 Hyaline); Squamous Epithelial None Seen HPF (0-3); WBC/HPF 0-3 HPF (0-3)
[2018-02-10] MEDS: Dextrose 5 %-0.45 % NaCl 1,000 ML IV SCH (17:25)
[2018-02-10] MEDS: Ketorolac Tromethamine 30 MG/ML VIAL IVP PRN (19:25)
[2018-02-10] MEDS ORDERED: Potassium Chloride 20 MEQ in Premix Bag 1 BAG IVPB SCH (20:00)
[2018-02-10] MEDS: Tamsulosin HCl 0.4 MG CAP PO SCH (20:39)
[2018-02-10] MEDS ORDERED: SODIUM CHLORIDE 0.9% IV SCH (20:45)
[2018-02-10] MEDS ORDERED: POTASSIUM CHLORIDE IV SCH (20:45)
[2018-02-11 04:47] LABS: Anion Gap 9 mmol/L (10-20); BUN (Urea Nitrogen) 13 mg/dL (8.4-25.7); Calc. Creatinine Clearance 98 mL/min (70-130); Calcium 9.9 mg/dL (7.8-10.44); Carbon Dioxide 30 mmol/L (23-31); Chloride 107 mmol/L (98-107); Estimated GFR-MDRD 79; Glucose 118 mg/dL (80-115); Magnesium 1.8 mg/dL (1.6-2.6); Phosphorus 3.8 mg/dL (2.3-4.7); Potassium 3.1 mmol/L (3.5-5.1); Sodium 143 mmol/L (136-145)
[2018-02-11 05:58] LABS: Band 4 % (5-11); Eosinophils 1 % (0-10); Hemoglobin 9.5 g/dL (14.0-18.0); Lymphocytes 6 % (21-51); MDiff Complete? YES; Mean Corpuscular HGB CONC 30.8 g/dL (32.0-36.0); Mean Corpuscular Hemoglobin 28.5 pg (27.0-31.0); Mean Corpuscular Volume 92.5 fL (78.0-98.0); Mean Platelet Volume 9.2 fL (7.4-10.4); Metamyelocyte 2 % (0-0); Monocytes 35 % (0-10); Myelocyte 1 % (0-0); Neutrophil 51 % (42-75); Platelet Count 137 thou/uL (130-400); RBC Distribution Width 14.7 % (11.5-14.5); Red Blood Cell (RBC) Count 3.35 mill/uL (4.70-6.10); White Blood Cell (WBC) Count 23.7 thou/uL (4.8-10.8)
[2018-02-11] MEDS: traMADol HCl 50 MG TAB PO PRN (08:22)
[2018-02-11] MEDS: Famotidine/PF 20 mg/2ml Vial SLOW IVP SCH ×2 (08:24→20:04)
[2018-02-11] MEDS ORDERED: Potassium Chloride 20 MEQ in Premix Bag 1 BAG IVPB SCH (09:45)
[2018-02-11] MEDS ORDERED: ALPRAZolam 0.25 MG TAB PO PRN (10:38)
[2018-02-11] MEDS: Sucralfate 1 GM TAB PO SCH ×4 (11:29→20:04)
[2018-02-11] MEDS: Amlodipine 5 MG TAB PO SCH (11:31)
[2018-02-11] MEDS: Bisacodyl 5 MG TAB PO SCH (11:33)
[2018-02-11] MEDS: Megestrol Acetate 800 MG/20 ML UDCUP PO SCH (11:34)
[2018-02-11] MEDS: Enoxaparin Sodium 40 MG/0.4 ML SYRINGE SC SCH (11:34)
[2018-02-11] MEDS: Ketorolac Tromethamine 30 MG/ML VIAL IVP PRN ×2 (11:38→19:03)
--- NOTE | 2018-02-11 13:08 | SPC ---
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 Technique: Left upper extremity was prepped and draped in the usual sterile fashion after obtaining informed con sent. Site overlying the upper extremity was anesthetized using 1% Lidocaine. Under ultrasound guidan ce, a micropuncture access kit was utilized to gain access to the left basilic vein. The guidewire wa s advanced to the level of the IVC. 5 Nepali catheter sheath was then placed. A dual-lumen PICC line trimmed to 46 cm was guided over the wire through the sheath. The sheath and wire were removed. The c atheter flushed and aspirated appropriately. The tip of the catheter was seen at the cavoatrial junct ion. Patient tolerated the procedure without difficulty. IMPRESSION: Successful ultrasound and fluoroscopically guided left upper extremity PICC line placement. Total fluoroscopic time: 0.5 minutes Total exposure: 3181 mGy*cm^2 POS: [facility]
--- NOTE | 2018-02-11 13:59 | PDOC.PN ---
- Subjective Encounter Start Date: 02/11/18 Encounter Start Time: 12:30 Subjective: pt up in bed sleeping, arousable -: Nurse stated earlier pt was very confused - Objective Resuscitation Status: Resuscitation Status FULL:Full Resuscitation Vital Signs & Weight: Vital Signs (12 hours) Temp Pulse Resp BP BP Pulse Ox 02/11/18 13:34 88 18 157/80 H 96 02/11/18 11:31 105 H 175/99 H 02/11/18 11:20 97.7 F 105 H 20 175/99 H 98 02/11/18 08:00 96 02/11/18 07:12 97.8 F 100 18 157/80 H 96 Weight Admit Weight 209 lb Weight 209 lb I&O: 02/10/18 02/11/18 02/12/18 06:59 06:59 06:59 Intake Total 1740 1540 590 Output Total 400 850 Balance 1340 690 590 Result Diagrams: 02/11/18 04:15 02/11/18 04:15 Additional Labs: Accuchecks 02/11/18 13:06 POC Glucose 142 H Phys Exam - Physical Examination Neck: no nodes, no JVD, supple, full ROM Respiratory: no wheezing, no rales, no rhonchi, wheezing present, clear to auscultation bilateral Cardiovascular: RRR, no significant murmur, no rub, gallop, irregular Gastrointestinal: soft, non-tender, no distention, positive bowel sounds Dx/Plan (1) Acute encephalopathy Code(s): G93.40 - ENCEPHALOPATHY, UNSPECIFIED Status: Resolved Comment: on and off episodes of confusion. Likely due to narcotic use. MRi neg for CVA or mets (2) Metastatic cancer Code(s): C79.9 - SECONDARY MALIGNANT NEOPLASM OF UNSPECIFIED SITE Status: Acute Comment: primary unknown (3) Malnutrition Code(s): E46 - UNSPECIFIED PROTEIN-CALORIE MALNUTRITION Status: Acute (4) Hypokalemia Code(s): E87.6 - HYPOKALEMIA Status: Acute Comment: PO potassium - Plan pt is very ill!!! spoke with pathlogy about possible results from [place] -: she said she will call them back to see if any progress has been made -: pt was given tramadol and xanax and now is drowsy. ammonia level normal -: ua normal, MRI brain no lesions ? paraneoplastic syndrome -: TPN will be started today. i stopped his appetite stimulant to see if that * . can cause him to be lethargic. Review of Systems - Review of Systems Other: unable to perform - Medications/Allergies Allergies/Adverse Reactions: Allergies Allergy/AdvReac Type Severity Reaction Status Date / Time penicillamine Allergy Verified 01/29/18 23:51 Penicillins Allergy Verified 01/29/18 23:51 Medications: Current Medications Acetaminophen (Tylenol) 1,000 mg PO Q6H PRN PRN Reason: Mild Pain (1-3) Last Admin: 02/08/18 03:39 Dose: 1,000 mg Alprazolam (Xanax) 0.25 mg PO BIDPRN PRN PRN Reason: Anxiety Last Admin: 02/11/18 11:35 Dose: 0.25 mg Amlodipine Besylate (Norvasc) 5 mg PO DAILY [facility] Last Admin: 02/11/18 11:31 Dose: 5 mg Bisacodyl (Dulcolax) 10 mg PO DAILY [facility] Last Admin: 02/11/18 11:33 Dose: 10 mg Clonidine (Dtracvag-Vsa-7 Patch) 0.1 mg TD Q7DAYS@1600 [facility] Last Admin: 02/08/18 17:53 Dose: 0.1 mg Dicyclomine HCl (Bentyl) 10 mg PO QID PRN PRN Reason: Abdominal Distention Last Admin: 02/07/18 23:41 Dose: 10 mg Enoxaparin Sodium (Lovenox) 40 mg SC 0900 [facility] Last Admin: 02/11/18 11:34 Dose: 40 mg Famotidine (Pepcid) 20 mg SLOW IVP Q12HR [facility] Last Admin: 02/11/18 08:24 Dose: 20 mg Hydralazine HCl (Apresoline) 10 mg SLOW IVP Q4H PRN PRN Reason: SBP Greater Than 180 Last Admin: 02/01/18 13:42 Dose: 10 mg Dextrose/Sodium Chloride (D5 1/2 Ns) 1,000 mls @ 50 mls/hr IV .Q20H [facility] Last Admin: 02/10/18 17:25 Dose: 1,000 mls Fat Emulsion Intravenous 150 ml/ Sodium Acetate 40 meq/Sodium Chloride 30 meq/ Potassium Chloride 20 meq/Potassium Phosphate 30 mmol/Calcium Gluconate 10 meq/ Magnesium Sulfate 10 meq/Multivitamins 10 ml/ Chromium/Copper/Manganese/Seleni/ Zn 5 ml/ Dextrose/Water/ Sterile Water/ Amino Acids 2,436.7021 mls @ 101.529 mls/hr IV 2200 [facility] Ketorolac Tromethamine (Toradol) 15 mg IVP Q6H PRN PRN Reason: Pain Stop: 02/13/18 08:34 Last Admin: 02/11/18 11:38 Dose: 15 mg Labetalol HCl (Normodyne) 20 mg SLOW IVP Q4H PRN PRN Reason: Systolic BP > 180 Last Admin: 02/02/18 13:32 Dose: 20 mg Lorazepam (Ativan) 0.5 mg PO WILLCALL [facility] Last Admin: 02/08/18 10:29 Dose: 0.5 mg Megestrol Acetate (Megace) 800 mg PO DAILY [facility] Last Admin: 02/11/18 11:34 Dose: 800 mg Miscellaneous Medication (Pharmacy To Dose) 1 each IVPB PRN PRN PRN Reason: Pharmacy to dose Olmesartan (Benicar) 40 mg PO DAILY [facility] Last Admin: 02/11/18 11:33 Dose: 40 mg Ondansetron HCl (Zofran) 4 mg IVP Q6H PRN PRN Reason: Nausea/Vomiting Pantoprazole Sodium (Protonix) 40 mg PO DAILY [facility] Last Admin: 02/11/18 11:33 Dose: 40 mg Sodium Chloride (Flush - Normal Saline) 10 ml IVF Q12HR PRN PRN Reason: Saline Flush Last Admin: 02/09/18 20:12 Dose: 10 ml Sodium Chloride (Flush - Normal Saline) 10 ml IVF PRN PRN PRN Reason: Saline Flush Last Admin: 02/10/18 19:25 Dose: 10 ml Sucralfate (Carafate) 1 gm PO ACHS [facility] Last Admin: 02/11/18 11:29 Dose: 1 gm Tamsulosin HCl (Flomax) 0.8 mg PO HS [facility] Last Admin: 02/10/18 20:39 Dose: 0.8 mg Tramadol HCl (Ultram) 100 mg PO Q6H PRN PRN Reason: Severe Pain (7-10) Last Admin: 02/11/18 08:22 Dose: 100 mg
[2018-02-11] MEDS: Dextrose 5 %-0.45 % NaCl 1,000 ML IV SCH ×2 (18:38→22:52)
[2018-02-11] MEDS: Tamsulosin HCl 0.4 MG CAP PO SCH (20:04)
[2018-02-11] MEDS: [UNRECOGNIZED DRUG - OTHER] IV SCH (22:49)
[2018-02-11] MEDS: SODIUM ACETATE IV SCH (22:49)
[2018-02-11] MEDS: SODIUM CHLORIDE IV SCH (22:49)
[2018-02-11] MEDS: FAT EMULSION IV SCH (22:49)
[2018-02-12] MEDS: hydrALAZINE 20 MG/ML VIAL SLOW IVP PRN ×2 (00:19→21:10)
[2018-02-12 04:22] LABS: INR-International Normal Ratio 1.2; Prothrombin Time 15.1 SEC (12.0-14.7)
[2018-02-12 04:23] LABS: PTT 46.7 SEC (22.9-36.1)
[2018-02-12 04:30] LABS: ALT (SGPT) 52 U/L (8-55); AST (SGOT) 58 U/L (5-34); Alkaline Phosphatase 213 U/L (40-150); Anion Gap 9 mmol/L (10-20); BUN (Urea Nitrogen) 15 mg/dL (8.4-25.7); Calc. Creatinine Clearance 90 mL/min (70-130); Calcium 9.9 mg/dL (7.8-10.44); Carbon Dioxide 29 mmol/L (23-31); Cardiac Risk 8.4 (Less than 4.5); Chloride 107 mmol/L (98-107); Cholesterol 92 mg/dl (< 200 Desired); Estimated GFR-MDRD 71; Globulin 3.4 g/dL (2.4-3.5); Glucose 140 mg/dL (80-115); HDL Cholesterol 11 mg/dL (>60 Neg Risk); LDL Cholesterol, Calculated 60 mg/dL; Magnesium 1.6 mg/dL (1.6-2.6); Phosphorus 3.8 mg/dL (2.3-4.7); Protein, Total 5.4 g/dL (5.8-8.1); Sodium 142 mmol/L (136-145); Triglycerides 107 mg/dL (Less than 150)
[2018-02-12 04:35] LABS: Band 10 % (5-11); Hemoglobin 9.7 g/dL (14.0-18.0); Hypochromia SLIGHT = 6-15 cells (100X) (0-5/hpf); Lymphocytes 5 % (21-51); MDiff Complete? YES; Mean Corpuscular HGB CONC 30.8 g/dL (32.0-36.0); Mean Corpuscular Hemoglobin 28.6 pg (27.0-31.0); Mean Corpuscular Volume 93.1 fL (78.0-98.0); Mean Platelet Volume 9.6 fL (7.4-10.4); Monocytes 22 % (0-10); Neutrophil 63 % (42-75); PLT Morphology Comment Appears Adequate; Platelet Count 135 thou/uL (130-400); RBC Distribution Width 14.8 % (11.5-14.5); Red Blood Cell (RBC) Count 3.38 mill/uL (4.70-6.10); White Blood Cell (WBC) Count 21.7 thou/uL (4.8-10.8)
[2018-02-12] MEDS: traMADol HCl 50 MG TAB PO PRN ×3 (05:01→17:06)
[2018-02-12] MEDS: Ketorolac Tromethamine 30 MG/ML VIAL IVP PRN ×2 (06:06→20:17)
--- NOTE | 2018-02-12 08:09 | EKG ---
Test Reason : Blood Pressure : / mmHG Vent. Rate : 101 BPM Atrial Rate : 101 BPM P-R Int : 180 ms QRS Dur : 098 ms QT Int : 350 ms P-R-T Axes : 031 -14 030 degrees QTc Int : 453 ms Sinus tachycardia with occasional Premature ventricular complexes Nonspecific T wave abnormality Abnormal ECG When compared with ECG of 07-FEB-2018 08:00, (Unconfirmed) Fusion complexes are no longer Present Nonspecific T wave abnormality, improved in Inferior leads Nonspecific T wave abnormality, improved in Lateral leads Confirmed by CAITLIN GEORGE ([id number]) on 02/12/2018 8:08:53 AM Referred By: RAMONITA Confirmed By:CAITILN GEORGE
[2018-02-12] MEDS ORDERED: Amlodipine 5 MG TAB PO SCH (08:11)
[2018-02-12] MEDS ORDERED: ALPRAZolam 0.25 MG TAB PO PRN (08:29)
[2018-02-12] MEDS ORDERED: Potassium Chloride 40 MEQ in Premix Bag 1 BAG IVPB SCH (08:30)
--- NOTE | 2018-02-12 08:55 | PRG ---
DATE OF SERVICE: 02/12/2018 SUBJECTIVE: The patient reports he is still feeling some occasional tightness type discomfort in his periumbilical abdominal area. States it is not there presently. OBJECTIVE: VITAL SIGNS: Temperature 97.9, pulse 88, BP 183/85, respirations 18, O2 saturation 98% on 2 liters nasal cannula. GENERAL: Age appropriate male who appears ill, has some slight psychomotor delay. HEART: Regular, without murmurs. LUNGS: Clear apically slightly diminished at the bases. ABDOMEN: Slightly distended, not tense, not significantly tender. Bowel sounds are present but diminished. EXTREMITIES: Reveal 1+ pitting edema to about 4 inches above the ankle. NEUROLOGIC: The patient appears to be relatively intact this morning having a fairly normal interaction, although albeit a little bit delayed. IMPRESSION AND PLAN: 1. Adenocarcinoma of unknown primary. The patient has multiple lesions throughout multiple organs including lungs and bone. Biopsies have been obtained; however, no primary has yet to be identified. A sample has been sent to the [facility] for further investigation to see if we can determine what the primary is so that the treatment plan can be devised. The patient's family has expressed an interest in going to [facility] for a second opinion; however, they need a tissue diagnosis in order to make that happen. 2. Acute encephalopathy, seems to be significantly improved this morning, sounds like it has been intermittent, may be due to some use of opioids, trying to avoid those presently. 3. Malnutrition. The patient now has a PICC line and TPN has been started. The family has expressed interest in pursuing a PEG tube; however, the patient' s ascites has been a bit of a barrier to getting that accomplished at this point. 4. Hypertension. The patient's blood pressure continues to run high, has a fairly high reading this morning. We will go ahead and bump up his Norvasc to 10 mg every day. He does have p.r.n. medications available to him should he need it. 5. Leukocytosis, presumably secondary reaction to the metastatic disease. 6. Mild coagulopathy, again secondary to metastatic disease and poor nutrition. 7. Hypokalemia. We will replete. MTDD
[2018-02-12] MEDS: Potassium Chloride 20 MEQ in Premix Bag 1 BAG IVPB SCH ×2 (09:14→11:15)
[2018-02-12] MEDS: Enoxaparin Sodium 40 MG/0.4 ML SYRINGE SC SCH (09:14)
[2018-02-12] MEDS: Famotidine/PF 20 mg/2ml Vial SLOW IVP SCH ×2 (09:14→20:07)
[2018-02-12] MEDS: Bisacodyl 5 MG TAB PO SCH (09:15)
[2018-02-12] MEDS: Sucralfate 1 GM TAB PO SCH ×4 (09:15→20:07)
[2018-02-12] MEDS: Amlodipine 10 MG TAB PO SCH (09:15)
[2018-02-12] MEDS ORDERED: Dextrose 50% Abboject 50 ML SYRINGE IVP PRN (18:06)
[2018-02-12] MEDS ORDERED: HumaLOG 300 UNITS/3 ML VIAL SC PRN (18:06)
[2018-02-12] MEDS ORDERED: Dextrose 5% in Water 1,000 ML IV PRN (18:06)
[2018-02-12] MEDS: Tamsulosin HCl 0.4 MG CAP PO SCH (20:07)
[2018-02-12] MEDS: Dextrose 5 %-0.45 % NaCl 1,000 ML IV SCH (20:26)
[2018-02-12] MEDS: [UNRECOGNIZED DRUG - OTHER] IV SCH (22:58)
[2018-02-12] MEDS: FAT EMULSION IV SCH (22:58)
[2018-02-12] MEDS: SODIUM ACETATE IV SCH (22:58)
[2018-02-12] MEDS: SODIUM CHLORIDE IV SCH (22:58)
[2018-02-13] MEDS: Acetaminophen 500 MG TAB PO PRN ×3 (00:16→21:23)
[2018-02-13 04:33] LABS: Band 7 % (5-11); Hemoglobin 9.8 g/dL (14.0-18.0); Lymphocytes 6 % (21-51); MDiff Complete? YES; Mean Corpuscular HGB CONC 31.4 g/dL (32.0-36.0); Mean Corpuscular Volume 92.3 fL (78.0-98.0); Mean Platelet Volume 9.3 fL (7.4-10.4); Monocytes 33 % (0-10); Neutrophil 54 % (42-75); PLT Morphology Comment Appears Adequate; Platelet Count 140 thou/uL (130-400); RBC Distribution Width 14.9 % (11.5-14.5); Red Blood Cell (RBC) Count 3.39 mill/uL (4.70-6.10); White Blood Cell (WBC) Count 25.7 thou/uL (4.8-10.8)
[2018-02-13 04:54] LABS: ALT (SGPT) 58 U/L (8-55); AST (SGOT) 70 U/L (5-34); Albumin 2.1 g/dL (3.4-4.8); Alkaline Phosphatase 232 U/L (40-150); Anion Gap 10 mmol/L (10-20); BUN (Urea Nitrogen) 18 mg/dL (8.4-25.7); Bilirubin, Total 1.1 mg/dL (0.2-1.2); Calc. Creatinine Clearance 103 mL/min (70-130); Calcium 10.1 mg/dL (7.8-10.44); Carbon Dioxide 27 mmol/L (23-31); Chloride 104 mmol/L (98-107); Cholesterol 88 mg/dl (< 200 Desired); Estimated GFR-MDRD 83; Globulin 3.6 g/dL (2.4-3.5); Glucose 133 mg/dL (80-115); HDL Cholesterol 11 mg/dL (>60 Neg Risk); LDL Cholesterol, Calculated 58 mg/dL; Magnesium 1.8 mg/dL (1.6-2.6); Phosphorus 4.4 mg/dL (2.3-4.7); Potassium 3.2 mmol/L (3.5-5.1); Protein, Total 5.7 g/dL (5.8-8.1); Sodium 138 mmol/L (136-145); Triglycerides 94 mg/dL (Less than 150)
[2018-02-13] MEDS: Dextrose 5 %-0.45 % NaCl 1,000 ML IV SCH ×2 (05:20→16:16)
[2018-02-13] MEDS: Famotidine/PF 20 mg/2ml Vial SLOW IVP SCH ×2 (09:01→20:45)
[2018-02-13] MEDS: Bisacodyl 5 MG TAB PO SCH (09:01)
[2018-02-13] MEDS: Enoxaparin Sodium 40 MG/0.4 ML SYRINGE SC SCH (09:01)
[2018-02-13] MEDS: Amlodipine 10 MG TAB PO SCH (09:01)
[2018-02-13] MEDS: Sucralfate 1 GM TAB PO SCH ×2 (09:01→12:30)
[2018-02-13] MEDS: traMADol HCl 50 MG TAB PO PRN ×2 (09:13→21:23)
[2018-02-13] MEDS ORDERED: Heparin 1,000 UNITS/ML VIAL ONE (11:11)
[2018-02-13] MEDS ORDERED: Lidocaine 1% PF 5 ML VIAL ONE (12:53)
[2018-02-13] MEDS ORDERED: Sodium Bicarbonate 2.5 MEQ/5 ML VIAL ONE (12:53)
--- NOTE | 2018-02-13 12:55 | PDOC.PN ---
- Subjective Encounter Start Date: 02/13/18 Encounter Start Time: 10:00 Subjective: pt up in bed complains of pain to his abdomen - Objective Resuscitation Status: Resuscitation Status FULL:Full Resuscitation Vital Signs & Weight: Vital Signs (12 hours) Temp Pulse Resp BP Pulse Ox 02/13/18 11:10 97.4 F L 97 20 143/84 H 98 02/13/18 09:01 95 02/13/18 08:00 97 02/13/18 07:14 97.8 F 95 18 162/77 H 97 02/13/18 03:55 99 20 171/81 H Weight Admit Weight 209 lb Weight 209 lb I&O: 02/12/18 02/13/18 02/14/18 06:59 06:59 06:59 Intake Total 4090 4932 Output Total 525 750 Balance 3565 4182 Result Diagrams: 02/13/18 03:53 02/13/18 03:54 Additional Labs: Accuchecks 02/13/18 02/13/18 02/12/18 12:33 05:43 23:47 POC Glucose 120 H 139 H 129 H 02/12/18 16:06 POC Glucose 137 H Phys Exam - Physical Examination Neck: no nodes, no JVD, supple, full ROM Respiratory: no wheezing, no rales, no rhonchi, wheezing present, clear to auscultation bilateral Cardiovascular: RRR, no significant murmur, no rub, gallop, irregular Gastrointestinal: soft, positive bowel sounds mild distention and pain on palpation of abdomen Musculoskeletal: no edema, pulses present, edema present Dx/Plan (1) Acute encephalopathy Code(s): G93.40 - ENCEPHALOPATHY, UNSPECIFIED Status: Resolved Comment: on and off episodes of confusion. Likely due to narcotic use. MRi neg for CVA or mets (2) Metastatic cancer Code(s): C79.9 - SECONDARY MALIGNANT NEOPLASM OF UNSPECIFIED SITE Status: Acute Comment: primary unknown (3) Malnutrition Code(s): E46 - UNSPECIFIED PROTEIN-CALORIE MALNUTRITION Status: Acute (4) Hypokalemia Code(s): E87.6 - HYPOKALEMIA Status: Acute Comment: PO potassium - Plan spoke with pathlogy who stated pt has undiff maligant cancer -: still not sure orgin. Oncology has been notified -: will get paracentesis if he has any fluid which is causing abd pain * . Review of Systems - Review of Systems Respiratory: negative: Cough, Dry, Shortness of Breath, Hemoptysis, SOB with Excertion, Pleuritic Pain, Sputum, Wheezing Cardiovascular: negative: chest pain, palpitations, orthopnea, paroxysmal nocturnal dyspnea, edema, light headedness, other Gastrointestinal: negative: Nausea, Vomiting, Abdominal Pain, Diarrhea, Constipation, Melena, Hematochezia, Other Genitourinary: negative: Dysuria, Frequency, Incontinence, Hematuria, Retention , Other - Medications/Allergies Allergies/Adverse Reactions: Allergies Allergy/AdvReac Type Severity Reaction Status Date / Time penicillamine Allergy Verified 01/29/18 23:51 Penicillins Allergy Verified 01/29/18 23:51 Medications: Current Medications Acetaminophen (Tylenol) 1,000 mg PO Q6H PRN PRN Reason: Mild Pain (1-3) Last Admin: 02/13/18 09:13 Dose: 1,000 mg Albuterol/Ipratropium (Duoneb) 3 ml NEB Q6H PRN PRN Reason: SOB &/or Wheezing Alprazolam (Xanax) 0.25 mg PO BIDPRN PRN PRN Reason: Anxiety Amlodipine Besylate (Norvasc) 10 mg PO DAILY [facility] Last Admin: 02/13/18 09:01 Dose: 10 mg Bisacodyl (Dulcolax) 10 mg PO DAILY [facility] Last Admin: 02/13/18 09:01 Dose: 10 mg Clonidine (Lhkpqccg-Saa-6 Patch) 0.1 mg TD Q7DAYS@1600 [facility] Last Admin: 02/08/18 17:53 Dose: 0.1 mg Dextrose/Water (Dextrose 50%) 25 gm IVP PRN PRN PRN Reason: HYPOGLYCEMIA PROTOCOL Dicyclomine HCl (Bentyl) 10 mg PO QID PRN PRN Reason: Abdominal Distention Last Admin: 02/07/18 23:41 Dose: 10 mg Enoxaparin Sodium (Lovenox) 40 mg SC 0900 [facility] Last Admin: 02/13/18 09:01 Dose: 40 mg Famotidine (Pepcid) 20 mg SLOW IVP Q12HR [facility] Last Admin: 02/13/18 09:01 Dose: 20 mg Glucagon (Glucagon) 1 mg IM PRN PRN PRN Reason: HYPOGLYCEMIA PROTOCOL Hydralazine HCl (Apresoline) 10 mg SLOW IVP Q4H PRN PRN Reason: SBP Greater Than 180 Last Admin: 02/12/18 21:10 Dose: 10 mg Dextrose/Sodium Chloride (D5 1/2 Ns) 1,000 mls @ 50 mls/hr IV .Q20H [facility] Last Admin: 02/13/18 05:20 Dose: Not Given Dextrose/Water (D5w) 1,000 mls @ 0 mls/hr IV INF PRN PRN Reason: HYPOGLYCEMIA PROTOCOL Fat Emulsion Intravenous 150 ml/ Sodium Acetate 40 meq/Sodium Chloride 30 meq/ Potassium Chloride 40 meq/Potassium Phosphate 30 mmol/Calcium Gluconate 5 meq/ Magnesium Sulfate 10 meq/Multivitamins 10 ml/ Chromium/Copper/Manganese/Seleni/ Zn 5 ml/ Dextrose/Water/ Sterile Water/ Amino Acids 2,435.8326 mls @ 101.529 mls/hr IV 2200 [facility] Insulin Human Lispro (Humalog) 0 units SC .MILD SLIDING SCALE PRN; Protocol PRN Reason: MILD SLIDING SCALE Labetalol HCl (Normodyne) 20 mg SLOW IVP Q4H PRN PRN Reason: Systolic BP > 180 Last Admin: 02/02/18 13:32 Dose: 20 mg Miscellaneous Medication (Pharmacy To Dose) 1 each IVPB PRN PRN PRN Reason: Pharmacy to dose Olmesartan (Benicar) 40 mg PO DAILY [facility] Last Admin: 02/13/18 09:01 Dose: 40 mg Ondansetron HCl (Zofran) 4 mg IVP Q6H PRN PRN Reason: Nausea/Vomiting Pantoprazole Sodium (Protonix) 40 mg PO DAILY [facility] Last Admin: 02/13/18 09:02 Dose: 40 mg Sodium Chloride (Flush - Normal Saline) 10 ml IVF Q12HR PRN PRN Reason: Saline Flush Last Admin: 02/09/18 20:12 Dose: 10 ml Sodium Chloride (Flush - Normal Saline) 10 ml IVF PRN PRN PRN Reason: Saline Flush Last Admin: 02/10/18 19:25 Dose: 10 ml Sucralfate (Carafate) 1 gm PO ACHS [facility] Last Admin: 02/13/18 12:30 Dose: Not Given Tamsulosin HCl (Flomax) 0.8 mg PO HS [facility] Last Admin: 02/12/18 20:07 Dose: 0.8 mg
--- NOTE | 2018-02-13 14:42 | ULT ---
ULTRASOUND GUIDED PARACENTESIS: Date: 02/13/18 HISTORY: Abdominal distention, ascites. TECHNIQUE: After informed consent was obtained, the patient was placed on the sonography table in supine positio n. Limited sonographic evaluation of the abdomen was performed. An area in the mid axillary line righ t upper quadrant was marked, and the area was meticulously prepped and draped in the usual sterile fa shion. Skin and subcutaneous tissues were infiltrated with buffered 1% lidocaine for local anesthesia. A sma ll skin incision was made. Utilizing concurrent real-time ultrasound guidance, a 19 gauge Yueh needle with 5 Indonesian sheath was advanced into the abdomen. After return of fluid, the sheath was advanced, and needle was removed. Approximately 3 liters of dark, serosanguinous tinged fluid was aspirated. Th e introducer sheath was removed, and hemostasis was achieved with direct pressure. A dry, sterile anton ssing was placed. The patient tolerated the procedure well and without immediate complication. IMPRESSION: Technically successful ultrasound guided paracentesis. POS: [facility]
[2018-02-13] MEDS: Tamsulosin HCl 0.4 MG CAP PO SCH (20:43)
[2018-02-13] MEDS: [UNRECOGNIZED DRUG - OTHER] IV SCH (22:44)
[2018-02-13] MEDS: SODIUM ACETATE IV SCH (22:44)
[2018-02-13] MEDS: FAT EMULSION IV SCH (22:44)
[2018-02-13] MEDS: SODIUM CHLORIDE IV SCH (22:44)
[2018-02-14 06:09] LABS: ALT (SGPT) 70 U/L (8-55); AST (SGOT) 78 U/L (5-34); Alkaline Phosphatase 261 U/L (40-150); Anion Gap 9 mmol/L (10-20); BUN (Urea Nitrogen) 15 mg/dL (8.4-25.7); Bilirubin, Total 1.6 mg/dL (0.2-1.2); Calc. Creatinine Clearance 123 mL/min (70-130); Calcium 9.5 mg/dL (7.8-10.44); Carbon Dioxide 25 mmol/L (23-31); Cardiac Risk 6.9 (Less than 4.5); Chloride 104 mmol/L (98-107); Cholesterol 76 mg/dl (< 200 Desired); Estimated GFR-MDRD Greater than 90; Globulin 3.5 g/dL (2.4-3.5); Glucose 133 mg/dL (80-115); HDL Cholesterol 11 mg/dL (>60 Neg Risk); LDL Cholesterol, Calculated 49 mg/dL; Magnesium 1.7 mg/dL (1.6-2.6); Phosphorus 3.8 mg/dL (2.3-4.7); Potassium 3.3 mmol/L (3.5-5.1); Protein, Total 5.5 g/dL (5.8-8.1); Sodium 135 mmol/L (136-145); Triglycerides 80 mg/dL (Less than 150)
[2018-02-14 06:18] LABS: Band 8 % (5-11); Hemoglobin 9.9 g/dL (14.0-18.0); Lymphocytes 1 % (21-51); MDiff Complete? YES; Mean Corpuscular HGB CONC 31.1 g/dL (32.0-36.0); Mean Corpuscular Hemoglobin 28.5 pg (27.0-31.0); Mean Corpuscular Volume 91.7 fL (78.0-98.0); Mean Platelet Volume 9.8 fL (7.4-10.4); Metamyelocyte 1 % (0-0); Monocytes 31 % (0-10); Neutrophil 59 % (42-75); PLT Morphology Comment Appears Decreased; Platelet Count 127 thou/uL (130-400); RBC Morphology Normal; Red Blood Cell (RBC) Count 3.47 mill/uL (4.70-6.10); White Blood Cell (WBC) Count 30.2 thou/uL (4.8-10.8)
[2018-02-14] MEDS: traMADol HCl 50 MG TAB PO PRN ×2 (07:01→18:21)
[2018-02-14] MEDS: Acetaminophen 500 MG TAB PO PRN ×2 (07:01→18:21)
[2018-02-14] MEDS: Enoxaparin Sodium 40 MG/0.4 ML SYRINGE SC SCH (08:37)
[2018-02-14] MEDS: Famotidine/PF 20 mg/2ml Vial SLOW IVP SCH ×2 (08:37→20:25)
[2018-02-14] MEDS: Bisacodyl 5 MG TAB PO SCH (08:38)
[2018-02-14] MEDS: Amlodipine 10 MG TAB PO SCH (08:38)
[2018-02-14] MEDS ORDERED: Furosemide 40 MG/4 ML VIAL SLOW IVP SCH (10:15)
[2018-02-14 10:29] LABS: Troponin I 0.051 ng/mL (< 0.028)
[2018-02-14 11:16] LABS: Bilirubin Negative (Negative); Blood, Urine Negative (Negative); Clarity CLEAR (Clear); Glucose, Urine (Dipstick) Negative (Negative); Leukocyte Negative (Negative); Nitrite Negative (Negative); Protein, Urine (Dipstick) Negative (Neg-Trace); Specific Gravity, Urine 1.014 (1.002-1.036); pH, Urine 5.5 (5.0-9.0)
[2018-02-14 11:23] LABS: Bacteria/HPF None Seen HPF (None Seen); Hyaline Casts/LPF 0-3 HYALINE CAST LPF (0-3 Hyaline); Pathc Cast-AUWi Flag 0.29 (0-2.49); Squamous Epithelial None Seen HPF (0-3); WBC/HPF 0-3 HPF (0-3)
--- NOTE | 2018-02-14 13:17 | RAD ---
ABDOMEN 1 VIEW: HISTORY: Pain. COMPARISON: None. FINDINGS: Nonspecific bowel gas pattern. No suspicious densities in the abdomen or pelvis. No pneumoperitoneu m on the supine projection. IMPRESSION: Nonspecific bowel gas pattern. POS: JAMES
--- NOTE | 2018-02-14 13:19 | RAD ---
CHEST 1 VIEW: HISTORY: Shortness of breath. COMPARISON: None. FINDINGS: Left-sided PICC line terminates in the SVC/right atrial junction. Normal cardiac silhouette. Lungs and pleural spaces are clear. No pneumothorax or osseous abnormalities. IMPRESSION: No acute cardiopulmonary process. POS: H
[2018-02-14] MEDS: Dextrose 5 %-0.45 % NaCl 1,000 ML IV SCH (15:32)
--- NOTE | 2018-02-14 16:47 | PDOC.PN ---
- Subjective Encounter Start Date: 02/14/18 Encounter Start Time: 12:30 Subjective: pt up in bed complain of abdominal pain - Objective Resuscitation Status: Resuscitation Status FULL:Full Resuscitation Vital Signs & Weight: Vital Signs (12 hours) Temp Pulse Resp BP Pulse Ox 02/14/18 15:58 97.7 F 104 H 20 136/66 99 02/14/18 11:01 97.8 F 101 H 171/85 H 99 02/14/18 08:38 101 H 02/14/18 08:00 100 02/14/18 07:32 98.7 F 101 H 18 174/82 H 100 Weight Admit Weight 209 lb Weight 209 lb I&O: 02/13/18 02/14/18 02/15/18 06:59 06:59 06:59 Intake Total 4932 300 Output Total 750 1050 Balance 4182 -1050 300 Result Diagrams: 02/14/18 11:16 02/14/18 05:25 Additional Labs: Accuchecks 02/14/18 02/14/18 02/14/18 11:59 05:22 00:26 POC Glucose 148 H 119 H 144 H 02/13/18 18:18 POC Glucose 132 H Phys Exam - Physical Examination Neck: no nodes, no JVD, supple, full ROM Respiratory: no wheezing, no rales, no rhonchi, wheezing present, clear to auscultation bilateral Cardiovascular: RRR, no significant murmur, no rub, gallop, irregular Gastrointestinal: soft, positive bowel sounds pain on palpation of flank area Dx/Plan (1) Acute encephalopathy Code(s): G93.40 - ENCEPHALOPATHY, UNSPECIFIED Status: Resolved Comment: on and off episodes of confusion. Likely due to narcotic use. MRi neg for CVA or mets (2) Metastatic cancer Code(s): C79.9 - SECONDARY MALIGNANT NEOPLASM OF UNSPECIFIED SITE Status: Acute Comment: primary unknown (3) Malnutrition Code(s): E46 - UNSPECIFIED PROTEIN-CALORIE MALNUTRITION Status: Acute (4) Hypokalemia Code(s): E87.6 - HYPOKALEMIA Status: Acute Comment: PO potassium - Plan s/p 3L of fluid via paracentesis -: kub/cxr no acute process -: pt's wbc still high no fever will start empiric abx -: will add megace * . spoke with pt's about code status. Explained the poor outcome if he was intubated. She wants to give him a chance and wants everything to be done as of now. She is hopeful that oncology will offer her chemo. I have informed her that pt is very weak for chemo but may be immune therapy is a possibility. will start pt on megace. Review of Systems - Review of Systems Respiratory: negative: Cough, Dry, Shortness of Breath, Hemoptysis, SOB with Excertion, Pleuritic Pain, Sputum, Wheezing Cardiovascular: negative: chest pain, palpitations, orthopnea, paroxysmal nocturnal dyspnea, edema, light headedness, other Gastrointestinal: Abdominal Pain Genitourinary: negative: Dysuria, Frequency, Incontinence, Hematuria, Retention , Other Musculoskeletal: negative: Neck Pain, Shoulder Pain, Arm Pain, Back Pain, Hand Pain, Leg Pain, Foot Pain, Other - Medications/Allergies Allergies/Adverse Reactions: Allergies Allergy/AdvReac Type Severity Reaction Status Date / Time penicillamine Allergy Verified 01/29/18 23:51 Penicillins Allergy Verified 01/29/18 23:51 Medications: Current Medications Acetaminophen (Tylenol) 1,000 mg PO Q6H PRN PRN Reason: Mild Pain (1-3) Last Admin: 02/14/18 07:01 Dose: 1,000 mg Albuterol/Ipratropium (Duoneb) 3 ml NEB Q6H PRN PRN Reason: SOB &/or Wheezing Alprazolam (Xanax) 0.25 mg PO BIDPRN PRN PRN Reason: Anxiety Amlodipine Besylate (Norvasc) 10 mg PO DAILY [facility] [place] Last Admin: 02/14/18 08:38 Dose: 10 mg Bisacodyl (Dulcolax) 10 mg PO DAILY [facility] [place] Last Admin: 02/14/18 08:38 Dose: 10 mg Clonidine (Jrziaint-Ara-7 Patch) 0.1 mg TD Q7DAYS@1600 [facility] [place] Last Admin: 02/08/18 17:53 Dose: 0.1 mg Dextrose/Water (Dextrose 50%) 25 gm IVP PRN PRN PRN Reason: HYPOGLYCEMIA PROTOCOL Dicyclomine HCl (Bentyl) 10 mg PO QID PRN PRN Reason: Abdominal Distention Last Admin: 02/07/18 23:41 Dose: 10 mg Enoxaparin Sodium (Lovenox) 40 mg SC 0900 [facility] [place] Last Admin: 02/14/18 08:37 Dose: 40 mg Famotidine (Pepcid) 20 mg SLOW IVP Q12HR [facility] Last Admin: 02/14/18 08:37 Dose: 20 mg Glucagon (Glucagon) 1 mg IM PRN PRN PRN Reason: HYPOGLYCEMIA PROTOCOL Hydralazine HCl (Apresoline) 10 mg SLOW IVP Q4H PRN PRN Reason: SBP Greater Than 180 Last Admin: 02/12/18 21:10 Dose: 10 mg Dextrose/Sodium Chloride (D5 1/2 Ns) 1,000 mls @ 50 mls/hr IV .Q20H [facility] [place] Last Admin: 02/14/18 15:32 Dose: 1,000 mls Dextrose/Water (D5w) 1,000 mls @ 0 mls/hr IV INF PRN PRN Reason: HYPOGLYCEMIA PROTOCOL Fat Emulsion Intravenous 150 ml/ Sodium Acetate 40 meq/Sodium Chloride 30 meq/ Potassium Chloride 40 meq/Potassium Phosphate 30 mmol/Calcium Gluconate 5 meq/ Magnesium Sulfate 10 meq/Multivitamins 10 ml/ Chromium/Copper/Manganese/Seleni/ Zn 5 ml/ Dextrose/Water/ Sterile Water/ Amino Acids 2,435.8326 mls @ 101.529 mls/hr IV 2200 [facility] [place] Last Admin: 02/13/18 22:44 Dose: 2,435.8326 mls Meropenem 1 gm/ Sodium (Chloride) 100 mls @ 200 mls/hr IVPB Q8HR [facility] [place] Insulin Human Lispro (Humalog) 0 units SC .MILD SLIDING SCALE PRN; Protocol PRN Reason: MILD SLIDING SCALE Labetalol HCl (Normodyne) 20 mg SLOW IVP Q4H PRN PRN Reason: Systolic BP > 180 Last Admin: 02/02/18 13:32 Dose: 20 mg Megestrol Acetate (Megace) 40 mg PO BID [facility] [place] Miscellaneous Medication (Pharmacy To Dose) 1 each IVPB PRN PRN PRN Reason: Pharmacy to dose Olmesartan (Benicar) 40 mg PO DAILY [facility] [place] Last Admin: 02/14/18 08:38 Dose: 40 mg Ondansetron HCl (Zofran) 4 mg IVP Q6H PRN PRN Reason: Nausea/Vomiting Pantoprazole Sodium (Protonix) 40 mg PO DAILY [facility] [place] Last Admin: 02/14/18 08:42 Dose: 40 mg Sodium Chloride (Flush - Normal Saline) 10 ml IVF Q12HR PRN PRN Reason: Saline Flush Last Admin: 02/13/18 20:46 Dose: 10 ml Sodium Chloride (Flush - Normal Saline) 10 ml IVF PRN PRN PRN Reason: Saline Flush Last Admin: 02/10/18 19:25 Dose: 10 ml Tamsulosin HCl (Flomax) 0.8 mg PO HS [facility] [place] Last Admin: 02/13/18 20:43 Dose: 0.8 mg Tramadol HCl (Ultram) 100 mg PO Q6H PRN PRN Reason: Moderate to Severe Pain (6-10) Last Admin: 02/14/18 07:01 Dose: 100 mg
[2018-02-14 18:25] LABS: Troponin I 0.068 ng/mL (< 0.028)
[2018-02-14] MEDS: Tamsulosin HCl 0.4 MG CAP PO SCH (20:25)
[2018-02-14] MEDS: Megestrol Acetate 40 MG TAB PO SCH (20:26)
[2018-02-14] MEDS: SODIUM CHLORIDE IV SCH (22:09)
[2018-02-14] MEDS: FAT EMULSION IV SCH (22:09)
[2018-02-14] MEDS: SODIUM ACETATE IV SCH (22:09)
[2018-02-14] MEDS: [UNRECOGNIZED DRUG - OTHER] IV SCH (22:09)
[2018-02-14] MEDS: MEROPENEM 1 GM/50 ML 1 GM in Premix Bag 1 BAG IVPB SCH (22:30)
[2018-02-15] MEDS: Dextrose 5 %-0.45 % NaCl 1,000 ML IV SCH (05:04)
[2018-02-15] MEDS: MEROPENEM 1 GM/50 ML 1 GM in Premix Bag 1 BAG IVPB SCH ×2 (05:05→14:37)
[2018-02-15 05:54] LABS: Hemoglobin 9.5 g/dL (14.0-18.0); Mean Corpuscular HGB CONC 29.9 g/dL (32.0-36.0); Mean Corpuscular Hemoglobin 27.5 pg (27.0-31.0); Platelet Count 144 thou/uL (130-400); RBC Distribution Width 15.2 % (11.5-14.5); Red Blood Cell (RBC) Count 3.47 mill/uL (4.70-6.10); White Blood Cell (WBC) Count 45.4 thou/uL (4.8-10.8)
[2018-02-15 06:17] LABS: ALT (SGPT) 78 U/L (8-55); AST (SGOT) 79 U/L (5-34); Alkaline Phosphatase 300 U/L (40-150); Anion Gap 8 mmol/L (10-20); BUN (Urea Nitrogen) 16 mg/dL (8.4-25.7); Bilirubin, Total 1.6 mg/dL (0.2-1.2); Calc. Creatinine Clearance 117 mL/min (70-130); Calcium 9.7 mg/dL (7.8-10.44); Carbon Dioxide 30 mmol/L (23-31); Chloride 103 mmol/L (98-107); Cholesterol 83 mg/dl (< 200 Desired); Estimated GFR-MDRD Greater than 90; Globulin 3.7 g/dL (2.4-3.5); Glucose 124 mg/dL (80-115); HDL Cholesterol Less than 8 mg/dL (>60 Neg Risk); Magnesium 1.6 mg/dL (1.6-2.6); Phosphorus 3.9 mg/dL (2.3-4.7); Potassium 3.3 mmol/L (3.5-5.1); Protein, Total 5.7 g/dL (5.8-8.1); Sodium 138 mmol/L (136-145); Triglycerides 92 mg/dL (Less than 150)
[2018-02-15 06:24] LABS: Band 6 % (5-11); Lymphocytes 15 % (21-51); MDiff Complete? YES; Monocytes 37 % (0-10); Neutrophil 41 % (42-75); PLT Morphology Comment Appears Adequate; RBC Morphology Normal
[2018-02-15 07:13] LABS: Cardiac Risk TEST NOT PERFORMED (Less than 4.5)
[2018-02-15] MEDS ORDERED: Potassium Chloride 20 MEQ TAB PO SCH (09:00)
[2018-02-15] MEDS: Bisacodyl 5 MG TAB PO SCH (09:30)
[2018-02-15] MEDS: Famotidine/PF 20 mg/2ml Vial SLOW IVP SCH ×2 (09:30→20:58)
[2018-02-15] MEDS: Amlodipine 10 MG TAB PO SCH (09:30)
[2018-02-15] MEDS: Enoxaparin Sodium 40 MG/0.4 ML SYRINGE SC SCH (09:31)
[2018-02-15] MEDS: Megestrol Acetate 40 MG TAB PO SCH (09:38)
--- NOTE | 2018-02-15 09:48 | PDOC.EVN ---
Event Note - Event Note Event Note: pt's wbc today is 45, he was confused last night and was put on 4 point restraint. Spoke with oncology about his change in mental condition. Also spoke with ID for any possible source. Id recommended LP which i agree to look for carcinomatous. will check ct brain and do a ammonia level. blood cx, cxr, kub done on friday were negative. spoke with Mrs stafford about his declining condition also spoke about hospice. She was very emotional and will talk with her family about it.
--- NOTE | 2018-02-15 11:56 | CT ---
HEAD CT NONCONTRAST: INDICATION: Acute confusion. FINDINGS: There is no evidence of intracranial hemorrhage, mass effect, or midline shift. Ventricular system i s within normal limits of size. IMPRESSION: No acute intracranial hemorrhage or mass effect. POS: JAMES
[2018-02-15] MEDS: Acetaminophen 500 MG TAB PO PRN (13:20)
--- NOTE | 2018-02-15 13:44 | PRG ---
DATE OF SERVICE: 02/15/2018 SUBJECTIVE: Patient has developed altered mental status. He is still with abdominal pain and had a repeat paracentesis, some tachypnea. He is voiding in the urinal. OBJECTIVE: VITAL SIGNS: T-max 98.1, blood pressure 140/90, pulse 124, respirations 24, O2 sat 98 on 2 liters na grabiel cannula. GENERAL: The patient is confused, drowsy. HEENT: Ocular movements are conjugate. LUNGS: Symmetric air entry. HEART: S1, S2, regular rate. ABDOMEN: Distended with diffuse moderate tenderness. EXTREMITIES: He is able to move extremities. LABORATORY DATA: White cell count is up to 45,000, hemoglobin 9.5, platelets 144, 41% neutrophils, 6 % bands, 15% lymphocytes, 37% monocytes. Chemistry with a creatinine of 0.8, sodium 138, bilirubin 1 .6, AST 79, ALT 78, alkaline phosphatase 300. Albumin 2.0, serum protein electrophoresis with no andree dence of monoclonal spike. Blood cultures no growth. 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 CSF evaluation may be carried out, although I believe that he has leukemoid reaction from the invasiveness of the malignancy. Evidently, he is not going to be a candidate for any chemotherapeuti c trial and would advise hospice consultation.
[2018-02-15] MEDS ORDERED: Metoprolol Tartrate 25 MG TAB PO SCH (13:45)
--- NOTE | 2018-02-15 13:56 | PDOC.PN ---
- Subjective Encounter Start Date: 02/15/18 Encounter Start Time: 08:30 Subjective: pt up in bed in 4 point restraint -: Per nursing he became very confused - Objective Resuscitation Status: Resuscitation Status FULL:Full Resuscitation Vital Signs & Weight: Vital Signs (12 hours) Temp Pulse Resp BP Pulse Ox 02/15/18 09:30 124 H 02/15/18 08:46 124 H 02/15/18 08:00 97.5 F L 160 H 24 H 140/90 98 02/15/18 05:25 102 H 02/15/18 04:33 97.6 F 140 H 24 H 126/91 H 99 02/15/18 03:31 99 Weight Admit Weight 209 lb Weight 209 lb I&O: 02/14/18 02/15/18 02/16/18 06:59 06:59 06:59 Intake Total 2600 100 Output Total 1050 1500 Balance -1050 1100 100 Result Diagrams: 02/15/18 05:35 02/15/18 05:35 Additional Labs: Accuchecks 02/15/18 02/15/18 02/14/18 11:38 05:11 23:23 POC Glucose 144 H 133 H 140 H 02/14/18 17:45 POC Glucose 137 H Phys Exam - Physical Examination Neck: no nodes, no JVD, supple, full ROM Respiratory: no wheezing, no rales, no rhonchi, wheezing present, clear to auscultation bilateral tachycardia Gastrointestinal: positive bowel sounds mild distention, painful on palpation Musculoskeletal: no edema, pulses present, edema present Dx/Plan (1) Acute encephalopathy Code(s): G93.40 - ENCEPHALOPATHY, UNSPECIFIED Status: Resolved Comment: on and off episodes of confusion. Likely due to narcotic use. MRi neg for CVA or mets (2) Metastatic cancer Code(s): C79.9 - SECONDARY MALIGNANT NEOPLASM OF UNSPECIFIED SITE Status: Acute Comment: primary unknown (3) Malnutrition Code(s): E46 - UNSPECIFIED PROTEIN-CALORIE MALNUTRITION Status: Acute (4) Hypokalemia Code(s): E87.6 - HYPOKALEMIA Status: Acute Comment: PO potassium - Plan spoke with consultants about pt's overall's worsening status -: will get LP to see if he has meningeal involvement -: will continue abx for now -: spoke with about possible hospice given his overall poor condition * . Review of Systems - Review of Systems Other: unable to perform - Medications/Allergies Allergies/Adverse Reactions: Allergies Allergy/AdvReac Type Severity Reaction Status Date / Time penicillamine Allergy Verified 01/29/18 23:51 Penicillins Allergy Verified 01/29/18 23:51 Medications: Current Medications Acetaminophen (Tylenol) 1,000 mg PO Q6H PRN PRN Reason: Mild Pain (1-3) Last Admin: 02/15/18 13:20 Dose: 1,000 mg Albuterol/Ipratropium (Duoneb) 3 ml NEB Q6H PRN PRN Reason: SOB &/or Wheezing Alprazolam (Xanax) 0.25 mg PO BIDPRN PRN PRN Reason: Anxiety Last Admin: 02/14/18 22:31 Dose: 0.25 mg Amlodipine Besylate (Norvasc) 10 mg PO DAILY [facility] Last Admin: 02/15/18 09:30 Dose: 10 mg Bisacodyl (Dulcolax) 10 mg PO DAILY [facility] Last Admin: 02/15/18 09:30 Dose: 10 mg Clonidine (Pyerpmnk-Oid-9 Patch) 0.1 mg TD Q7DAYS@1600 [facility] Last Admin: 18 17:53 Dose: 0.1 mg Dextrose/Water (Dextrose 50%) 25 gm IVP PRN PRN PRN Reason: HYPOGLYCEMIA PROTOCOL Dicyclomine HCl (Bentyl) 10 mg PO QID PRN PRN Reason: Abdominal Distention Last Admin: 02/07/18 23:41 Dose: 10 mg Enoxaparin Sodium (Lovenox) 40 mg SC 0900 [facility] Last Admin: 02/15/18 09:31 Dose: 40 mg Famotidine (Pepcid) 20 mg SLOW IVP Q12HR [facility] Last Admin: 02/15/18 09:30 Dose: 20 mg Glucagon (Glucagon) 1 mg IM PRN PRN PRN Reason: HYPOGLYCEMIA PROTOCOL Hydralazine HCl (Apresoline) 10 mg SLOW IVP Q4H PRN PRN Reason: SBP Greater Than 180 Last Admin: 02/12/18 21:10 Dose: 10 mg Dextrose/Sodium Chloride (D5 1/2 Ns) 1,000 mls @ 50 mls/hr IV .Q20H [facility] Last Admin: 02/15/18 05:04 Dose: 1,000 mls Dextrose/Water (D5w) 1,000 mls @ 0 mls/hr IV INF PRN PRN Reason: HYPOGLYCEMIA PROTOCOL Fat Emulsion Intravenous 150 ml/ Sodium Acetate 40 meq/Sodium Chloride 30 meq/ Potassium Chloride 40 meq/Potassium Phosphate 30 mmol/Calcium Gluconate 5 meq/ Magnesium Sulfate 10 meq/Multivitamins 10 ml/ Chromium/Copper/Manganese/Seleni/ Zn 5 ml/ Dextrose/Water/ Sterile Water/ Amino Acids 2,435.8326 mls @ 101.529 mls/hr IV 2200 [facility] Last Admin: 02/14/18 22:09 Dose: 2,435.8326 mls Meropenem 1 gm/ Device 50 mls @ 100 mls/hr IVPB Q8HR [facility] Last Admin: 02/15/18 05:05 Dose: 50 mls Insulin Human Lispro (Humalog) 0 units SC .MILD SLIDING SCALE PRN; Protocol PRN Reason: MILD SLIDING SCALE Labetalol HCl (Normodyne) 20 mg SLOW IVP Q4H PRN PRN Reason: Systolic BP > 180 Last Admin: 02/02/18 13:32 Dose: 20 mg Metoprolol Tartrate (Lopressor) 12.5 mg PO BID [facility] Metoprolol Tartrate (Lopressor) 12.5 mg PO NOW [facility] Stop: 02/15/18 15:45 Miscellaneous Medication (Pharmacy To Dose) 1 each IVPB PRN PRN PRN Reason: Pharmacy to dose Olmesartan (Benicar) 40 mg PO DAILY [facility] Last Admin: 02/15/18 09:30 Dose: 40 mg Ondansetron HCl (Zofran) 4 mg IVP Q6H PRN PRN Reason: Nausea/Vomiting Pantoprazole Sodium (Protonix) 40 mg PO DAILY [facility] Last Admin: 02/15/18 09:31 Dose: 40 mg Sodium Chloride (Flush - Normal Saline) 10 ml IVF Q12HR PRN PRN Reason: Saline Flush Last Admin: 02/13/18 20:46 Dose: 10 ml Sodium Chloride (Flush - Normal Saline) 10 ml IVF PRN PRN PRN Reason: Saline Flush Last Admin: 02/10/18 19:25 Dose: 10 ml Tamsulosin HCl (Flomax) 0.8 mg PO HS [facility] Last Admin: 02/14/18 20:25 Dose: 0.8 mg Tramadol HCl (Ultram) 100 mg PO Q6H PRN PRN Reason: Moderate to Severe Pain (6-10) Last Admin: 02/14/18 18:21 Dose: 100 mg
[2018-02-15] MEDS ORDERED: Potassium Chloride 20 MEQ in Premix Bag 1 BAG IVPB SCH (16:00)
--- NOTE | 2018-02-15 16:54 | PDOC.EVN ---
Event Note - Event Note Event Note: spoke with pt's and son discussed medical outcomes. Family does not want pt to undergo LP. They want the pt to be comfortable. Family want pt to go to hospice. will make pt DNR. case preparer and liner consulted. will add dustin frye.
[2018-02-15] MEDS: cloNIDine 0.1mg/24 Hour PATCH TD SCH (17:35)
[2018-02-15] MEDS: Haloperidol Lactate 5 MG/ML VIAL SLOW IVP PRN (19:51)
[2018-02-15] MEDS: Metoprolol Tartrate 25 MG TAB PO SCH (20:51)
[2018-02-15] MEDS: Tamsulosin HCl 0.4 MG CAP PO SCH (20:51)
[2018-02-15] MEDS ORDERED: Lorazepam 2 MG/ML VIAL SLOW IVP SCH (21:00)
[2018-02-16] MEDS ORDERED: Lorazepam 2 MG/ML VIAL SLOW IVP SCH (01:00)
[2018-02-16] MEDS: Haloperidol Lactate 5 MG/ML VIAL SLOW IVP PRN ×2 (07:50→19:37)
[2018-02-16] MEDS: Famotidine/PF 20 mg/2ml Vial SLOW IVP SCH (08:21)
[2018-02-16] MEDS: Metoprolol Tartrate 25 MG TAB PO SCH (08:21)
[2018-02-16] MEDS: Bisacodyl 5 MG TAB PO SCH (08:21)
[2018-02-16 09:04] VITALS: BP 110/59; TEMP 97.9
--- NOTE | 2018-02-17 01:45 | DIS ---
DATE OF ADMISSION: 01/29/2018 DATE OF DISCHARGE TO HOSPICE: Today is 02/16/2018. DISCHARGE DIAGNOSES: 1. Acute encephalopathy. 2. Metastatic cancer. 3. Malnutrition. 4. Hypokalemia. HOSPITAL COURSE: The patient is a very unfortunate 67-year-old very pleasant man with no significant past medical history who initially presented to the hospital with abdominal pain, was found to have initially back in December was thought to be infectious in process. He was treated with antibiotics . However, has splenic lesions continued to worsen. At this time, possible malignancy was considere d. He did have exploratory lap done which indicated significant omentum seeding and also significant nodular in his abdominal cavity. A biopsy was taken and also his ascites fluid was sent for cytolog y. The patient's cancer was undifferentiated carcinoma. These slides were also sent to the [facility]; however, after significant staining again no specific origin of the cancer was noted. The patie nt also had multiple myeloma workup, which was negative. He was also seen by Oncology while during [facility]. The patient continued to decline he was not able to eat, had significant change in ment al status. Multiple infections workup was done, which were negative. Multiple CAT scans were done, which was negative. Finally, the patient's family decided to make patient comfortable since he could not tolerate any chemotherapy or any immunotherapy given his poor status since he has been very maln ourished for some time now. The patient had no desire to eat also. The patient will be transitioned to hospice. I did speak with the family extensively yesterday. PHYSICAL EXAMINATION: VITAL SIGNS: No vital signs were done since the patient is going to hospice. GENERAL: The patient was awake, confused, appears to be comfortable. ABDOMEN: Mildly distended. Bowel sounds are present x2. CHEST: Clear to auscultation. No rhonchi or wheezes noted. EXTREMITIES: Mild edema. CARDIOVASCULAR: S1, S2 present. Mildly tachycardic. Again, the patient will be transitioned to hospice. I have continued the patient's morphine and also patient's Seroquel and Ativan.
== END 2018-02-16 20:06 | disposition hospice, inpatient (51) | DRG 981 ==
LOC: ERS 18:26 → ONC 22:20
PROVIDERS: ADMIT Internal Medicine; ATTEND Internal Medicine
PROC: 0DB98ZX Excision of Duodenum, Via Natural or Artificial Opening Endoscopic, Diagnostic (ICD-10-PCS; 2018-02-01)
PROC: 0DJD8ZZ Inspection of Lower Intestinal Tract, Via Natural or Artificial Opening Endoscopic (ICD-10-PCS; 2018-02-01)
PROC: 0FB24ZX Excision of Left Lobe Liver, Percutaneous Endoscopic Approach, Diagnostic (ICD-10-PCS; 2018-02-03)
PROC: 0QB23ZX Excision of Right Pelvic Bone, Percutaneous Approach, Diagnostic (ICD-10-PCS; 2018-02-03)
PROC: 0W9F4ZZ Drainage of Abdominal Wall, Percutaneous Endoscopic Approach (ICD-10-PCS; 2018-02-03)
PROC: 06H033Z Insertion of Infusion Device into Inferior Vena Cava, Percutaneous Approach (ICD-10-PCS; 2018-02-11)
PROC: B549ZZA Ultrasonography of Inferior Vena Cava, Guidance (ICD-10-PCS; 2018-02-11)
PROC: 0W9G3ZZ Drainage of Peritoneal Cavity, Percutaneous Approach (ICD-10-PCS; principal; 2018-02-13)
DX: C78.00 Secondary malignant neoplasm of unspecified lung (principal); G92 Toxic encephalopathy; C79.51 Secondary malignant neoplasm of bone; C78.6 Secondary malignant neoplasm of retroperitoneum and peritoneum; D68.9 Coagulation defect, unspecified; E44.0 Moderate protein-calorie malnutrition; C78.7 Secondary malignant neoplasm of liver and intrahepatic bile duct; C78.89 Secondary malignant neoplasm of other digestive organs; E87.6 Hypokalemia; Z51.5 Encounter for palliative care; Z66 Do not resuscitate; Z78.1 Physical restraint status; I10 Essential (primary) hypertension; T50.995A Adverse effect of other drugs, medicaments and biological substances, initial encounter; Y92.9 Unspecified place or not applicable; N40.0 Benign prostatic hyperplasia without lower urinary tract symptoms; R62.7 Adult failure to thrive; R00.0 Tachycardia, unspecified; K31.7 Polyp of stomach and duodenum; E66.9 Obesity, unspecified; Z68.30 Body mass index [BMI] 30.0-30.9, adult; E83.52 Hypercalcemia
CPT/HCPCS: 20225; 36415; 36416; 36569; 49083; 70450; 70553; 71045; 71260; 71275; 74018; 77012; 80048; 80053; 80061; 80076; 80202; 81001; 82140; 82378; 82553; 83735; 84100; 84134; 84153; 84165; 84443; 84484; 85025; 85048; 85097; 85610; 85730; 87040; 87070; 87077; 87086; 87205; 88112; 88305; 88307; 88311; 88313; 88325; 88341; 88342; 93005; 93010; 96361; 96365; 96368; A4217; A9579; C1751; G8978-GP-CL; G8978-GP-CM; G8979-GP-CJ; G8979-GP-CK; G8987-GO-CK; G8988-GO-CI; J0360; J0670; J1100; J1630; J1644; J1650; J1885; J1940; J2001; J2060; J2185; J2270; J2405; J2704; J2920; J2997; J3010; J3370; J3475; J3480; J7050; S0028; S0179